=== PATIENT | male | born 1975 | race Two or more races ===

== ENCOUNTER 2023-09-14 09:34 | Outpatient (REF) | payer MEDICARE, SELFPAY ==
[2023-09-14 14:19] LABS: MANUAL DIFF FLAG NO
[2023-09-14 14:25] LABS: Basophils Absolute Auto 0.1 X10*3/uL (0.0-0.2); Eosinophils Absolute Auto 0.1 X10*3/uL (0.0-0.4); Eosinophils Percent Auto 1.4 % (0-4); Hematocrit 44.7 % (42.0-52.0); Hemoglobin 15.6 g/dl (14.0-18.0); Imm Gran Abs Auto 0.02 X10*3/uL (0.00-0.03); Imm Gran Pct Auto 0.3 % (0.0-0.4); Lymphocytes Absolute Auto 1.8 X10*3/uL (1.2-4.9); Mean Corpuscular HGB Conc 34.9 g/dl (31.0-36.0); Mean Platelet Volume 12.4 fL (9.4-12.4); Monocytes Absolute Auto 0.5 X10*3/uL (0.1-1.2); Monocytes Percent Auto 7.4 % (2-11); Neutrophils Absolute Auto 4.8 x10*3/uL (2.0-8.3); Neutrophils Percent Auto 64.9 % (45-73); Platelet Count 245 X10*3/uL (160-400); Red Cell Distribution Width 11.7 % (11.0-16.0); White Blood Count 7.3 X10*3/uL (4.8-10.8)
[2023-09-14 15:11] LABS: Creatinine Urine 65.13 mg/dL; Microalbum/Creatinine Ratio Ur 90.5 ug/mg cr (<30)
[2023-09-14 15:59] LABS: Alanine Aminotransferase 18 U/L (0-40); Albumin Level 4.5 g/dL (3.5-5.0); Alkaline Phosphatase 72 U/L (39-117); Anion Gap 21 (12-20); Aspartate Amino Transferase 23 U/L (5-37); Bilirubin Total 0.9 mg/dL (0.0-1.0); Blood Urea Nitrogen 12 mg/dL (9-16); Calcium 9.9 mg/dL (8.4-10.2); Carbon Dioxide 25 mmol/L (22-29); Chloride 95 mmol/L (96-108); Cholesterol 173 mg/dL (<200); Estimated Glomerular Filt Rate > 60; Glucose Random 371 mg/dL (60-115); HDL Cholesterol 31 mg/dL (>40); Iron 103 mcg/dL (45-160); LDL Cholesterol Calculated 109 mg/dL (<100); Percent Iron Saturation 43 % (15-50); Potassium 3.7 mmol/L (3.3-5.1); Sodium 137 mmol/L (135-145); TSH reflex Free T4 1.62 uIU/mL (0.32-4.0); Total Iron Binding Capacity 239 mcg/dL (228-428); Triglycerides 169 mg/dL (<150); Unsaturated Iron Binding 136 ug/dL
[2023-09-15 04:19] LABS: ~HepC Num1 0.19 S/CO (0.00-0.79); ~Hepatitis C Antibody Nonreactive (Nonreactive)
[2023-09-18 23:09] LABS: HIV RNA PCR Qn Copies Not Detected Copies/mL; HIV RNA PCR Qn Log Copies Not Detected Log cps/mL
== END 2023-09-14 09:35 | disposition home or self-care (01) ==
LOC: HO.CHCLDS 09:34
PROVIDERS: Visit Provider Internal Medicine
DX: E11.65 Type 2 diabetes mellitus with hyperglycemia (principal); Z79.4 Long term (current) use of insulin
CPT/HCPCS: 36415; 80053; 80061; 82043; 82570; 83540; 84443; 85025; 86803; 87536; 87900

== ENCOUNTER 2023-11-09 09:15 | Outpatient (REF) | payer MEDICARE, SELFPAY ==
[2023-11-09 15:20] LABS: Alanine Aminotransferase 19 U/L (0-40); Albumin Level 4.9 g/dL (3.5-5.0); Alkaline Phosphatase 58 U/L (39-117); Anion Gap 16 (12-20); Aspartate Amino Transferase 28 U/L (5-37); Bilirubin Total 0.8 mg/dL (0.0-1.0); Blood Urea Nitrogen 18 mg/dL (9-16); Calcium 10.3 mg/dL (8.4-10.2); Carbon Dioxide 26 mmol/L (22-29); Chloride 97 mmol/L (96-108); Cholesterol 175 mg/dL (<200); Estimated Glomerular Filt Rate > 60; Glucose Random 151 mg/dL (60-115); HDL Cholesterol 36 mg/dL (>40); LDL Cholesterol Calculated 106 mg/dL (<100); Potassium 3.4 mmol/L (3.3-5.1); Sodium 136 mmol/L (135-145); Total Protein 8.8 g/dL (6.5-8.0); Triglycerides 168 mg/dL (<150)
== END 2023-11-09 09:16 | disposition home or self-care (01) ==
LOC: HO.CHCLDS 09:15
PROVIDERS: Visit Provider Internal Medicine
DX: E11.65 Type 2 diabetes mellitus with hyperglycemia (principal); Z79.4 Long term (current) use of insulin
CPT/HCPCS: 36415; 80053; 80061

== ENCOUNTER 2023-12-08 08:48 | Outpatient (REF) | payer MEDICARE, SELFPAY ==
[2023-12-10 10:18] LABS: Follicle Stimulating Hormone 6.7 mIU/mL (1.4-12.8); Lutenizing Hormone 4.8 mIU/mL (1.5-9.3); Prolactin 3.3 ng/mL (2.0-18.0)
[2023-12-14 14:52] LABS: Testosterone, Free 61.2 pg/mL (35.0-155.0); Testosterone, Total 342 ng/dL (250-1100)
== END 2023-12-08 08:49 | disposition home or self-care (01) ==
LOC: HO.CHCLDS 08:48
PROVIDERS: Visit Provider Internal Medicine
DX: R68.82 Decreased libido (principal)
CPT/HCPCS: 36415; 83001; 83002; 84146; 84402; 84403

== ENCOUNTER 2024-03-21 08:32 | Outpatient (REF) | payer MEDICARE, SELFPAY ==
[2024-03-21 09:32] LABS: Alanine Aminotransferase 27 U/L (0-40); Albumin Level 4.5 g/dL (3.5-5.0); Alkaline Phosphatase 69 U/L (39-117); Anion Gap 11 (12-20); Aspartate Amino Transferase 35 U/L (5-37); Bilirubin Total 0.7 mg/dL (0.0-1.0); Blood Urea Nitrogen 12 mg/dL (9-16); Calcium 9.8 mg/dL (8.4-10.2); Carbon Dioxide 28 mmol/L (22-29); Chloride 107 mmol/L (96-108); Cholesterol 110 mg/dL (<200); Estimated Glomerular Filt Rate > 60; Glucose Fasting 109 mg/dL (60-99); HDL Cholesterol 23 mg/dL (>40); LDL Cholesterol Calculated 56 mg/dL (<100); Magnesium 2.3 mg/dL (1.6-2.6); Potassium 3.5 mmol/L (3.3-5.1); Sodium 142 mmol/L (135-145); Total Protein 8.1 g/dL (6.5-8.0); Triglycerides 158 mg/dL (<150)
[2024-03-21 09:48] LABS: Thyroid Stimulating Hormone 1.53 uIU/mL (0.32-4.0)
[2024-03-27 07:19] LABS: Metanephrine, Free 34 pg/mL (<=57); Normetanephrines, Free 68 pg/mL (<=148); Total Metanephrine, Free 102 pg/mL (<=205)
== END 2024-03-21 08:33 | disposition home or self-care (01) ==
LOC: HO.CHCLDS 08:32
PROVIDERS: Visit Provider Internal Medicine
DX: R07.89 Other chest pain (principal); R00.2 Palpitations; I10 Essential (primary) hypertension
CPT/HCPCS: 36415; 80053; 80061; 83735; 83835; 84443

== ENCOUNTER 2024-08-02 10:37 | Outpatient (REF) | payer OTHER, SELFPAY ==
--- OUTSIDE RECORDS SUMMARY | 2024-08-02 11:19 | XMS_ITS | Encounter Summary ---
Author Organization [employer] Address [address] [facility] [address] [place] [address] Care Team Providers Care Assembler Camper Name Role Phone Sam Bacon MD Primary Care Prov ider Reason for Visit * Reason Comments Filling Encounter Details Date Type Department Care Team ([facility] Contact Info) Description 07/12/2024 10:00 AM EST Office Visit [facility] ADULT DENTAL [address] [place], [place] [phone] Marco Steele [address] [place] [address] Social History Tobacco Use Types Packs/Day Years Used Date Smoking Tobacco: Former Cigarettes Q uit: 2002 Smokeless Tobacco: Never Alcohol Use Standard Drinks/Week Comments Never 0 (1 standard drink = 0.6 oz pur e alcohol) Depression Answer Date Recorded Patient Health Questionnaire-9 Score 11 09/14/2023 Patient Health Questionnaire-9 Score 11 09/14/2023 Last PHQ-9: Questionnaire Data Not on file 0 09/14/2023 Housing Stability Answer Date Recorded What is your housing situation today? I have hossein chaparro 09/07/[address] you li ve. Do you have problems with any of the following? None of the above 09/07/2023 Food Insecurity Answer Date Recorded Within the past 12 months, y ou worried that your food would run out before you got money to buy more: Never True 09/07/2023 Within the past 12 months,th e food you bought just didn't last and you didn't have enough money to get more: Never True 01/2024 Transportation Answer Date Recorded In the past 12 months, has l ack of transportation kept you from medical appts, meetings, work or from getting things needed for daily living? No 09/07/2023 Utilities Answer Date Recorded In the past 12 months, has t he electric, gas, oil or water company threatened to shut off services in your home? No 09/07/2023 Depression Answer Date Recorded Patient Health Questionnaire-2 Score 2 09/14/2023 Sex and Gender Information Value Date Recorded Sex Assigned at Male 08/25/2023 10:42 AM EST Legal Sex Male 10:40 AM EST Gender Identity Male 08/25/2023 10:42 AM EST Sexual Orientation Straight 08/25/2023 10 :42 AM EST documented as of this encounter Last Filed Vital Signs Vital Sign Reading Time Taken Comments Blood Pressure 124/86 07/12/2024 9:39 AM EST Pulse - - Temperature - - Respiratory Rate - - Oxygen Saturation - - Inhaled Oxygen Concentration - - Weight - - Height - - Body Mass Index - - documented in this encounter Progress Notes * Macro Steele - 07/12/2024 10:00 AM EST Dental procedures in this visit D5110.8 - BITE REGISTRATION (Completed) Service provider: Marco Steele Billing provider: Thi Boland DDS Patient ID: Juani Ornelas is a 49 y.o. male. Time Out: Date: 07/12/2024 Location: [facility] Tooth: Maxilla and Mandible Procedure: Dentures Verified the above with patient, sales assistant displays, and provider. Confirmed via patient's chart, intraorally and by radiographs. Silver Spray Worker: not applicable Upper and Lower arch bite registration done by Dr. Marco Steele for upper and lower acrylic complete/partial denture. Medical history: Reviewed in EHR Vitals: Blood pressure 124/86. Allergies: Reviewed in EHR Medications: Reviewed in EHR - Upper and lower bite registration done on wax rims. - Shade selected (with patient's choice): A3.5 - Teeth requested: Trubyte - Case to be sent to: [facility]. - Case asked to be back on: 07/26/24 Patient satisfied, left in stable condition NV: Try in teeth set in wax Provider: Dr. Marco Steele Punchboard Filling Machine Operator: Pao Hayes Supervising dentist: Dr. Attardi * Thi Boland DDS - 07/12/2024 10:00 AM EST I have reviewed the documentation and dental procedures completed by the rendering provider, Marco Steele DDS, and approve their chart entries for this visit. JONNY Angulo DDS documented in this encounter Plan of Treatment Upcoming Encounters Date Type Department Care Team (Late st Contact Info) Description 10/18/2024 8:00 AM EDT Office Visit [facility] ADULT DENTAL [address] [place] [address] Adolph Cummings Scheduled Orders Name Type Priority Associated Diagnoses Orde r Schedule DENTAL LAB DENTURES AND PARTIALS Dental Routine Ordered: 025 documented as of this encounter Procedures Procedure Name Priority Date/Time Associated Diagnosis Comments BITE REGISTRATION Routine 07/12/2024 10:00 AM EST documented in this encounter Visit Diagnoses Not on filedocumented in this encounter Additional Health Concerns Assessment Noted Time PHQ-9 Depression Total Score: 11 024 9:07 AM EDT documented as of this encounter Care Teams Assembler Camper Relationship Specialty Start Date End Date Sam Bacon MD [address] [place] [address] PCP - General Internal Medicine 09/14/23 documented as of this encounter
--- OUTSIDE RECORDS SUMMARY | 2024-08-02 11:19 | XMS_ITS | Encounter Summary ---
Author Organization [employer] Address [address] [facility] 7t [place] [address] Care Team Providers Care Burrer Operator Name Role Phone Sam Bacon MD Primary Care Prov ider Encounter Details Date Type Department Care Team (Late st Contact Info) Description 09/18/2023 Orders Only [facility] CHC MED & PEDS [address] [place], [place] [phone] Sam Bacon MD [address] [place] [address] Social History Tobacco Use Types Packs/Day Years [...] AM EST documented as of this encounter Plan of Treatment Upcoming Encounters Date Type Department Care Team (Late st Contact Info) Description 10/18/2024 8:00 AM EDT Office Visit [facility] ADULT DENTAL [address] [place] [address] Adolph Cummings documented as of this encounter Visit Diagnoses Not on filedocumented in this encounter Additional Health Concerns Assessment Noted Time PHQ-9 Depression Total Score: 11 024 9:07 AM EDT documented as of this encounter Care Teams Burrer Operator Relationship Specialty Start Date End Date Sam Bacon MD [address] [place] [address] PCP - General Internal Medicine 09/14/23 documented as of this encounter
--- OUTSIDE RECORDS SUMMARY | 2024-08-02 11:19 | XMS_ITS | Encounter Summary ---
Author Organization [employer] Address [address] [facility] [address] [place] [address] Care Team Providers Care Die Tripper Name Role Phone Sam Bacon MD Primary Care Prov ider Reason for Visit * Reason Onset Date Comments Chart Prep 07/17/2024 Encounter Details Date Type Department Care Team ([facility] st Contact Info) Description 07/17/2024 Telephone [facility] CHC MED & PEDS [address] [place] [address] Sam Bacon MD [address] [place] [address] Chart Prep Social History Tobacco Use Types Packs/Day Years [...] AM EST documented as of this encounter Miscellaneous Notes * Telephone Encounter - Floresita Sepulveda [place] - 07/17/2024 4:13 PM EST Chart Prep Labs: not applicable Images: not applicable Vaccines due: yes Referrals: complete Screenings: colonoscopy , eye exam , STI screening Overdue care gaps: A1C, Glucose, Disability screening documented in this encounter Plan of Treatment Upcoming Encounters Date Type Department Care Team (Late st Contact Info) Description 10/18/2024 8:00 AM EDT Office Visit [facility] ADULT DENTAL [address] [place] [address] Adolph Cummings documented as of this encounter Visit Diagnoses Not on filedocumented in this encounter Additional Health Concerns Assessment Noted Time PHQ-9 Depression Total Score: 11 024 9:07 AM EDT documented as of this encounter Care Teams Die Tripper Relationship Specialty Start Date End Date Sam Bacon MD [address] [place] [address] PCP - General Internal Medicine 09/14/23 documented as of this encounter
--- OUTSIDE RECORDS SUMMARY | 2024-08-02 11:19 | XMS_ITS | Clinical Summary ---
Author Organization [facility] Address [address] [place] [address] Care Team Providers Care Stave Jointer Name Role Phone Pcp, No MD Primary Care Provider Unavailabl e Allergies No known active allergies Medications losartan-hydroch lorothiazide (HYZAAR) 100-25 mg per tablet Take 1 tablet by mouth daily. Active metoprolol succinate XL (TOPROL-XL) 100 mg 24 hr tablet Take 100 mg by mouth daily. Active pregabalin (LYRICA) 100 mg capsule Take 100 mg by mouth 2 (two) times a day. Active atorvastatin (LIPITOR) 20 mg tablet Take 20 mg by mouth daily. Active OLANZapine (ZyPREXA) 15 mg tablet Take 15 mg by mouth nightly. Active clonazePAM (KlonoPIN) 2 mg tablet Take 2 mg by mouth 2 (two) times a day as needed for seizures. Active buPROPion XL (WELLBUTRIN XL) 300 mg 24 hr tablet Take 300 mg by mouth daily. Active gabapentin (NEURONTIN) 600 mg tablet Take 600 mg by mouth 3 (three) times a day. Active amLODIPine (NORVASC) 5 mg tablet Take 5 mg by mouth daily. Active Social History Tobacco Use Types Packs/Day Years Used Date Smoking Tobacco: Every Day Smokeless Tobacco: Never Alcohol Use Standard Drinks/Week Comments No 0 (1 standard drink = 0.6 oz pur e alcohol) Sex and Gender Information Value Date Recorded Sex Assigned at Not on file Legal Sex Male 9:58 AM EST Gender Identity Not on file Sexual Orientation Not on file Plan of Treatment Health Maintenance Due Date Last Done Comments CT Colonography 1975 Colonoscopy 1975 Colorectal Cancer Screening 1975 FIT-DNA (Cologuard) 1975 FIT 1975 FOBT 1975 Flex Sigmoidoscopy - 5y 1975 HIV Screening 1975 DTaP,Tdap,and Td Vaccines (1 - Tdap) 1993 Hepatitis B Vaccines (1 of 3 - 19+ 3-dose series) 1994 COVID-19 Vaccine (1 - 2023-2 5 season) 2024 Influenza Vaccine (#1) 2024 Zoster Vaccines (1 of 2) 2025 HPV Vaccines Aged Out No longer eligi ble based on patient's age to complete this topic Hepatitis A Vaccines Aged Out No long er eligible based on patient's age to complete this topic MMR Vaccines Aged Out No longer eligi ble based on patient's age to complete this topic Meningococcal Vaccine Aged Out No niecy shamir eligible based on patient's age to complete this topic Pneumococcal Vaccine: Pediat rics (0 to 5 Years) and At-Risk Patients (6 to 64 Years) Aged Out No longer eligible b ased on patient's age to complete this topic Insurance MEDICAID OUT OF STATE MEDICARE [place] [address] Care Teams Stave Jointer Relationship Specialty Start Date End Date PcpAmeila MD [address] [place] [address] PCP - General Internal Medicine 06/20/18
--- OUTSIDE RECORDS SUMMARY | 2024-08-02 11:19 | XMS_ITS | Encounter Summary ---
Author Organization [email or web address] Address [address] [facility] 7t [place] [address] Care Team Providers Care Historiographer Name Role Phone Sam Bacon MD Primary Care Prov ider Encounter Details Date Type Department Care Team (Late st Contact Info) Description 07/18/2024 8:45 AM EST Office Visit [facility] CHC MED & PEDS [address] [place], [place] [phone] Sam Bacon MD [address] [place] [address] Encounter for immunization (Primary Dx); Type 2 diabetes mellitus with hyperglycemia, with long-term current use of insulin (CMS/HCC); Primary hypertension; Screening for colon cancer Social History Tobacco Use Types Packs/Day Years [...] Sign Reading Time Taken Comments Blood Pressure 141/92 07/18/2024 8:57 AM EST Pulse 100 07/18/2024 8:57 AM EST Temperature 37.1 ??C (98.7 ??F) 07/18/2024 8:57 AM ES T Respiratory Rate 20 07/18/2024 8:57 AM EST Oxygen Saturation - - Inhaled Oxygen Concentration - - Weight 85.7 kg (189 lb) 07/18/2024 8:57 AM EST Height 172.7 cm (5' 8 ) 07/18/2024 8:57 AM EST Body Mass Index 28.74 07/18/2024 8:57 AM EST documented in this encounter Progress Notes * Sam Coreas MD - 07/18/2024 8:45 AM EST Subjective Patient ID: Juani Ornelas is a 49 y.o. male who presents for No chief complaint on file.. Diabetes He presents for his follow-up diabetic visit. He has type 2 diabetes mellitus. His disease course has been improving. Pertinent negatives for hypoglycemia include no headaches. Pertinent negatives for diabetes include no chest pain, no fatigue, no foot paresthesias, no foot ulcerations, no polydipsia, no polyphagia and no polyuria. Hypertension This is a chronic problem. The problem is controlled. Pertinent negatives include no chest pain, headaches, palpitations, peripheral edema or shortness of breath. Review of Systems Constitutional: Negative for fatigue. Respiratory: Negative for shortness of breath. Cardiovascular: Negative for chest pain and palpitations. Endocrine: Negative for polydipsia, polyphagia and polyuria. Neurological: Negative for headaches. Objective Physical Exam Constitutional: Appearance: Normal appearance. Cardiovascular: Rate and Rhythm: Normal rate. Pulmonary: Effort: Pulmonary effort is normal. No respiratory distress. Breath sounds: Normal breath sounds. No stridor. No wheezing or rhonchi. Abdominal: General: Abdomen is flat. There is no distension. Tenderness: There is no abdominal tenderness. There is no guarding or rebound. Neurological: General: No focal deficit present. Mental Status: He is alert and oriented to person, place, and time. Psychiatric: Mood and Affect: Mood normal. Behavior: Behavior normal. Assessment/Plan Problem List Items Addressed This Visit Type 2 diabetes mellitus with hyperglycemia, with long-term current use of insulin ([facility]) Patient underwent sleeve gastrectomy, has lost around 30lbs since, his A1c is much better, today 6.8%, encouraged to keep low carb/no sugar diet, followed by endocrinology, no reported episode of hypoglycemia Pending eye exam Relevant Orders POCT Glucose (Completed) POCT HGB A1C (Completed) Primary hypertension Slightly elevated on todays visit, but he has anxiety/WCS, at home has remained stable, continue low sodium diet and exercise as tolerated Screening for colon cancer Patient refers has a appointment for august Other Visit Diagnoses Encounter for immunization - Primary Relevant Orders PCV-20 VACCINE 6 wks + (Completed) documented in this encounter Miscellaneous Notes * Assessment & Plan Note - Sam Coreas MD - 07/18/2024 9:48 AM ESTAssociated Problem(s): Screening for colon cancer Patient refers has a appointment for august * Assessment & Plan Note - Sam Coreas MD - 07/18/2024 9:48 AM ESTAssociated Problem(s): Type 2 diabetes mellitus with hyperglycemia, with long-term current use of insulin ([facility]) Patient underwent sleeve gastrectomy, has lost around 30lbs since, his A1c is much better, today 6.8%, encouraged to keep low carb/no sugar diet, followed by endocrinology, no reported episode of hypoglycemia Pending eye exam * Assessment & Plan Note - Sam Coreas MD - 07/18/2024 9:46 AM ESTAssociated Problem(s): Primary hypertension Slightly elevated on todays visit, but he has anxiety/WCS, at home has remained stable, continue low sodium diet and exercise as tolerated documented in this encounter Plan of Treatment Upcoming Encounters Date Type Department Care Team (Late st Contact Info) Description 10/18/2024 8:00 AM EDT Office Visit [facility] ADULT DENTAL [address] [place] [address] Adolph Cummings documented as of this encounter Procedures Procedure Name Priority Date/Time Associated Diagnosis Comments POCT GLYCATED HEMOGLOBIN, TOTAL Routine 07/18/2024 9:02 AM EST Type 2 diabetes mellitus with hyperglycemia, with long-term current use of insulin ([facility]) POCT GLUCOSE Routine 07/18/2024 9:01 AM EST Type 2 diabetes mellitus with hyperglycemia, with long-term current use of insulin ([facility]) documented in this encounter Results * (ABNORMAL) POCT HGB A1C (07/18/2024 9:02 AM EST) Hemoglobin A1C 6.8(A) 4.0 - 6.0 % QC Media Lot # [id number] Lot# Expiration Date Blood 07/18/2024 9:02 AM EST us Sam Coreas MD POINT OF CARE TEST ENTER/EDIT ORDERABLES Final Result * POCT Glucose (07/18/2024 9:01 AM EST) Glucose Blood, POC 125 60 - 200 mg/dL QC Media Lot # [id number] Lot# Expiration Date Blood Capillary blood specimen / Unknown 07/18/2024 9:01 AM EST Sam Coreas MD POINT OF CARE TEST ENTER/EDIT ORDERABLES Final Result documented in this encounter Visit Diagnoses Diagnosis Encounter for immunization- Primary Type 2 diabetes mellitus with hyperglycemia, with long-term current use of insulin ([facility]) Primary hypertension Unspecified essential hypertension Screening for colon cancer Special screening for malignant neoplasms, colon documented in this encounter Additional Health Concerns Assessment Noted Time PHQ-9 Depression Total Score: 11 09/13/ 024 9:07 AM EDT documented as of this encounter Care Teams Historiographer Relationship Specialty Start Date End Date Sam Bacon MD [address] [place] [id number] PCP - General Internal Medicine 09/14/23 documented as of this encounter
--- OUTSIDE RECORDS SUMMARY | 2024-08-02 11:19 | XMS_ITS | Encounter Summary ---
Author Organization [employer] Address [address] [facility] [address]t [place] [address] Care Team Providers Care Thermal Technician Name Role Phone Sam Bacon MD Primary Care Prov ider Encounter Details Date Type Department Care Team (Latest Contact Info) Description 07/18/2024 Travel Social History Tobacco Use Types Packs/Day Years [...] [facility] ADULT [facility] [address] [place] [address] Adolph Cummings documented as of this encounter Visit Diagnoses Not on filedocumented in this encounter Additional Health Concerns Assessment Noted Time PHQ-9 Depression Total Score: 11 024 9:07 AM EDT documented as of this encounter Care Teams Thermal Technician Relationship Specialty Start Date End Date Sam Bacon MD [address] [place] [address] PCP - General Internal Medicine 09/14/23 documented as of this encounter
--- OUTSIDE RECORDS SUMMARY | 2024-08-02 11:19 | XMS_ITS | Clinical Summary ---
Author Organization [facility] Address [address] [place] [address] Care Team Providers Care Etymology Teacher Name Role Phone Sam Bacon MD Primary Care Prov ider Allergies Active Allergy Reactions Criticality Noted Date Comments Shellfish Allergy Anaphylaxis High 10/06/2017 Shellfish-Derived Products Anaphylaxis High 10/07/19 18 Shrimp Extract Swelling 03/15/2017 All sea food Shrimp Flavor Agent (Non-Screening) Angioedema 09/14/2023 Medications rosuvastatin (Crestor) 40 MG tablet Take 1 tablet (40 mg) by mouth in the morning. 30 tablet 09/18/19 24 025 Active chlorthalidone (Hygroton) 25 MG tablet Take 1 tablet (25 mg) by mouth in the morning. 90 tablet 3 09/18/19 24 025 Active Continuous Blood Gluc Sensor (FreeStyle Oj 2 Sensor) [facility] Apply 1 sensor every 14 days 2 each 09/18/19 24 Active fluticasone (Flonase) 50 MCG/ACT nasal spray Administer 1-2 sprays into each nostril in the morning. Shake gently. Before first use, prime pump. After use, clean tip and replace cap. 16 g 2 10/12/19 24 025 Active spironolactone (Aldactone) 50 MG tablet Take 1 tablet (50 mg) by mouth 2 times daily. 60 tablet 10/27/19 24 025 Active amLODIPine (Norvasc) 5 MG tablet Take 1 tablet (5 mg) by mouth Once per day. 90 tablet 3 11/02/19 24 05/02/2 025 Active Farxiga 10 MG Take 1 tablet by mouth Once per day. 08/23/19 Active buPROPion XL (Wellbutrin XL) 300 MG 24 hr tablet Take 300 mg by mouth in the morning. Active clonazePAM (KlonoPIN) 2 MG tablet Take 1 tablet by mouth 2 times daily. 01/14/20 Active lithium 300 MG tablet Take 2 tablets by mouth 2 times daily. 03/03/20 Active metoprolol succinate XL (Toprol-XL) 100 MG 24 hr tablet Take 100 mg by mouth Once per day. Active OLANZapine (ZyPREXA) 10 MG tablet Take 10 mg by mouth at bedtime. 08/24/19 Active zolpidem (Ambien) 10 MG tablet Take 10 mg by mouth if needed at bedtime. 11/06/19 Active omeprazole (PriLOSEC) [address] capsule Take 20 mg by mouth Once per day. 09/19/19 24 Active Ozempic, 0.25 or 0.5 MG/DOSE, 2 MG/3ML solution pen-injector Inject 0.5 mg under the skin every 7 (seven) days. 10/19/19 Active hydrALAZINE (Apresoline) 50 MG tablet Take 1 tablet (50 mg) by mouth 3 times daily. 90 tablet 11 11/09/19 24 Active triamcinolone (Kenalog) 0.1 % cream Apply topically if needed in the morning and at bedtime (pain and swelling). 30 g 5 12/07/19 24 Active diphenhydrAMIN E (BENADryl) 25 MG tablet Take 1 tablet (25 mg) by mouth every 6 (six) hours if needed for itching. 30 tablet 12/07/19 24 Active Diclofenac Sodium (Voltaren) 1 % gel Apply 2 g topically 3 times daily. 300 g 01/12/20 Active aspirin 81 MG EC tablet Take 81 mg by mouth Once per day. 04/03/20 Active EPINEPHrine (Epipen) 0.3 MG/0.3ML injection syringe Inject as directed. Active pregabalin (Lyrica) 150 MG capsule Take 150 mg by mouth 2 times daily. 12/29/19 Active Lantus SoloStar 100 UNIT/ML pen Inject 42 Units under the skin 2 times daily. 3 mL 07/18/19 25 Active NovoLOG FLEXPEN 100 UNIT/ML pen Inject 3 Units under the skin with breakfast, with lunch, and with evening meal. 10 mL 07/18/19 25 Active semaglutide (Ozempic, 1 MG/DOSE,) 4 MG/3ML solution pen-injector Inject 1 mg under the skin 1 (one) time per week. 1 each 07/18/19 25 Active irbesartan (Avapro) 300 MG tablet Take 1 tablet (300 mg) by mouth at bedtime. 90 tablet 07/18/19 026 Active ibuprofen 600 MG tabletIndicati ons:Viral syndrome Take 1 tablet (600 mg) by mouth every 8 (eight) hours if needed for moderate pain or fever. 100 tablet 08/02/19 025 Active acetaminophen (Acetaminophen 8 Hour) 650 MG ER tabletIndicati ons:Viral syndrome Take 1 tablet (650 mg) by mouth every 8 (eight) hours if needed for moderate pain (fever). Do not crush, chew, or split. 100 tablet 08/02/19 25 026 Active irbesartan (Avapro) 300 MG tablet Take 1 tablet (300 mg) by mouth at bedtime. 90 tablet 09/18/19 025 Discontinued(Re order (will not trigger notification to Pharmacy)) Lantus SoloStar 100 UNIT/ML pen Inject 70 Units under the skin 2 times daily. 3 mL 10/12/19 025 Discontinued(Re order (will not trigger notification to Pharmacy)) NovoLOG FLEXPEN 100 UNIT/ML pen Inject 3 Units under the skin with breakfast, with lunch, and with evening meal. 10/19/19 025 Discontinued(Re order (will not trigger notification to Pharmacy)) Active Problems Problem Noted Date Diagnosed Date Bilateral lower extremity edema 11/02/2023 Assessment & Plan (11/02/2023 9:11 AM EDT): Bilateral lower extremity swelling, most likely related to amlodipine, will decrease dose follow up as scheduled, continue low sodium diet. High cholesterol 10/27/2023 Other chest pain 10/12/2023 Assessment & Plan (10/12/2023 11:57 AM EDT): Patient has hx of ND, refers had a chest pain last Monday, did not seek medical advise, EKG was done. 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, stress test was done on 2021 Screening for colon cancer 10/12/2023 Assessment & Plan (07/18/2024 9:48 AM EST): Patient refers has a appointment for august Assessment & Plan (10/12/2023 12:02 PM EDT): Will refer for screening colonoscopy Type 2 diabetes mellitus wit h hyperglycemia, with long-term current use of insulin 09/14/2023 Assessment & Plan (07/18/2024 9:48 AM EST): Patient underwent sleeve gastrectomy, has lost around 30lbs since, his A1c is much better, today 6.8%, encouraged to keep low carb/no sugar diet, followed by endocrinology, no reported episode of hypoglycemia Pending eye exam Assessment & Plan (11/09/2023 9:12 AM EDT): Improving, followed by endocrinology, rbelsus was changed to ozempic, target <7.0% Assessment & Plan (10/12/2023 11:53 AM EDT): Not at target, he is not adhering to diet, on farxiga, rybelsus, lantus and aspart. Will increase lantus to 70 units bid, follow up with endocrinology. Assessment & Plan (09/18/2023 2:42 PM EDT): Will send freestyle oj sensor, Assessment & Plan (09/14/2023 6:05 PM EDT): Not at target, he is not adhering to diet recommendations, he is on farxiga 10mg, rybelsus 14mg, lantus 65 units BID, and aspart as per scale Will refer for eye exam Primary hypertension 09/14/2023 Assessment & Plan (07/18/2024 9:46 AM EST): Slightly elevated on todays visit, but he has anxiety/WCS, at home has remained stable, continue low sodium diet and exercise as tolerated Assessment & Plan (12/07/2023 10:07 AM EDT): Not at target, he is not following diet recommendations and refers is forgetting to take afternoon pills, discussed importance of treatment adherence and risk of not controlling his blood pressure, will follow up in 1 month Assessment & Plan (11/09/2023 9:12 AM EDT): Not at target, will increase hydralazine to TID, continue low sodium diet, exercise, weight loss, bp monitoring, bp target <130/80, new labs will be ordered Assessment & Plan (11/02/2023 9:12 AM EDT): Not at target, will add hydralazine, follow up as scheduled, continue low sodium diet and exercise as tolerated Assessment & Plan (10/12/2023 11:51 AM EDT): Improving, on irbersartan 300mg, chlorthalidone 25mg, amlodipine 10mg, will add spironolactone 50mg, will follow up in 2 weeks Assessment & Plan (10/06/2023 10:02 AM EDT): Not controlled, on irbersatan 300mg and chlorthalidone 25mg, will add amlodipine 10mg, bp target <130/80, encouraged to keep sodium diet below 2000mg daily, follow up as scheduled In 1 week Assessment & Plan (09/18/2023 2:42 PM EDT): Not controlled, will increase irbersartan to 300mg daily and chlorthalidone 25mg daily, follow up as scheduled, target <130/80 Assessment & Plan (09/14/2023 6:04 PM EDT): Not at target but he did not took his medication this morning, reviewed importance of daily monitoring, he is on irbersartan 150/hydrochlorothiazide 12.5 and metoprolol tartrate 100mg Will follow up in 1 month Mixed hyperlipidemia 09/14/2023 Assessment & Plan (10/12/2023 11:53 AM EDT): On rosuvastatin 40mg, continue same treatment Assessment & Plan (09/14/2023 6:06 PM EDT): On rosuvastatin 20mg, will order new labs for guidance of therapy Bipolar disorder, in partial remission, most recent episode mixed 09/14/2023 Assessment & Plan (09/14/2023 6:10 PM EDT): [facility] on bupropion 300mg, lithium 300mg, olanzapine 15mg, and clonazepam 2mg, no suicidal/homicidal ideas Schizophrenia in remission 09/14/2023 Gastroesophageal reflux disease without esophagi tis 09/14/2023 Assessment & Plan (09/14/2023 6:10 PM EDT): On Omeprazole, continue lifestyle modifications Bilateral carpal tunnel syndrome 09/20/2022 Cubital tunnel syndrome 09/20/2022 H. 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 10/08/2020 Positive for macroalbuminuria 07/25/2020 BPH with obstruction/lower urinary tract symptom s 04/03/2019 Chronic pain in testicle 04/03/2019 Erectile dysfunction 04/03/2019 Obesity (BMI 30.0-34.9) 01/17/2019 Class 1 obesity due to exces s calories with body mass index (BMI) of 32.0 to 32.9 in adult 09/27/2018 Diabetes mellitus type 2 with neurological manif estations 11/28/2017 Assessment & Plan (01/07/2024 11:23 PM EDT): Followed by endocrinology, improving, continue same treatment Assessment & Plan (12/07/2023 10:05 AM EDT): A1c improved, today was 10.4%, follow up with endocrinology, Depression 10/24/2017 Balanitis 10/06/2017 Overview (10/27/2023): Uncircumcised. Urology referral Vertebral body hemangioma 10/06/2017 Overview (10/27/2023): MRI - L 1 Hyperlipidemia, mixed 10/06/2017 Overview (10/27/2023): Last Assessment & Plan: Adding Crestor 20 mg at bedtime for cardiovascular risk reduction Hypertension 10/06/2017 Overview (10/27/2023): Last Assessment & Plan: Continue current antihypertensive medications for the time being, reviewed the importance of reading labels and observing a less than 2000 mg/day sodium diet trying to avoid packaged or processed foods; also reviewed the importance of regular aerobic exercise to uphold cardiovascular health-recommended 30 minutes daily of some sort of moderately paced aerobic activity Assessment & Plan (01/07/2024 11:24 PM EDT): At home has been less than 130/80, most likely WCS related, continue current medications, encouraged low sodium diet and exercise as tolerated Fall 03/21/2017 Overview (10/27/2023): 03/17/17 [facility] Xray cervical spine WNL, lumbar spine WNL, pelvis WNL Cervicalgia 03/17/2017 Hypokalemia 03/17/2017 Right shoulder pain 03/17/2017 Overview (10/27/2023): Xrau 03/17/15 in [place] shows right glenoid degenerative subarticular cyst vs screw tracts, Overview: Xrau 03/17/15 in [place] shows right glenoid degenerative subarticular cyst vs screw tracts, 03/17/15 (in [place]) XR = glenoid degenerative subarticular cyst vs screw tracts Uncircumcised male 03/17/2017 Chest pain 03/17/2017 Overview (10/27/2023): 03/28/16 Treadmill stress test in [place] clinically positive for ischemia. SPECT study shows normal myocardial perfusion, normal LV EF - Possible microvascular disease -Has previously described symptoms of stable angina-he states that the symptoms he had prior to his hospitalization in December were chest pressure radiating to the left arm and neck occurring while he was cleaning the house; however more recently has had atypical symptoms as well -Had a previously negative stress test at a good workload however his symptoms were convincing and he had chest pain on the treadmill so proceeded to cardiac cath on 04/20/2016-the report states that he had normal epicardial coronaries and normal LV function with an ejection fraction of 65%, competent mitral valve, no gradient across the aortic valve -He was hospitalized again in December 2017 at [facility] for chest pain- ruled out with serial cardiac enzymes and again had an unremarkable nremarkable stress test -More recently presented again to [facility] May 2022 with symptoms of atypical chest pain as well as symptoms that sounded more like vertigo- presented with low blood pressures and received IV fluids with improvement in blood pressures; he again ruled out with serial cardiac enzymes, had an MRI of the brain did which did not show any acute abnormalities, was given meclizine as needed, had some of his antihypertensives decreased however, they have since been increased back up to previous dosing - Echocardiogram in May 2022 during the hospitalization showed a limited study with poor visualization but grossly low normal LV systolic function without obvious wall motion abnormalities, no hemodynamically significant valve disease, poorly visualized RV with reduced systolic function Last Assessment & Plan: Atypical and possibly noncardiac versus related to microvascular disease; I am not as worried about his symptoms however, patient is at relatively high risk for cardiovascular events given his extremely poorly controlled diabetes, continue to work with endocrinology on this; however, for risk reduction purposes, I am starting him on statin- Crestor 20 mg at bedtime-side effects reviewed with the patient who verbalized understanding and wishes to proceed, blood pressure is suboptimally controlled at today's visit but he has also had issues with hypotension in the past so we are cautiously continuing current meds which are amlodipine 5 mg daily, irbesartan/hydrochlorothiazide 150 x 12.5 mg daily, metoprolol 100 mg p.o. twice daily Type 2 diabetes mellitus wit h complication, without long-term current use of insulin 03/17/2017 Assessment & Plan (10/27/2023 10:35 AM EDT): Followed by endocrinology, on , rybelsus was changed to ozempic, lantus was increased to 78 units and aspart scale was increased 2 units, encouraged low carb/no sugar diet, continue exercise as tolerated, follow up in 1 month Chronic low back pain 03/17/2017 Overview (10/27/2023): [place]ray 03/17/15 in [place] shows lumbar spasm, L3-L4 and L4-L5 DDD with secondary spondylosis at the L3-L4 level MRI lumbar spine 06/30/15 shows early degenerative changes at L4-L55 with decreased signal intesnsity and posterior bulging of annulus fibrosis, no disc extrusions or protrusions are detected. L1 vertebral body hemangioma. Overview: Xray 03/17/15 in [place] shows lumbar spasm, L3-L4 and L4-L5 DDD with secondary spondylosis at the L3-L4 level MRI lumbar spine 06/30/15 shows early degenerative changes at L4-L55 with decreased signal intesnsity and posterior bulging of annulus fibrosis, no disc extrusions or protrusions are detected. L1 vertebral body hemangioma. Seafood allergy 03/15/2017 Essential hypertension, benign 01/05/2017 Assessment & Plan (10/27/2023 10:33 AM EDT): Improved, will increase spironolactone to 50mg bid, continue with rest of treatment, keep low sodium diet and exercise as tolerated, Follow up in 1 month Encounters Date Type Department Care Team Description 08/02/2024 8:45 AM EST Office Visit [facility] [address] [place] [address] Roberta Quinones FNP Viral syndrome (Primary Dx); Encounter for immunization 08/02/2024 Travel 07/30/2024 1:00 PM EST Office Visit [facility] [address] [place] [address] Vidya Steelericio 07/18/2024 8:45 AM EST Office Visit [facility] [address] [place] [address] Sam Bacon MD Encounter for immunization (Primary Dx); Type 2 diabetes mellitus with hyperglycemia, with long-term current use of insulin ([facility]); Primary hypertension; Screening for colon cancer 07/18/2024 Travel 07/17/2024 Telephone [facility] [address] [place] [address] Sam Bacon MD Chart Prep 07/12/2024 10:00 AM EST Office Visit [facility] [address] [place] [address] Ivette Marco 05/09/2024 9:00 AM EST Office Visit [facility] [address] [place] [address] Nat Randall DDS from Last 3 Months Immunizations Name Administration Dates Next Due Influenza Injectable Quadriv alant Preservative Free IIV4 MDCK 04/14/2020 Influenza injectable quadrivalent preservative f ree 05/17/2017 Influenza, IIV3, injectable 05/17/2017 Influenza, Injectable, MDCK, preservative free 0 08/02/2024 Pfizer Covid-19 Vaccine 12+ 08/02/2024 Pneumococcal Conjugate PCV 20 07/18/2024 Pneumococcal Polysaccharide PPSV23 10/24/2017 TD (adult), 2 Lf tetanus tox oid, preservative free, adsorbed 01/29/2021 Td (adult) 01/29/2021 Tdap 09/14/2023 Family History Medical History Relation Name Comments Heart disease Father Breast cancer Mother Diabetes Mother Hypertension Mother Rheum arthritis Sister Thyroid disease Sister Relation Name Status Comments Father Mother Sister Social History Tobacco Use Types Packs/Day Years Used Date Smoking Tobacco: Former Cigarettes Q uit: 2002 Smokeless Tobacco: Never Tobacco Cessation:Counseling Given: Not Answered Alcohol Use Standard Drinks/Week Comments Never 0 [...] Orientation Straight 08/25/2023 10 :42 AM EST Last Filed Vital Signs Vital Sign Reading Time Taken Comments Blood Pressure 142/89 08/02/2024 8:53 AM EST Pulse 113 08/02/2024 8:53 AM EST Temperature 37.2 ??C (98.9 ??F) 08/02/2024 8:53 AM ES T Respiratory Rate 20 08/02/2024 8:53 AM EST Oxygen Saturation 99% 08/02/2024 8:53 AM EST Inhaled Oxygen Concentration - - Weight 87.3 kg (192 lb 6.4 oz) 08/02/2024 8:53 A M EST Height 172.7 cm (5' 8 ) 08/02/2024 8:53 AM EST Body Mass Index 29.25 08/02/2024 8:53 AM EST Plan of Treatment Upcoming Encounters Date Type Department Care Team (Late st Contact Info) Description 10/18/2024 8:00 AM EDT Office Visit [facility] [address] [place] [address] Adolph Cummings Health Maintenance Due Date Last Done Comments CT Colonography 1975 Colonoscopy 1975 Colorectal Cancer Screening 1975 Dental Oral Exam 1975 FIT DNA/Cologuard 1975 FIT 1975 FOBT 1975 Sigmoidoscopy 1975 Eye Exam 1985 Alcohol/Substance Use Screening 1987 Family Planning (PISQ) 1990 Hepatitis B Vaccines (1 of 3 - 19+ 3-dose series) 1994 Depression Monitoring (PHQ-9) 03/16/2024 09/14/2023, 09/14/2023 Depression Screening 09/13/2024 09/14/2023, 09/14/19 24 SDOH Screening 09/13/2024 09/14/2023 Dental Prophylaxis 10/18/2024 04/18/2024 Diabetes: Foot Exam 11/08/2024 11/09/2023, 11/09/2023, 11/09/2023, Additional history exists Lipid Panel 11/08/2024 11/09/2023, 09/14/2023 Diabetes: Hemoglobin A1C 01/15/20252 025, 12/07/2023, 09/14/2023 Zoster Vaccines (1 of 2) 2025 Dental X-Ray: Bitewings 04/19/2025 04/18/2024, 10/26 Tobacco Screening 07/30/2025 07/30/2024 Dental X-Ray: Full Mouth 04/19/2027 04/18/2024 DTaP/Tdap/Td Vaccines (2 - Td or Tdap) 09/13/2033 09/14/2023, 01/29/2021, 01/29/2021 HIV Screening 09/13/2033 RSV Patients and Patients Aged 60 years or older (1 - 1-dose 75+ series) 2050 Hepatitis C Screening Completed 09/14/2023 Pneumococcal Vaccine: Pediatrics (0 to 5 Years) and At-Risk Patients (6 to 49) Years) Completed 07/18/2024, 10/24/2017 COVID-19 Vaccine Completed 08/02/2024 Influenza Vaccine Completed 08/02/2024, , 05/17/2017, Additional history exists HIB Vaccines Aged Out No longer eligi ble based on patient's age to complete this topic HPV Vaccines Aged Out No longer eligi ble based on patient's age to complete this topic Hepatitis A Vaccines Aged Out No long er eligible based on patient's age to complete this topic IPV Vaccines Aged Out No longer eligi ble based on patient's age to complete this topic Meningococcal Vaccine Aged Out No niecy shamir eligible based on patient's age to complete this topic RSV under 20 months Aged Out No longe r eligible based on patient's age to complete this topic Rotavirus Vaccines Aged Out No longer eligible based on patient's age to complete this topic Procedures Procedure Name Priority Date/Time Associated Diagnosis Comments POCT RAPID COVID ANTIGEN Routine 08/02/2024 10:39 AM EST Viral syndrome POCT INFLUENZA A Routine 08/02/2024 10:3 8 AM EST Viral syndrome POCT INFLUENZA B Routine 08/02/2024 10:3 7 AM EST Viral syndrome WAX TRY IN Routine 07/30/2024 1:00 PM EST POCT GLYCATED HEMOGLOBIN, TOTAL Routine 07/18/2024 9:02 AM EST Type 2 diabetes mellitus with hyperglycemia, with long-term current use of insulin ([facility]) POCT GLUCOSE Routine 07/18/2024 9:01 AM EST Type 2 diabetes mellitus with hyperglycemia, with long-term current use of insulin ([facility]) BITE REGISTRATION Routine 07/12/2024 10: 00 AM EST EMG Routine 06/17/2024 Jaw pain 29 MOD RESTORATIVE - RESIN-BASED COMPOSITE RESTORATIONS - DIRECT - RESIN-BASED COMPOSITE - THREE SURFACES, POSTERIOR Routine 05/09/2024 9:00 AM EST PROPHYLAXIS - ADULT Routine 04/18/2024 8 :00 AM EDT DIAGNOSTIC - DIAGNOSTIC IMAGING - INTRAORAL - COMPREHENSIVE SERIES OF RADIOGRAPHIC IMAGES Routine 04/18/2024 8:00 AM EDT LIPID PANEL, STANDARD Routine 11/09/2023 9:17 AM EDT Type 2 diabetes mellitus with hyperglycemia, with long-term current use of insulin (CMS/HCC) HEPATITIS C AB W/REFL TO HCV RNA, QN, PCR Routine 09/14/2023 9:48 AM EDT Type 2 diabetes mellitus with hyperglycemia, with long-term current use of insulin (CMS/HCC) from Last 3 Months or Most Recently Relevant to Health Maintenance Results * POCT Rapid Covid-19 BinaxNOW (08/02/2024 10:39 AM EST) [facility] Rapid COVID Ag Negative QC Media Lot # [id number] Lot# Expiration Date 3182,026 Comment:controls passed Swab 08/02/2024 10:3 9 AM EST us Roberta Phalen SAND TESTER POINT OF CARE TEST ENTER/EDIT ORDERABLES Final Result * POCT Rapid Influenza A OSOM (08/02/2024 10:38 AM EST) [facility] Rapid Influenza A Ag Negative Negative, Indeterminate QC Media Lot # [id number] Lot# Expiration Date Comment:control passed Swab Nasopharyngeal structure / Unknown 08/02/2024 10:38 AM EST us Roberta Phalen SAND TESTER POINT OF CARE TEST ENTER/EDIT ORDERABLES Final Result * POCT Rapid Influenza B OSOM (08/02/2024 10:37 AM EST) [facility] Rapid Influenza B Ag Negative Negative, Indeterminate QC Media Lot # [id number] Comment:control passed Lot# Expiration Date , Swab 08/02/2024 10:3 7 AM EST Roberta Metztaylor SAND TESTER POINT OF CARE TEST ENTER/EDIT ORDERABLES Final Result * (ABNORMAL) POCT HGB A1C (07/18/2024 9:02 AM EST) Pathologist [facility] Hemoglobin A1C 6.8(A) 4.0 - 6.0 % QC Media Lot # [id number] Lot# Expiration Date Blood 07/18/2024 9:02 AM EST Sam Coreas MD POINT OF CARE TEST ENTER/EDIT ORDERABLES Final Result * POCT Glucose (07/18/2024 9:01 AM EST) Pathologist [facility] Glucose Blood, POC 125 60 - 200 mg/dL QC Media Lot # [id number] Lot# Expiration Date ,025 Blood Capillary blood specimen / Unknown 07/18/2024 9:01 AM EST Sam Coreas MD POINT OF CARE TEST ENTER/EDIT ORDERABLES Final Result * EMG (06/17/2024) Sam Coreas MD NEUROLOGY ORDERABL ES Final Result * (ABNORMAL) Lipid Panel, Standard (11/09/2023 9:17 AM EDT) Pathologist [facility] Triglycerides 168(H) <150 mg/dL [facility] Comment:Desirable Triglyceri de: less than 150 mg/dLBorderline High Triglyceride 150-199 mg/dLHigh Triglyceride: 200-499 mg/dLVery High Triglyceride: greater than or equal to 5OO mg/dL Cholesterol 175 <200 mg/dL [facility] Comment:Desirable Cholestero l: less than 200 mg/dLBorderline High Cholesterol: 200-239 mg/dLHigh Cholesterol: greater than 239 mg/dL LDL Cholesterol Calculated 106(H) <100 mg/dL [facility] Comment:Desirable LDL: less than 100 mg/dLNear Optimal/Above Optimal LDL: 110- 129 mg/dLBorderline High LDL: 130-159 mg/dLHigh LDL: 160-189 mg/dLVery High LDL: greater than or equal to 190 mg/dL HDL Cholesterol 36(L) >40 mg/dL [facility] Comment:Desirable HDL: great er than 40 mg/dL Note: This HDL assay may give artificially low results in patients with liver disease. Blood Venous blood specimen / Unknown 11/09/2023 9:17 AM EDT 11/09/2023 2:39 PM EDT Sam Coreas MD LAB BLOOD ORDERABL ES Final Result Performing Organization Address [facility] Co de Phone Number [facility] [address] [place] [phone] * Hepatitis C Antibody with Reflex to HCV, RNA, Quantitative, Real-Time PCR (09/14/2023 9:48 AM EDT) Hepatitis C Antibody Nonreactive Nonreactive [facility] Comment:Antibodies to HCV no t detected; does not exclude early acuteHCV infection. Blood Venous blood specimen / Unknown 09/14/2023 9:48 AM EDT 09/14/2023 2:14 PM EDT us Sam Coreas MD LAB BLOOD ORDERABL ES Final Result Performing Organization Address City/[facility]/ZIP Co de Phone Number [facility] [address] [place] [phone] from Last 3 Months or Most Recently Relevant to Health Maintenance Insurance # 1 [place] [address] [facility] Care Teams Etymology Teacher Relationship Specialty Start Date End Date Sam Bacon MD [address] [place] [phone] PCP - General Internal Medicine 09/14/23
--- OUTSIDE RECORDS SUMMARY | 2024-08-02 11:19 | XMS_ITS | Encounter Summary ---
Author Organization [employer] Address [address] [facility] [address] [place] [address] Care Team Providers Care Public Works Laborer Name Role Phone Sam Bacon MD Primary Care Prov ider Encounter Details Date Type Department Care Team (Latest Contact Info) Description 08/02/2024 Travel Social History Tobacco Use Types Packs/Day [...] AM EDT Office Visit [facility]ULT [facility] [address] [place] [address] Adolph Cummings documented as of this encounter Visit Diagnoses Not on filedocumented in this encounter Additional Health Concerns Assessment Noted Time PHQ-9 Depression Total Score: 11 024 9:07 AM EDT documented as of this encounter Care Teams Public Works Laborer Relationship Specialty Start Date End Date Sam Bacon MD [address] [place] [address] PCP - General Internal Medicine 09/14/23 documented as of this encounter
--- OUTSIDE RECORDS SUMMARY | 2024-08-02 11:19 | XMS_ITS | Clinical Summary ---
Author Organization [facility] Address [address] [place] [address] Care Team Providers Care [employer] Open [employer] Administrator Name Role Phone Unavailable Primary Care Provider Unavailabl e Source Comments PLEASE NOTE, if this patient is a minor, it may be UNLAWFUL to discuss sensitive information that is contained in these records (such as FAMILY PLANNING, MENTAL HEALTH or SUBSTANCE ABUSE) with the minor patient's parent or other person without the patient's specific authorization.[facility] Allergies Active Allergy Reactions Criticality Noted Date Comments Shrimp Swelling 03/15/2017 All sea food Medications EPINEPHrine (EPIPEN) 0.3 mg/0.3 mL injectionIndicatio ns:Seafood allergy Inject 0.3 mL into the muscle as needed for anaphylaxis 2 Each 03/15/20 17 Active atorvastatin (LIPITOR) 20 mg tabletIndications: Mixed hyperlipidemia Take 1 Tab by mouth every evening 30 Tab 5 03/17/20 17 Active blood-glucose meter (ACCU-CHEK SESAR PLUS METER) monitoring kitIndications:Typ e 2 diabetes mellitus with complication, without long-term current use of insulin ([facility]) Test blood sugars TID w/meals DX: E11.65 accu chek sesar plus glucometer 1 Each 07/13/19 18 Active clotrimazole (LOTRIMIN) 1 % creamIndications:B alanitis Apply topically 2 (two) times daily 15 g 2 08/10/19 18 Active insulin syringe-needle U-100 0.3 mL 31 gauge x 5/16 Use within insulin administration QID. E11.65 200 Syringe 11 10/07/19 18 Active blood sugar diagnostic (ACCU-CHEK SESAR PLUS TEST STRP) stripsIndications: Type 2 diabetes mellitus with diabetic polyneuropathy, with long-term current use of insulin ([facility]) Test blood sugars TID w/meals DX: E11.65 Accu-chek sesar plus test stripes 100 Each 11 11/29/19 18 Active lancets (ACCU-CHEK FASTCLIX)Indicatio ns:Type 2 diabetes mellitus with diabetic polyneuropathy, with long-term current use of insulin ([facility]) Test blood sugars TID w/meals DX: E11.65 accu chek fastclix lancets 100 Each 11 11/29/19 18 Active metFORMIN (GLUCOPHAGE) 1,000 mg tabletIndications: Type 2 diabetes mellitus with diabetic polyneuropathy, with long-term current use of insulin ([facility]) Take 1 Tab by mouth 2 (two) times daily with a meal 60 Tab 5 11/29/19 18 Active dapagliflozin 5 mg tabIndications:Typ e 2 diabetes mellitus with diabetic polyneuropathy, with long-term current use of insulin ([facility]) Take 5 mg by mouth once daily 30 Tab 5 11/29/19 18 Active gabapentin (NEURONTIN) 600 mg tabletIndications: Type 2 diabetes mellitus with diabetic polyneuropathy, with long-term current use of insulin ([facility]) Take 1 Tab by mouth once daily 30 Tab 5 11/29/19 18 Active metoprolol tartrate (LOPRESSOR) 50 mg tabletIndications: Essential hypertension, benign Take 1 Tab by mouth 2 (two) times daily 60 Tab 5 11/29/19 18 Active benzonatate (TESSALON) 100 mg capsuleIndications :Viral URI with cough Take 1 Cap by mouth 3 (three) times daily as needed for cough 30 Cap 11/29/19 18 Active insulin glargine (LANTUS U-100 INSULIN) 100 unit/mL injectionIndicatio ns:Type 2 diabetes mellitus with diabetic polyneuropathy, with long-term current use of insulin ([facility]) Inject 55 Units into the skin once daily 10 mL 5 11/29/19 18 Active blood-glucose meter (FREESTYLE LITE METER) monitoring kit as needed for blood glucose monitoring Test blood sugars TID w/meals DX: E11.65 FREESTYLE LITE glucometer 1 Each 12/05/19 18 Active blood sugar diagnostic (FREESTYLE LITE STRIPS) strips 1 Strip 3 (three) times daily Test blood sugars TID w/meals DX: E11.65 FREESTYLE LITE test stripes 100 Each 11 12/05/19 18 Active lancets (FREESTYLE LANCETS) 28 gauge 3 (three) times daily Test blood sugars TID w/meals DX: E11.65 FREESTYLE lancets 100 Each 11 12/05/19 18 Active insulin syringe-needle U-100 1 mL 31 gauge x 5/16 Inject insulin QID E11.65 200 Syringe 01/25/20 18 Active NOVOLOG U-100 INSULIN ASPART 100 unit/mL injectionIndicatio ns:Type 2 diabetes mellitus with diabetic polyneuropathy, with long-term current use of insulin ([facility]) INJECT UNDER THE SKIN THREE TIMES DAILY WITH MEALS,BS 70-119 GIVE 2U,120-169 4U,170-219 6U,220-269 8U,270-319 10U,320-369 12U,>370 14U 10 mL 07/25/19 19 Active LANTUS U-100 INSULIN 100 unit/mL injection INJECT 50 UNITS UNDER THE SKIN ONCE DAILY 10 mL 07/30/19 19 Active losartan-hydrochlo rothiazide (HYZAAR) 100-12.5 mg per tabletIndications: Essential hypertension, benign TAKE 1 TABLET BY MOUTH EVERY DAY 30 Tab 08/01/19 19 Active amLODIPine (NORVASC) 5 mg tabletIndications: Essential hypertension, benign TAKE 1 TABLET BY MOUTH EVERY DAY 30 Tab 08/01/19 19 Active Active Problems Problem Noted Date Diagnosed Date Fall 03/21/2017 Overview (03/21/2017): 03/17/17 [facility] Xray cervical spine WNL, lumbar spine WNL, pelvis WNL Type 2 diabetes mellitus wit h complication, without long-term current use of insulin ([facility]) 03/17/2017 Uncircumcised male 03/17/2017 Chronic left-sided low back pain 03/17/2017 Overview (03/17/2017): Xray 03/17/15 in MD shows lumbar spasm, L3-L4 and L4-L5 DDD with secondary spondylosis at the L3-L4 level MRI lumbar spine 06/30/15 shows early degenerative changes at L4-L55 with decreased signal intesnsity and posterior bulging of annulus fibrosis, no disc extrusions or protrusions are detected. L1 vertebral body hemangioma. Cervicalgia 03/17/2017 Hypokalemia 03/17/2017 Right shoulder pain 03/17/2017 Overview (03/17/2017): Xrau 03/17/15 in MD shows right glenoid degenerative subarticular cyst vs screw tracts, Chest pain 03/17/2017 Overview (03/17/2017): 03/28/16 Treadmill stress test in MD clinically positive for ischemia. SPECT study shows normal myocardial perfusion, normal LV EF Seafood allergy 03/15/2017 Essential hypertension, benign 01/05/2017 Immunizations Name Administration Dates Next Due Flu, Preservative Free 05/17/2017 Social History Tobacco Use Types Packs/Day Years Used Date Smoking Tobacco: Former Smokeless Tobacco: Never Tobacco Cessation:Counseling Given: No Alcohol Use Standard Drinks/Week Comments No 0 (1 standard drink = 0.6 oz pur e alcohol) Social Connections Answer Date Recorded Social Connections and Isolation 0 02/24/2019 Financial Resource Strain Answer Date R ecorded Financial Resource Strain 0 2018 Stress Answer Date Recorded Stress 0 02/24/2019 Physical Activity Answer Date Recorded Physical Activity 0 02/24/2019 Food Insecurity Answer Date Recorded Food 0 02/24/2019 Transportation Needs Answer Date Record ed Transportation 0 02/24/2019 Housing Stability Answer Date Recorded Housing 0 02/24/2019 Safety and Environment Answer Date Oscar rded Safety 0 02/24/2019 Utilities Answer Date Recorded Utilities 0 02/24/2019 Employment Answer Date Recorded Employment 0 02/24/2019 Sex and Gender Information Value Date Recorded Sex Assigned at Male 05/17/2017 1:20 PM PST Legal Sex Male 9:10 AM PDT Gender Identity Male 05/17/2017 1:20 PM PST Sexual Orientation Straight 05/17/2017 1: 20 PM PST Last Filed Vital Signs Vital Sign Reading Time Taken Comments Blood Pressure 138/80 11/28/2017 8:53 AM EDT Pulse 78 11/28/2017 8:53 AM EDT Temperature 36.8 ??C (98.2 ??F) 11/28/2017 8:53 AM ED T Respiratory Rate 16 11/28/2017 8:53 AM EDT Oxygen Saturation - - Inhaled Oxygen Concentration - - Weight 100.7 kg (222 lb) 11/29/2017 11:16 AM EDT Height 170.2 cm (5' 7 ) 11/29/2017 11:16 AM EDT Body Mass Index 34.77 11/29/2017 11:16 AM EDT Plan of Treatment Not on file Insurance [facility] [place] Member Subscriber Plan / Payer (Ef fective 2017-Present) Name:Juani Figueroa Relation to Subscriber:Self Name:Juani Figueroa Payer ID:[id number] Group ID:Not on file Type:Pat Address: [facility] [address] [id number]
--- OUTSIDE RECORDS SUMMARY | 2024-08-02 11:19 | XMS_ITS | Encounter Summary ---
Author Organization [employer] Address [address] [facility] [address] [place] [address] Care Team Providers Care Floor Grinder Name Role Phone Sam Bacon MD Primary Care Prov ider Reason for Visit * Reason Comments Dentures Wax try in of upper and lower partials Encounter Details Date Type Department Care Team ([facility] st Contact Info) Description 07/30/2024 1:00 PM EST Office Visit [facility] ADULT [facility] [address] [place] [address] Marco Steele [address] [place] [address] Social History Tobacco Use Types Packs/Day Years [...] AM EST documented as of this encounter Progress Notes * Marco Steele - 07/30/2024 1:00 PM EST Dental procedures in this visit [id number] - WAX TRY IN Patient ID: Juani Ornelas is a 49 y.o. male. Time Out: Date: 07/30/2024 Location: [facility] Tooth: Maxilla and Mandible Procedure: Dentures Verified the above with patient, dental assistant teacher, and provider. Confirmed via patient's chart, intraorally and by radiographs. Securities Vault Supervisor: not applicable Wax try in done by Dr. Marco Steele for upper and lower acrylic partial denture Risk, benefits, and alternatives discussed with the patient. CONSENT FORM INITIALED & SIGNED BY THE PATIENT AND COUNTER SIGNED BY DR. Marco Steele Medical history: Reviewed in EHR Vitals: There were no vitals taken for this visit. Allergies: Reviewed in EHR Medications: Reviewed in EHR - Upper and lower partial denture try-in done. - Esthetics and phonetics approved by patient and provider. - Occlusion confirmed using articulating paper. - Case to be sent to: [facility] for Final fabrication Patient accepts all aspects of prosthesis and consents to proceed with final processing. Patient released in stable condition. Patient satisfied. NV: Insertion Provider: Dr. Marco Steele Soaping Department Supervisor: Pao Hayes Supervising Dentist: Dr. Boland * Thi Boland DDS - 07/30/2024 1:00 PM EST I have reviewed the documentation and dental procedures completed by the rendering provider, Marco Steele DDS, and approve their chart entries for this visit. JONNY Angulo DDS documented in this encounter Plan of Treatment Upcoming Encounters Date Type Department Care Team (Late st Contact Info) Description 10/18/2024 8:00 AM EDT Office Visit [facility] ADULT [facility] [address] [place] [address] Adolph Cummings Scheduled Orders Name Type Priority Associated Diagnoses Orde r Schedule DENTAL LAB DENTURES AND PARTIALS Dental Routine Ordered: 025 documented as of this encounter Procedures Procedure Name Priority Date/Time Associated Diagnosis Comments WAX TRY IN Routine 07/30/2024 1:00 PM EST documented in this encounter Visit Diagnoses Not on filedocumented in this encounter Additional Health Concerns Assessment Noted Time PHQ-9 Depression Total Score: 11 024 9:07 AM EDT documented as of this encounter Care Teams Floor Grinder Relationship Specialty Start Date End Date Sam Bacon MD [address] [place] [address] PCP - General Internal Medicine 09/14/23 documented as of this encounter
--- OUTSIDE RECORDS SUMMARY | 2024-08-02 11:20 | XMS_ITS | Encounter Summary ---
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 (CMS/HCC) (Primary Dx); Secondary hypertension; Hyperlipidemia, mixed Social History Tobacco Use Types Packs/Day Years Used Date Smoking Tobacco: Former Cigarettes 0 10/24/2001 - 10/24/2005 Smokeless Tobacco: Never Tobacco Cessation:Counseling Given: Not Answered Alcohol Use Standard Drinks/Week Comments No 0 (1 standard drink = 0.6 oz pur e alcohol) Sex and Gender Information Value Date Recorded Sex Assigned at Male 06/17/2024 1:31 PM EST Gender Identity Male 06/17/2024 1:31 PM EST Sexual Orientation Not on file Job Start Date Occupation Industry Not on file Not on file Not on file documented as of this encounter Last Filed Vital Signs Vital Sign Reading Time Taken Comments Blood Pressure 153/97 07/24/2024 9:30 AM EST Pulse 94 07/24/2024 9:30 AM EST Temperature 36.8 ??C (98.2 ??F) 07/24/2024 9:27 AM ES T Respiratory Rate - - Oxygen Saturation 99% 07/24/2024 9:27 AM EST Inhaled Oxygen Concentration - - Weight 86.6 kg (191 lb) 07/24/2024 9:27 AM EST Height 170.2 cm (5' 7 ) 07/24/2024 9:27 AM EST Body Mass Index 29.91 07/24/2024 9:27 AM EST documented in this encounter Ordered Prescriptions Prescription Sig Dispensed Refills Start Date End Da te flash glucose sensor (FreeStyle Oj 2 Sensor) kit Box = Kit = EA1 Device by Does not apply route every 14 days. 2 each 11 07/24/2024 insulin aspart (NovoLOG Flexpen U-100 Insulin) 100 unit/mL (3 mL) injection pen INJECT UNDER THE SKIN THREE TIMES DAILY BEFORE MEALS PER SCALE: 70-119:12U, 120-169:17U, 170-219:20U, 220-269:22U, 270-319:23U, 320-369:24U, >370:25U AND CALL MD, plus 2 more units at dinner 45 mL 11 07/24/2024 dapagliflozin propanediol (Farxiga) 10 mg tablet Take 1 tablet (10 mg total) by mouth 1 (one) time each day. 90 each 3 07/24/2024 semaglutide (Ozempic) 1 mg/dose (4 mg/3 mL) injection pen Inject 1 mg into the skin every 7 days. 3 mL 11 07/24/2024 insulin glargine (Lantus Solostar U-100 Insulin) 100 unit/mL (3 mL) injection pen INJECT 60 UNITS TWICE A DAY 45 mL 5 07/24/2024 documented in this encounter Progress Notes * Breana Bowman MA - 07/24/2024 9:30 AM EST Bs 107 * CHINA Vera - 07/24/2024 9:30 AM EST CHIEF COMPLAINT: Endocrine (F/u dm) IDENTIFIER: Juani Wasserman is a 49 y.o. old male. HPI: Patient presents in the office for diabetes follow-up. Past medical history of type 2 diabetes, obesity, microalbuminuria, hypertension, hyperlipidemia, H. pylori infection, GERD, depression, and obesity. Type 2 diabetes: HempGlobin A1c: Lab Results Component Value Date HGBA1C 9.6 (A) 03/08/2024 CGM data reviewed Average 137 Averages 101, 107, 132, 138, 145, 173, 147, and 111 Time below 70 is 5% Time in range 78% Time above is 15% Time above 250 is 2% Current medications: Lantus 72 units twice a day Ozempic 1 mg Farxiga 10 mg NovoLog 3 times a day with sliding scale History of gastric sleeve History of diabetic with renal manifestation. He has history of microalbuminuria. He is on ARB at this time Up-to-date with eye exam Follows with Dr. Dao podiatry Hypertension: Blood pressure elevated 153/97. Admits he did not take his blood pressure medication today Hyperlipidemia: On Crestor 20 mg Obesity: Wt Readings from Last 3 Encounters: 07/24/24 86.6 kg (191 lb) 06/11/24 88.5 kg (195 lb) 06/06/24 91.3 kg (201 lb 3.2 oz) ROS: GENERAL: No malaise, significant weight loss or fever HEENT: No changes in hearing or vision, nose bleeds or other nasal problems RESPIRATORY: No cough, wheezing or shortness of breath CARDIOVASCULAR: No chest pain, leg swelling or palpitations GI: No abdominal discomfort, blood in stools or black stools ENDOCRINE: See HPI MUSCULOSKELETAL: No joint pain or swelling, back pain, or muscle pain. NEURO: No persistent headache, syncope, seizures, weakness or numbness PAST MEDICAL HISTORY: Patient Active Problem List Diagnosis Date Noted Class 1 obesity due to excess calories with serious comorbidity and body mass index (BMI) of 31.0 to 31.9 in adult 04/22/2024 Palpitations 03/20/2024 Snoring 03/20/2024 Bilateral carpal tunnel syndrome 09/20/2022 Cubital tunnel syndrome 09/20/2022 H. 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) 11/28/2017 Depression 10/24/2017 Balanitis 10/06/2017 Cervicalgia 10/06/2017 Hyperlipidemia, mixed 10/06/2017 Hypertension 10/06/2017 Hypokalemia 10/06/2017 Right shoulder pain 10/06/2017 Vertebral body hemangioma 10/06/2017 Chronic low back pain 03/17/2017 SOCIAL HISTORY: Social History Tobacco Use Smoking status: Former Current packs/day: 0.00 Types: Cigarettes Start date: 10/24/2001 Quit date: 10/24/2005 Years since quittin.7 Smokeless tobacco: Never Substance Use Topics Alcohol use: No FAMILY HISTORY: Family Status Relation Name Status Mother Alive Father Sister Alive MGF (Not Specified) No partnership data on file Family History Problem Relation Name Age of Onset Diabetes Mother 40.00 breast ca 40s Heart attack Father 40.00 Other (Other: Other) Sister valve disease, 2 x with RA Prostate cancer Maternal Grandfather 59.00 ACTIVE MEDICATIONS: Outpatient Medications Marked as Taking for the 07/24/24 encounter (Office Visit) with CHINA Vera Medication Sig Dispense Refill amLODIPine (NORVASC) 5 mg tablet - Route: Take 1 Tablet by mouth daily. - Oral aspirin 81 mg EC tablet Take 1 tablet (81 mg total) by mouth 1 (one) time each day. blood sugar diagnostic (FreeStyle Lite Strips) test strip USE TO CHECK BS 3 TIMES A DAY blood-glucose meter kit 1 Device by Does not apply route daily. buPROPion XL (WELLBUTRIN XL) 300 mg 24 hr tablet Route: Take 300 mg by mouth every morning. - Oral chlorthalidone (HYGROTON) 25 mg tablet Take 1 tablet (25 mg total) by mouth 1 (one) time each day. dapagliflozin propanediol (Farxiga) 10 mg tablet Take 1 tablet (10 mg total) by mouth 1 (one) time each day. 90 each 3 EPINEPHrine (EpiPen 2-Billy) 0.3 mg/0.3 mL injection Inject as directed. flash glucose scanning reader (FreeStyle Oj 2 [place]) [facility] [place] 1 Device by Does not apply route daily. flash glucose sensor (FreeStyle Oj 2 Sensor) kit Box = Kit = EA1 Device by Does not apply route every 14 days. 2 each 11 hydrALAZINE (APRESOLINE) 50 mg tablet TAKE 1 TABLET BY MOUTH 3 TIMES DAILY. 90 tablet 1 insulin aspart (NovoLOG Flexpen U-100 Insulin) 100 unit/mL (3 mL) injection pen INJECT UNDER THE SKIN THREE TIMES DAILY BEFORE MEALS PER SCALE: 70-119:12U, 120- 169:17U, 170-219:20U, 220-269:22U, 270-319:23U, 320-369:24U, >370:25U AND CALL MD, plus 2 more units at dinner 45 mL 11 insulin glargine (Lantus Solostar U-100 Insulin) 100 unit/mL (3 mL) injection pen INJECT 60 UNITS TWICE A DAY 45 mL 5 insulin syringe-needle U-100 1 mL 29 gauge x 1/2 syringe Use to administer Insulin 4-5 injections daily irbesartan (AVAPRO) 300 mg tablet Take 1 tablet (300 mg total) by mouth 1 (one) time each day. lancets lancets USE TO CHECK BS 3 TIMES A DAY lithium 300 mg tablet Route: Take 2 Tabs by mouth 2 times daily. - metoprolol tartrate (LOPRESSOR) 100 mg tablet Take 1 tablet (100 mg total) by mouth 2 (two) times aday. OLANZapine (ZyPREXA) 2.5 mg tablet Take 1 tablet (2.5 mg total) by mouth 1 (one) time each day. omeprazole (PriLOSEC) [address] capsule TAKE 1 CAPSULE BY MOUTH DAILY FOR 360 DAYS. pen needle, diabetic 32 gauge x 5/32 needle USE 5 TIMES A DAY WITH INSULIN polyethylene glycol (MIRALAX) 17 gram packet Take 1 Packet by mouth daily as needed for Constipation for up to 14 days. pregabalin (LYRICA) 150 mg capsule Route: Take 1 capsule by mouth 2 times daily for 180 days. - Oral rosuvastatin (CRESTOR) 40 mg tablet Take 1 tablet (40 mg total) by mouth 1 (one) time each day. semaglutide (Ozempic) 1 mg/dose (4 mg/3 mL) injection pen Inject 1 mg into the skin every 7 days. 3mL 11 spironolactone (ALDACTONE) 50 mg tablet Take 1 tablet (50 mg total) by mouth 2 (two) times a day. temazepam (RESTORIL) 15 mg capsule Route: Take by mouth at bedtime. - Oral traZODone (DESYREL) 50 mg tablet Route: Take 1 Tablet by mouth at bedtime. - Oral triamcinolone (KENALOG) 0.1 % cream wheat dextrin (BENEFIBER SUGAR FREE, DEXTRIN, ORAL) Take 4 g by mouth daily. zolpidem (AMBIEN) 10 mg tablet Take 1 Tablet by mouth at bedtime. [DISCONTINUED] dapagliflozin propanediol (Farxiga) 10 mg tablet Take 1 tablet (10 mg total) by mouth 1 (one) time each day. [DISCONTINUED] flash glucose sensor (FreeStyle Oj 2 Sensor) kit 1 Device by Does not apply routeevery 14 days. [DISCONTINUED] insulin aspart (NovoLOG Flexpen U-100 Insulin) 100 unit/mL (3 mL) injection pen INJECT UNDER THE SKIN THREE TIMES DAILY BEFORE MEALS PER SCALE: 70-119:12U, 120-169:17U, 170-219:20U, 220-269:22U, 270-319:23U, 320-369:24U, >370:25U AND CALL MD, plus 2 more units at dinner [DISCONTINUED] insulin glargine (Lantus Solostar U-100 Insulin) 100 unit/mL (3 mL) injection pen INJECT 72 UNITS TWICE A DAY [DISCONTINUED] semaglutide (Ozempic) 1 mg/dose (4 mg/3 mL) injection pen Inject 1 mg into the skin every 7 days. ALLERGIES: Shellfish containing products and Shrimp PHYSICAL EXAM: Blood pressure (!) 153/97, pulse 94, temperature 36.8 ??C (98.2 ??F), temperature source Temporal, height 1.702 m (67 ), weight 86.6 kg (191 lb), SpO2 99%. Body mass index is 29.91 kg/m??. BMI is greater than 25.0 (above the normal range) - see Plan APPEARANCE: Alert and in no acute distress HEART: RRR with normal S1 and S2, no murmurs, no gallops, NECK: no thyroid enlargement, nodules or masses felt. LUNG: clear to auscultation NEURO: Awake, alert and oriented x 3 LABS: Lab Results Component Value Date HGBA1C 9.6 (A) 03/08/2024 CHOL 186 (A) 10/19/2023 LDL 118 (A) 10/19/2023 HDL 48 10/19/2023 TRIG 100 10/19/2023 No results found for: GLUCOSE No results found for: TSH IMAGING: IMPRESSION: 1. 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 Secondary hypertension 3. Hyperlipidemia, mixed PLAN: Patient presents to the office for diabetes follow-up 1. Diabetes: Due for lab work CGM data demonstrates frequent hypoglycemia Lantus cut back to 60 units twice a day Hypoglycemia treatment plan reviewed If he continues to have hypoglycemia he is told to reach out to us immediately so we can continue decreasing insulin Continue with the rest of medication Notifications discussed 2. Hypertension: Blood pressure elevated. He is told to take medication when he goes home. Follow-up with primary care for blood pressure check 3. Hyperlipidemia: Labs ordered All questions and concerns were addressed. Patient understands and agrees with this treatment plan.Patient was reminded to call or return to the office if any new or existing problems arise This document was made using voice recognition software. 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 Dispense: 3 mL; Refill: 11 - dapagliflozin propanediol (Farxiga) 10 mg tablet; Take 1 tablet (10 mg total) by mouth 1 (one) time each day. Dispense: 90 each; Refill: 3 - insulin aspart (NovoLOG Flexpen U-100 Insulin) 100 unit/mL (3 mL) injection pen; INJECT UNDER THESKIN THREE TIMES DAILY BEFORE MEALS PER SCALE: 70-119:12U, 120-169:17U, 170-219:20U, 220-269:22U, 270-319:23U, 320-369:24U, >370:25U AND CALL MD, plus 2 more units at dinner Dispense: 45 mL; Refill: 11 - flash glucose sensor (FreeStyle Oj 2 Sensor) kit; Box = Kit = EA1 Device by Does not apply route every 14 days. Dispense: 2 each; Refill: 11 CHINA Vera on 07/24/2024 at 10:55 AM EST documented in this encounter Plan of Treatment Upcoming Encounters Date Type Department Care Team (Late st Contact Info) Description 08/12/2024 8:50 AM EST Office Visit [facility] Cardiology [facility] [address] [place] [address] Dr [address] [place] [address] Moiz Damon MD [address] [place] [address] [address] [place] [address] 09/24/2024 9:15 AM EDT Office Visit Bariatric Surgery [facility] [address] [phone] Lizz Braden PA [address] [address] 10/23/2024 10:45 AM EDT Office Visit Endocrinology [address] [address] Lily Sepulveda PA [address] [place] [address] documented as of this encounter Results * (ABNORMAL) Microalbumin creatinine urine ratio (07/24/2024 10:34 AM EST) Creatinine, Urine 306.0 mg/dL LAB CHEMISTRY METHOD 07/24/2024 3:43 PM EST [facility] Microalb, Ur 115.0(H) 0.0 - 29.0 mg/L LAB CHEMISTRY METHOD 07/24/2024 3:43 PM [facility] Microalb/Crea t Ratio 38(H) <30 mg/g creat LAB CHEMISTRY METHOD 07/24/2024 3:43 PM [facility] Urine Urine specimen from urethra / Unknown Non-blood Collection / Unknown 07/24/2024 10:34 AM EST 07/24/2024 10:34 AM EST Lily ATKINSON LAB URINE ORDERABLE S [facility] [address] [place] [address], * Lipid panel with reflex to direct LDL (07/24/2024 10:34 AM EST) Cholesterol 77 0 - 200 mg/dL LAB CHEMISTRY METHOD 07/24/2024 3:16 PM [facility] Triglycerides 76 0 - 150 mg/dL LAB CHEMISTRY METHOD 07/24/2024 3:16 PM [facility] HDL 41 >=40 mg/dL LAB CHEMISTRY METHOD 07/24/2024 3:16 PM [facility] LDL Calculated 21 0 - 100 mg/dL LAB CHEMISTRY METHOD 07/24/2024 3:16 PM [facility] VLDL Cholesterol José Antonio 15.2 mg/dL LAB CHEMISTRY METHOD 07/24/2024 3:16 PM [facility] Non HDL Chol. (LDL+VLDL) 36 <145 mg/dL LAB CHEMISTRY METHOD 07/24/2024 3:16 PM [facility] Chol/HDL Ratio 1.9 0.0 - 4.4 LAB CHEMISTRY METHOD 07/24/2024 3:16 PM [facility] Blood Venous blood specimen / Unknown Venipuncture / Unknown 07/24/2024 10:34 AM EST 07/24/2024 10:34 AM EST Lily ATKINSON LAB BLOOD ORDERABLE S [facility] [address] [place] [address], [place] [phone] * (ABNORMAL) Hemoglobin A1c (07/24/2024 10:34 AM EST) Pathologist [facility] Hemoglobin A1C 6.8(H) <6.5 % LAB CHEMISTRY METHOD 07/24/2024 2:15 PM EST [facility] Mean Bld Glu Estim. 148 mg/dL LAB CHEMISTRY METHOD 07/24/2024 2:15 PM [facility] Blood Venous blood specimen / Unknown Venipuncture / Unknown 07/24/2024 10:34 AM EST 07/24/2024 10:34 AM EST Lliy ATKINSON LAB BLOOD ORDERABLE S [facility] [address] [place] [address], * Basic metabolic panel (07/24/2024 10:34 AM EST) [facility] Sodium 138 133 - 145 mmol/L LAB CHEMISTRY METHOD 07/24/2024 3:15 PM [facility] Potassium 3.7 3.5 - 5.5 mmol/L LAB CHEMISTRY METHOD 07/24/2024 3:15 PM [facility] Chloride 105 96 - 110 mmol/L LAB CHEMISTRY METHOD 07/24/2024 3:15 PM [facility] CO2 30 21 - 32 mmol/L LAB CHEMISTRY METHOD 07/24/2024 3:15 PM [facility] Anion Gap 3 3 - 11 LAB CHEMISTRY METHOD 07/24/2024 3:15 PM [facility] Glucose 96 70 - 100 mg/dL LAB CHEMISTRY METHOD 07/24/2024 3:15 PM [facility] BUN 17 5 - 25 mg/dL LAB CHEMISTRY METHOD 07/24/2024 3:15 PM [facility] Creatinine 0.79 0.70 - 1.30 mg/dL LAB CHEMISTRY METHOD 07/24/2024 3:15 PM [facility] eGFR 109 >=60 mL/min/1. 73m2 LAB CHEMISTRY METHOD 07/24/2024 3:15 PM EST [facility] Comment:Calculation based on the??Chronic Kidney Disease Epidemiology Collaboration (CKD-EPI) equation refit??without adjustment for race. 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 Reorder 04/09/2024 07/24/2024 dapagliflozin propanediol (Farxiga) 10 mg tablet Take 1 tablet (10 mg total) by mouth 1 (one) time each day. Reorder 01/07/2024 07/24/2024 insulin aspart (NovoLOG Flexpen U-100 Insulin) 100 unit/mL (3 mL) injection pen INJECT UNDER THE SKIN THREE TIMES DAILY BEFORE MEALS PER SCALE: 70-119:12U, 120-169:17U, 170-219:20U, 220-269:22U, 270-319:23U, 320-369:24U, >370:25U AND CALL MD, plus 2 more units at dinner Reorder 12/06/2023 07/24/2024 flash glucose sensor (FreeStyle Oj 2 Sensor) kit 1 Device by Does not apply route every 14 days. Reorder 11/09/2023 07/24/2024 documented as of this encounter Care Teams Population Health Coach Relationship Specialty Start Date End Date Sam Bacon [address] [place], [place] PCP - General 02/21/24 documented as of this encounter
--- OUTSIDE RECORDS SUMMARY | 2024-08-02 11:20 | XMS_ITS | Clinical Summary ---
Author Organization [address] [place] [address] Address [address] [place] [address] Phone Care Team Providers Care Lathe Set Up Operator Name Role Phone Sam Bacon Primary Care Provide r Allergies Active Allergy Reactions Criticality Noted Date Comments Shellfish Containing Products Anaphylaxis High 10/06 Shrimp Other Low 01/19/2023 Medications Medication Sig Dispensed Refills Start Date End Date Status aspirin 81 mg EC tablet Take 1 tablet (81 mg total) by mouth 1 (one) time each day. 4 Active irbesartan (AVAPRO) 300 mg tablet Take 1 tablet (300 mg total) by mouth 1 (one) time each day. 4 Active OLANZapine (ZyPREXA) 2.5 mg tablet Take 1 tablet (2.5 mg total) by mouth 1 (one) time each day. 4 Active zolpidem (AMBIEN) 10 mg tablet Take 1 Tablet by mouth at bedtime. 4 Active triamcinolone (KENALOG) 0.1 % cream 4 Active spironolactone (ALDACTONE) 50 mg tablet Take 1 tablet (50 mg total) by mouth 2 (two) times a day. 4 Active rosuvastatin (CRESTOR) 40 mg tablet Take 1 tablet (40 mg total) by mouth 1 (one) time each day. 4 Active chlorthalidone (HYGROTON) 25 mg tablet Take 1 tablet (25 mg total) by mouth 1 (one) time each day. 4 Active lancets lancets USE TO CHECK BS 3 TIMES A DAY 4 Active wheat dextrin (BENEFIBER SUGAR FREE, DEXTRIN, ORAL) Take 4 g by mouth daily. 4 Active polyethylene glycol (MIRALAX) 17 gram packet Take 1 Packet by mouth daily as needed for Constipation for up to 14 days. 4 Active pen needle, diabetic 32 gauge x 5/32 needle USE 5 TIMES A DAY WITH INSULIN 4 Active omeprazole (PriLOSEC) [address] capsule TAKE 1 CAPSULE BY MOUTH DAILY FOR 360 DAYS. 4 09/14/19 25 Active blood sugar diagnostic (FreeStyle Lite Strips) test strip USE TO CHECK BS 3 TIMES A DAY 4 Active amLODIPine (NORVASC) 5 mg tablet - Route: Take 1 Tablet by mouth daily. - Oral 3 Active metoprolol tartrate (LOPRESSOR) 100 mg tablet Take 1 tablet (100 mg total) by mouth 2 (two) times a day. 3 Active flash glucose scanning reader (FreeStyle Oj 2 [place]) misc 1 Device by Does not apply route daily. 3 Active blood-glucose meter kit 1 Device by Does not apply route daily. 3 Active traZODone (DESYREL) 50 mg tablet Route: Take 1 Tablet by mouth at bedtime. - Oral Active insulin syringe-needle U-100 1 mL 29 gauge x 1/2 syringe Use to administer Insulin 4-5 injections daily 2 Active pregabalin (LYRICA) 150 mg capsule Route: Take 1 capsule by mouth 2 times daily for 180 days. - Oral 1 Active buPROPion XL (WELLBUTRIN XL) 300 mg 24 hr tablet Route: Take 300 mg by mouth every morning. - Oral Active temazepam (RESTORIL) 15 mg capsule Route: Take by mouth at bedtime. - Oral Active EPINEPHrine (EpiPen 2-Billy) 0.3 mg/0.3 mL injection Inject as directed. Active lithium 300 mg tablet Route: Take 2 Tabs by mouth 2 times daily. - Active hydrALAZINE (APRESOLINE) 50 mg tablet TAKE 1 TABLET BY MOUTH 3 TIMES DAILY. 90 tablet 1 5 Active insulin glargine (Lantus Solostar U-100 Insulin) 100 unit/mL (3 mL) injection pen INJECT 60 UNITS TWICE A DAY 45 mL 5 5 Active semaglutide (Ozempic) 1 mg/dose (4 mg/3 mL) injection pen Inject 1 mg into the skin every 7 days. 3 mL 5 Active dapagliflozin propanediol (Farxiga) 10 mg tablet Take 1 tablet (10 mg total) by mouth 1 (one) time each day. 90 each 3 5 Active insulin aspart (NovoLOG Flexpen U-100 Insulin) 100 unit/mL (3 mL) injection pen INJECT UNDER THE SKIN THREE TIMES DAILY BEFORE MEALS PER SCALE: 70-119:12U, 120-169:17U, 170-219:20U, 220-269:22U, 270-319:23U, 320-369:24U, >370:25U AND CALL MD, plus 2 more units at dinner 45 mL 5 Active flash glucose sensor (FreeStyle Oj 2 Sensor) kit Box = Kit = EA1 Device by Does not apply route every 14 days. 2 each 5 Active insulin glargine (Lantus Solostar U-100 Insulin) 100 unit/mL (3 mL) injection pen INJECT 72 UNITS TWICE A DAY 07/24/19 25 Discontinued(Reo rder) semaglutide (Ozempic) 1 mg/dose (4 mg/3 mL) injection pen Inject 1 mg into the skin every 7 days. 4 07/24/19 25 Discontinued(Reo rder) hydrALAZINE (APRESOLINE) 50 mg tablet Take 1 Tablet by mouth 3 times daily. 4 07/08/19 25 Discontinued dapagliflozin propanediol (Farxiga) 10 mg tablet Take 1 tablet (10 mg total) by mouth 1 (one) time each day. 4 07/24/19 25 Discontinued(Reo rder) insulin aspart (NovoLOG Flexpen U-100 Insulin) 100 unit/mL (3 mL) injection pen INJECT UNDER THE SKIN THREE TIMES DAILY BEFORE MEALS PER SCALE: 70-119:12U, 120-169:17U, 170-219:20U, 220-269:22U, 270-319:23U, 320-369:24U, >370:25U AND CALL MD, plus 2 more units at dinner 4 07/24/19 Discontinued(Reo rder) flash glucose sensor (FreeStyle Oj 2 Sensor) kit 1 Device by Does not apply route every 14 days. 4 07/24/19 Discontinued(Reo rder) Active Problems Problem Noted Date Diagnosed Date Class 1 obesity due to exces s calories with serious comorbidity and body mass index (BMI) of 31.0 to 31.9 in adult 04/22/2024 Palpitations 03/20/2024 Overview (04/22/2024): Last Assessment & Plan: The patient has been experiencing episodes of palpitations. We will order a Holter monitor to evaluate for any underlying arrhythmias as a cause of her symptoms. We will also order an echocardiogram to rule out any significant structural heart disease. Snoring 03/20/2024 Overview (04/22/2024): Last Assessment & Plan: The patient has a history of nighttime snoring. He also has a history of resistant hypertension. Therefore, an evaluation for sleep apnea if indicated. Will order a sleep study. Bilateral carpal tunnel syndrome 09/20/2022 Cubital tunnel syndrome 09/20/2022 H. 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 10/08/2020 Positive for macroalbuminuria 07/25/2020 BPH with obstruction/lower urinary tract symptom s 04/03/2019 Chronic pain in testicle 04/03/2019 Erectile dysfunction 04/03/2019 Chest pain 03/26/2018 Overview (04/22/2024): - Possible microvascular disease -Has previously described [...] was hospitalized again in December 2017 at [facility] for chest pain- ruled out with serial cardiac enzymes and again had an unremarkable nremarkable stress test -More recently presented again to [facility] May 2022 with symptoms of atypical [...] reduced systolic function Last Assessment & Plan: The patient came for evaluation due to episodes of chest pain. The description of the symptoms is consistent with atypical chest pain. The patient has the following risk factors for coronary artery disease: Hypertension, diabetes, and obesity. Given the patient's age, gender, description of the symptoms, and risk factors for CAD, the patient has an intermediate risk for coronary artery disease. As such, will order a stress test for evaluation of the patient's chest pain. Diabetes mellitus type 2 with neurological manif estations 11/28/2017 Depression 10/24/2017 Balanitis 10/06/2017 Overview (04/22/2024): Uncircumcised. Urology referral Cervicalgia 10/06/2017 Hyperlipidemia, mixed 10/06/2017 Overview (04/22/2024): Last Assessment & Plan: Adding Crestor 20 mg at bedtime for cardiovascular risk reduction Hypertension 10/06/2017 Overview (04/22/2024): Last Assessment & Plan: The patient has a set of hypertension. He is taking multiple antihypertensive medications. He meets criteria for resistant hypertension. As such, I evaluation for secondary causes of hypertension is indicated. He does have a history of nighttime snoring; therefore, we will order a sleep study. Will also order a renal artery duplex to rule out renal artery stenosis as a cause of his resistant hypertension. Will also order laboratory testing to rule out pheochromocytoma. Hypokalemia 10/06/2017 Right shoulder pain 10/06/2017 Overview (04/22/2024): [place]/17/15 [place] shows right glenoid degenerative subarticular cyst vs screw tracts, 03/17/15 ([place]) XR = glenoid degenerative subarticular cyst vs screw tracts Vertebral body hemangioma 10/06/2017 Overview (04/22/2024): MRI - L 1 Chronic low back pain 03/17/2017 Overview (04/22/2024): [place] 03[place]17/15 [place] shows lumbar spasm, L3-L4 and L4-L5 DDD with secondary spondylosis at the L3-L4 level MRI lumbar spine 06/30/15 shows early degenerative changes at L4-L55 with decreased signal intesnsity and posterior bulging of annulus fibrosis, no disc extrusions or protrusions are detected. L1 vertebral body hemangioma. 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 (CMS/HCC) (Primary Dx); Secondary hypertension; Hyperlipidemia, mixed 07/24/2024 Telephone Endocrinology - [place] [address] [place] [address] Lily Sepulveda PA medication clarification 07/10/2024 Telephone [facility] - [facility] [address] [place] [address] Moiz Damon MD No Call No Show (Letter sent.) 06/18/2024 Telephone [facility] Cardiology [facility] [address] [place] [phone] Moiz Damon MD 06/11/2024 7:00 AM EST Ancillary Procedure [facility] - [facility] [address] [place] [id number] Other chest pain 06/06/2024 1:15 PM EST Office Visit Bariatric Surgery - [place] [address] [place] [address] Lizz Braden PA Class 1 obesity due to excess calories with serious comorbidity and body mass index (BMI) of 31.0 to 31.9 in adult (Primary Dx); Bariatric surgery status; Diabetes mellitus type 2 with neurological manifestations (CMS/HCC) from Last 3 Months Immunizations Name Administration Dates Next Due Influenza Quadravalent, MDCK , 0.5ml, preservative free (Flucelvax) 6mo and older 04/14/2020 Influenza trivalent, 0.5mL, preservative free (Fluarix; FluLaval; Fluzone) ages 6mo and older (Afluria) 3 years and older 05/17/2017 Pneumococcal polysaccharide 23 valent (Pneumovax 23) 2yo and older 10/24/2017 Td Tetanus diptheria (Tdvax) 7yo and older 01/29 Surgical History Surgery Date Site/Laterality Comments CARPAL TUNNEL RELEASE 05/2013 Right PROCEDURE: HISTORICAL CARPAL TUNNEL REL SHOULDER SURGERY 12/2012 Right PROCEDURE: HISTORICAL SHOULDER SURGERY CHOLECYSTECTOMY 2007 PROCEDURE: HISTORICAL CHOLECYSTECTOMY Medical History Medical History Date Comments Balanitis 10/06/2017 DX:Balanitis; CO MMENT: Urology referral Cervicalgia 10/06/2017 DX:Cervicalgia Chronic low back pain with l eft-sided sciatica 10/06/2017 DX:Chronic low back pain wit h left-sided sciatica; COMMENT: MRI 06/30/15 early degenerative changes L 4-5 Hyperlipidemia, mixed 10/06/2017 DX:Hyperli pidemia, mixed Hypertension 10/06/2017 DX:Hypertension Hypokalemia 10/06/2017 DX:Hypokalemia Shoulder pain, right 10/06/2017 DX:Shoulder pain, right; COMMENT: 03/17/15 ([place] XR = glenoid degenerative subarticular cyst vs screw tracts Vertebral body hemangioma 10/06/2017 DX:Ivanna tebral body hemangioma; COMMENT: MRI - L 1 Depression 10/24/2017 DX:Depression Diabetes mellitus type 2, uncomplicated (CMS/HCC) 10/06/2017 DX:Diabetes mellitus type 2, uncomplicated (HCC) GERD (gastroesophageal reflu x disease) 01/31/2021 DX:GERD (gastroesophageal re flux disease) Anxiety state DX:Anxiety state Family History Medical History Relation Name Comments Heart attack Father Prostate cancer Maternal Grandfather Diabetes Mother breast ca 40s Other: Other Sister valve disease, 2 x with RA Relation Name Status Comments Father Maternal Grandfather Mother Alive Sister Alive Social History Tobacco Use Types Packs/Day Years [...] file Not on file Not on file Obstetrics History Last Filed Vital Signs Vital Sign Reading [...] Mass Index 29.91 07/24/2024 9:27 AM EST Plan of Treatment Upcoming Encounters Date Type Department Care Team (Late st Contact Info) Description 08/12/2024 8:50 AM EST Office Visit [facility] [address] [place] [address] [address] [place] [address] Moiz Damon MD [address] [place] [address] [address] [place] [address] 09/24/2024 9:15 AM EDT Office Visit Bariatric Surgery - [place] [address] [facility] [address] [place] [address] Lizz Braden PA [address] [place] [address] 10/23/2024 10:45 AM EDT Office Visit [facility] [address] [place] [address] Lily Sepulveda PA [address] [place] [address] Health Maintenance Due Date Last Done Comments Diabetes: Annual Foot Exam 1985 Hepatitis B Vaccines (1 of 3 - 19+ 3-dose series) 1994 Colorectal Cancer Screening: Colonoscopy 06/11/2022 Medicare Annual Wellness Visit 06/11/2022 Social Influencers of Health Screening 06/11/2022 COVID-19 Vaccine ( season) 2024 04/01/2022, 06/10/2021 Influenza Vaccine (#1) 2024 , 04/14/2020, 05/17/2017 Depression Screening 09/13/2024 09/14/2023 Diabetes: Annual Retina Eye Exam 01/14/2025 01/15/2024 Diabetes: Blood Sugar Control Test (HGBA1C) 01/21/2025 07/24/2024, 07/18/2024, 03/08/2024, Additional history exists Diabetes: Annual Urine Albumin-Creatinine Ratio (uACR) 07/24/2025 07/24/2024, 10/19/2023 Diabetes: Annual GFR (Glomerular Filtration Rate) 07/24/2025 07/24/2024, 10/19/2023 Hypertension/CHF/CAD Annual BMP Blood Test 07/24/2025 07/24/2024, 10/19/2023 Cholesterol Screening (Lipid Panel) 07/24/2029 07/24/2024, 11/09/2023, 10/19/2023 DTaP,Tdap,and Td Vaccines (3 - Td or Tdap) 09/13/2033 09/14/2023, 01/29/2021 HIV Screening Completed 01/29/2021 Hepatitis C Screening Completed 09/14/2023, 021 Pneumococcal Vaccine: Pediatrics (0 to 5 Years) and At-Risk Patients (6 to 64 Years) Completed 07/18/2024, 10/24/2017 HIB Vaccines Aged Out No longer eligi [...] patient's age to complete this topic Meningococcal ACWY Vaccine Aged Out N o longer eligible based on patient's age to complete this topic RSV Immunization Patients Under 20 months Aged Out No longer eligible based on patient's age to complete this topic Varicella Vaccines Aged Out No longer eligible based on patient's age to complete this topic Procedures Procedure Name Priority Date/Time Associated Diagnosis Comments BASIC METABOLIC PANEL Routine 07/24/2024 10:34 AM EST 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 (CMS/HCC) HEMOGLOBIN A1C Routine 07/24/2024 10:34 AM EST 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 (CMS/HCC) LIPID PANEL WITH REFLEX TO DIRECT LDL Routine 07/24/2024 10:34 AM EST 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 (CMS/HCC) MICROALBUMIN CREATININE URINE RATIO Routine 07/24/2024 10:34 AM EST 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 (CMS/HCC) TRANSTHORACIC ECHOCARDIOGRAM (TTE) COMPLETE W/ CONTRAST Routine 06/11/2024 7:52 AM EST Other chest pain DIABETES EYE EXAM Routine 01/15/2024 HEPATITIS C SCREENING Routine 01/29/2021 HIV SCREENING Routine 01/29/2021 from Last 3 Months or Most Recently Relevant to Health Maintenance Results * Lipid panel with reflex to direct LDL (07/24/2024 10:34 AM EST) Cholesterol 77 0 - 200 mg/dL LAB CHEMISTRY METHOD 07/24/2024 3:16 PM EST [facility] Triglycerides 76 0 - 150 mg/dL LAB CHEMISTRY METHOD 07/24/2024 3:16 PM EST [facility] HDL 41 >=40 mg/dL LAB CHEMISTRY METHOD 07/24/2024 3:16 PM EST [facility] LDL Calculated 21 0 - 100 mg/dL LAB CHEMISTRY METHOD 07/24/2024 3:16 PM EST [facility] VLDL Cholesterol José Antonio 15.2 mg/dL LAB CHEMISTRY METHOD 07/24/2024 3:16 PM EST [facility] Non HDL Chol. (LDL+VLDL) 36 <145 mg/dL LAB CHEMISTRY METHOD 07/24/2024 3:16 PM EST [facility] Chol/HDL Ratio 1.9 0.0 - 4.4 LAB CHEMISTRY METHOD 07/24/2024 3:16 PM EST [facility] Blood Venous blood specimen / Unknown Venipuncture / Unknown 07/24/2024 10:34 AM EST 07/24/2024 10:34 AM EST Lily ATKINSON LAB BLOOD ORDERABLE S [facility] [address] [place] [address], * (ABNORMAL) Microalbumin creatinine urine ratio (07/24/2024 10:34 AM EST) Creatinine, Urine 306.0 mg/dL LAB CHEMISTRY METHOD 07/24/2024 3:43 PM [facility] Microalb, Ur 115.0(H) 0.0 - 29.0 mg/L LAB CHEMISTRY METHOD 07/24/2024 3:43 PM [facility] Microalb/Crea t Ratio 38(H) <30 mg/g creat LAB CHEMISTRY METHOD 07/24/2024 3:43 PM [facility] Urine Urine specimen from urethra / Unknown Non-blood Collection / Unknown 07/24/2024 10:34 AM EST 07/24/2024 10:34 AM EST Lily ATKINSON LAB URINE ORDERABLE S [facility] [address] [place] [address], [place] [phone] * (ABNORMAL) Hemoglobin A1c (07/24/2024 10:34 AM EST) Hemoglobin A1C 6.8(H) <6.5 % LAB CHEMISTRY METHOD 07/24/2024 2:15 PM [facility] Mean Bld Glu Estim. 148 mg/dL LAB CHEMISTRY METHOD 07/24/2024 2:15 PM [facility] Blood Venous blood specimen / Unknown Venipuncture / Unknown 07/24/2024 10:34 AM EST 07/24/2024 10:34 AM EST Lily ATKINSON LAB BLOOD ORDERABLE S [facility] [address] [place] [address], [place] [phone] * Basic metabolic panel (07/24/2024 10:34 AM EST) Sodium 138 133 - 145 mmol/L LAB CHEMISTRY METHOD 07/24/2024 3:15 PM [facility] Potassium 3.7 3.5 - 5.5 mmol/L LAB CHEMISTRY METHOD 07/24/2024 3:15 PM [facility] Chloride 105 96 - 110 mmol/L LAB CHEMISTRY METHOD 07/24/2024 3:15 PM [facility] CO2 30 21 - 32 mmol/L LAB CHEMISTRY METHOD 07/24/2024 3:15 PM [facility] Anion Gap 3 3 - 11 LAB CHEMISTRY METHOD 07/24/2024 3:15 PM [facility] Glucose 96 70 - 100 mg/dL LAB CHEMISTRY METHOD 07/24/2024 3:15 PM [facility] BUN 17 5 - 25 mg/dL LAB CHEMISTRY METHOD 07/24/2024 3:15 PM [facility] Creatinine 0.79 0.70 - 1.30 mg/dL LAB CHEMISTRY METHOD 07/24/2024 3:15 PM [facility] eGFR 109 >=60 mL/min/1. 73m2 LAB CHEMISTRY METHOD 07/24/2024 3:15 PM [facility] Comment:Calculation based on the??Chronic Kidney Disease Epidemiology Collaboration (CKD-EPI) equation refit??without adjustment for race. BUN/Creatinine Ratio 21.5 LAB CHEMISTRY METHOD 07/24/2024 3:15 PM [facility] Calcium 9.6 8.5 - 10.5 mg/dL LAB CHEMISTRY METHOD 07/24/2024 3:15 PM [facility] Blood Venous blood specimen / Unknown Venipuncture / Unknown 07/24/2024 10:34 AM EST 07/24/2024 10:34 AM EST Lily ATKINSON LAB BLOOD ORDERABLE S [facility] [address] [place] [address], * (ABNORMAL) TRANSTHORACIC ECHOCARDIOGRAM (TTE) COMPLETE W/ CONTRAST (06/11/2024 7:52 AM EST) LV EDV (A2C) 129 mL CV PACS LV EDV (A4C) 127 mL CV PACS LV Diastolic Volume (BP) 130 62 - 150 mL CV PACS LV ESV (A2C) 56 mL CV PACS LV ESV (A4C) 61 mL CV PACS LV Systolic Volume (BP) 58 21 - 61 mL CV PACS IVSD 1.2(A) 0.6 - 1.0 cm CV PACS LVIDD 4.1(A) 4.2 - 5.8 cm CV PACS LVIDS 3.0 2.5 - 4.0 cm CV PACS LVOT Diameter 2.0 cm CV PACS LVOT Mean Grad 2 mmHg CV PACS LVOT Peak VTI 16.7 cm CV PACS LVOT Mean Adiel 0.7 m/s CV PACS LVOT Peak Adiel 1.0 m/s CV PACS LVOT Peak Gradient 4 mmHg CV PACS LVPWD 1.2(A) 0.6 - 1.0 cm CV PACS MV E' Tissue Velocity Lateral 10 cm/s CV PACS MV E' Tissue Velocity Septal 7 cm/s CV PACS Ejection Fraction (A2C) 56 % CV PACS Ejection Fraction (A4C) 52 % CV PACS Ejection Fraction (BP) 55 % CV PACS LVOT Area 3.1 cm2 CV PACS LVOT Stroke Volume 52 mL CV PACS Left Atrium Minor [place] 5.3 cm CV PACS Left Atrium Major [place] 5.2 cm CV PACS LA Area Sys (A2C) 18 cm2 CV PACS LA Area Sys (A4C) 20 cm2 CV PACS LA Volume (BP) 55 mL CV PACS RA Area 15.5 cm2 CV PACS RA 2D Volume 44 mL CV PACS AV Mean Gradient 3 mmHg CV PACS Ao VTI 20.9 cm CV PACS AV Peak Adiel 1.2 m/s CV PACS AV Peak Gradient 6 mmHg CV PACS AV Area Continuity Equation 2.5 cm2 CV PACS AV Area Peak Velocity 2.6 cm2 CV PACS Aortic Sinus Valsalva 3.2 cm CV PACS Ascending Aorta 3.3 cm CV PACS IVC Proximal 0.8 cm CV PACS E Wave Deceleration Time 176 119 - 242 ms CV PACS MV Peak A Adiel 0.85 m/s CV PACS MV Peak E Adiel 0.68 m/s CV PACS PV Peak Velocity 1.5 m/s CV PACS PV Peak Gradient 9 mmHg CV PACS RV Diastolic Basal Dimension 3.0 2.5 - 4.1 cm CV PACS RV S' 12 cm/s CV PACS TAPSE 19 mm CV PACS TR Peak Velocity 2.31 m/s CV PACS TR Peak Gradient 21 mmHg CV PACS E/E' Ratio Septal 10 CV PACS E/E' Ratio Averaged 8 CV PACS Relative Wall Thickness ratio 0.59 CV PACS LVOT:AV VTI Index 0.80 CV PACS FS 27 % CV PACS LV Mass 2D 172 g CV PACS LVOT flow 220 mL/s CV PACS AV Velocity Ratio 0.83 CV PACS E/A Ratio 0.8 CV PACS E/E' Ratio Lateral 7 CV PACS BSA 2.04 m2 CV PACS LV Diastolic Volume Index (BP) 65 34 - 74 mL/m2 CV PACS LV Systolic Volume Index (BP) 29 11 - 31 mL/m2 CV PACS LV EDV Index (A4C) 64 mL/m2 CV PACS LV ESV Index (A4C) 31 mL/m2 CV PACS LV EDV Index (A2C) 65 mL/m2 CV PACS LV ESV Index (A2C) 28 mL/m2 CV PACS LA Volume Index (BP) 28 mL/m2 CV PACS LVIDD Index 2.05 cm/m2 CV PACS LVIDS Index 1.50 cm/m2 CV PACS LV Mass Index 2D 86 50 - 102 g/m2 CV PACS LVOT Stroke Index 26 mL/m2 CV PACS RA 2D Volume Index 22 18 - 32 mL/m2 CV PACS NINFA Index (VTI) 1.25 cm2/m2 CV PACS NINFA Index (Pk Adiel) 1.30 cm2/m2 CV PACS Ascending Aorta Index 1.65 cm/m2 CV PACS Right Ventricular Peak Systolic Pressure 24 mmHg CV PACS Est. RA Pressure 3 mmHg CV PACS Anatomical Region Laterality Modality Ultrasound Narrative 07/08/2024 6:55 PM EST ?Left ventricle cavity size is normal. Left ventricular systolic function is in the normal range. EF by 2D Jauregui biplane is 55%. ?No regional LV wall motion abnormalities noted. ?Right ventricle cavity is normal. Right ventricular systolic function is normal. ?Tricuspid??Valve: There is mild regurgitation. ?Mitral??Valve: There is mild regurgitation. Left Ventricle Left ventricle cavity size is normal. There is mild concentric hypertrophy. Systolic function is normal. The quantitative EF by 2D Jauregui biplane is 55%. There are no regional LV wall motion abnormalities. There is no diastolic dysfunction. Right Ventricle Right ventricle cavity appears normal. Systolic function is normal. Left Atrium Left atrium volume index is normal. Right Atrium Right atrium cavity is normal. IVC/SVC RA pressures is estimated to be 3 mmHg (IVC diameter <21 mm and decreases >50% during inspiration). Mitral Valve The leaflets are mildly thickened. There is mild regurgitation. There is no evidence of mitral valve stenosis. Tricuspid Valve The leaflets exhibit normal excursion. There is mild regurgitation. There is no evidence of tricuspid valve stenosis. The RVSP is estimated at 24 mmHg. Aortic Valve The aortic valve is trileaflet. There is no regurgitation or stenosis. Pulmonic Valve Pulmonic valve structure is normal. There is trace pulmonic valve regurgitation. There is no evidence of pulmonic valve stenosis. Ascending Aorta The aorta appears normal in size. Pericardium Pericardium appears normal. There is no pericardial effusion. Study Details Overall the study quality was adequate. Definity contrast was given to enhance imaging. Moiz Damon MD CV ECHO PROCED URES * Diabetes Eye Exam (01/15/2024) [facility] Diabetes: Annual Retina Eye Exam ABSTRACTED Historical Provider MD SABRINA BOYER E * HIV Screening (01/29/2021) [facility] HIV Screening ABSTRACTED Historical Provider MD SABRINA Baeza * Hepatitis C Screening (01/29/2021) [facility] Hepatitis C Screening ABSTRACTED Historical Provider MD SABRINA Baeza from Last 3 Months or Most Recently Relevant to Health Maintenance Care Teams Lathe Set Up Operator Relationship Specialty Start Date End Date Sam Bacon [address] [place] [address] PCP - General 02/21/24
--- OUTSIDE RECORDS SUMMARY | 2024-08-02 11:20 | XMS_ITS | Encounter Summary ---
Author Organization [facility] Address [address] [place] [address] Care Team Providers Care Copy Manager Name Role Phone Sam Bacon Primary Care Provide r Reason for Visit * Reason Onset Date Comments medication clarification 07/24/2024 Encounter Details Date Type Department Care Team ([facility] st Contact Info) Description 07/24/2024 Telephone [facility] - [address] [phone] Lily Sepulveda PA [address] [place] [address] medication clarification Social History Tobacco Use Types Packs/Day Years Used Date Smoking Tobacco: Former Cigarettes 0 10/24/2001 - 10/24/2005 Smokeless Tobacco: Never Alcohol Use Standard Drinks/Week [...] on file documented as of this encounter Progress Notes * Eloina Sanchez RN - 07/25/2024 2:22 PM EST Instructions printed and left at desk, pt will come to pick it up. Also advised when he picks up the Novolog instructions will be on the box. * Cathrynangela Hendrixy - 07/24/2024 4:23 PM EST Patients needs his sliding scale directions printed out and mailed to him. He says the AVS does notshow the directions for the sliding scale. documented in this encounter Plan of Treatment Upcoming Encounters Date Type Department Care Team (Late st Contact Info) Description 08/12/2024 8:50 AM EST Office Visit [facility] Cardiology [facility] [address] [place] [address] Dr [address] [place] [address] Moiz Damon MD [address] [place] [address] Dr Alex [address] [place] [address] 09/24/2024 9:15 AM EDT Office Visit Bariatric Surgery - [place] [address] [phone] Lizz Braden PA [address] [address] 10/23/2024 10:45 AM EDT Office Visit Endocrinology [facility] [address] [place] [phone] Lily Sepulveda PA [address] [place] [address] documented as of this encounter Visit Diagnoses Not on filedocumented in this encounter Care Teams Copy Manager Relationship Specialty Start Date End Date Sam Bacon [address] [place], [place] PCP - General 02/21/24 documented as of this encounter
--- OUTSIDE RECORDS SUMMARY | 2024-08-02 11:20 | XMS_ITS | Encounter Summary ---
Author Organization [employer] Address [address] [place] [address] Care Team Providers Care Senior Director Of [employer] Name Role Phone Sam Bacon MD Primary Care Prov ider Encounter Details Date Type Department Care Team ([facility] st Contact Info) Description 08/02/2024 8:45 AM EST Office Visit [facility] MED & PEDS [address] [place], [place] [phone] Roberta Quinones FNP [address] [place], [place] [phone] Viral syndrome (Primary Dx); Encounter for immunization Social History Tobacco Use Types Packs/Day Years [...] Mass Index 29.25 08/02/2024 8:53 AM EST documented in this encounter Progress Notes * Roberta Quinones, ALEKSANDER - 08/02/2024 8:45 AM EST Subjective: Juani Ornelas is a 49 y.o. male w/ PMH T2DM, hypertension, GERD who presents to the office for a sick visit. HPI Reports sore throat, cough, and ear pain that began approximately 1 week ago Denies any fevers, chills, nausea, vomiting, or diarrhea. No nasal congestion or headache Has been using APAP as needed for ear pain with good effect Continues with frequent small sips of fluid Sick contacts: Children with RSV Review of Systems Constitutional: Negative for chills and fever. HENT: Positive for ear pain and sore throat. Respiratory: Positive for cough. Negative for wheezing. Cardiovascular: Negative for chest pain and palpitations. Gastrointestinal: Negative for diarrhea, nausea and vomiting. Visit Vitals BP (!) 142/89 (BP Location: Left arm, Patient Position: Sitting, BP Cuff Size: Adult) Pulse (!) 113 Temp 98.9 ??F (37.2 ??C) (Oral) Resp 20 Ht 5' 8 (1.727 m) Wt 192 lb 6.4 oz (87.3 kg) SpO2 99% BMI 29.25 kg/m?? Smoking Status Former BSA 2.05 m?? Physical Exam Constitutional: General: He is not in acute distress. HENT: Head: Normocephalic and atraumatic. Right Ear: Tympanic membrane, ear canal and external ear normal. Left Ear: Tympanic membrane, ear canal and external ear normal. Mouth/Throat: Comments: Mild erythema in oropharynx Eyes: Pupils: Pupils are equal, round, and reactive to light. Cardiovascular: Rate and Rhythm: Regular rhythm. Tachycardia present. Heart sounds: Normal heart sounds. Pulmonary: Effort: Pulmonary effort is normal. Breath sounds: Normal breath sounds. Abdominal: Palpations: Abdomen is soft. Lymphadenopathy: Cervical: Cervical adenopathy present. Skin: General: Skin is warm. Neurological: Mental Status: He is oriented to person, place, and time. Psychiatric: Mood and Affect: Mood normal. Behavior: Behavior normal. Problem List Items Addressed This Visit Visit Diagnoses Viral syndrome - Primary -Rapid FluA&B and COVID negative in office. Resp viral panel sent to lab for further eval. -Suspect hypertension and tachycardia 2/2 illness and dehydration. Encouraged to cont with frequentsips of fluid -Encouraged to continue with symptomatic management at home including rest, hydration, tea with honey for sore throat, APAP and ibuprofen PRN -ED/urgent care precautions reviewed -Follow up with any persistent or worsening of symptoms. Relevant Medications ibuprofen 600 MG tablet acetaminophen (Acetaminophen 8 Hour) 650 MG ER tablet Other Relevant Orders POCT Rapid Covid-19 BinaxNOW POCT Rapid Influenza A OSOM POCT Rapid Influenza B OSOM Respiratory Viral Panel PCR Encounter for immunization Relevant Orders COVID-19 VACCINE ([employer]) [id number] 12 yrs + (Completed) FLU VACCINE TRIVALENT (Flucelvax) 6 mo + (Completed) Follow up: routine care with PCP, sooner as needed documented in this encounter Plan of Treatment Upcoming Encounters Date Type Department Care Team (Late st Contact Info) Description 10/18/2024 8:00 AM EDT Office Visit [facility] [address] [place] [address] Adolph Cummings Scheduled Orders Name Type Priority Associated Diagnoses Orde r Schedule Respiratory Viral Panel PCR Lab Routine Viral syndrome Ordered: 08/02/2024 documented as of this encounter Procedures Procedure Name Priority Date/Time Associated Diagnosis Comments POCT RAPID COVID ANTIGEN Routine 08/02/2024 10:39 AM EST Viral syndrome POCT INFLUENZA A Routine 08/02/2024 10:3 8 AM EST Viral syndrome POCT INFLUENZA B Routine 08/02/2024 10:3 7 AM EST Viral syndrome documented in this encounter Results * POCT Rapid Covid-19 BinaxNOW (08/02/2024 10:39 AM EST) Rapid COVID Ag Negative QC Media Lot # [id number] Lot# Expiration Date [id number] Comment:controls passed Swab 08/02/2024 10:3 9 AM EST us Roberta ARMIJO POINT OF CARE TEST ENTER/EDIT ORDERABLES Final Result * POCT Rapid Influenza A OSOM (08/02/2024 10:38 AM EST) Rapid Influenza A Ag Negative Negative, Indeterminate QC Media Lot # [id number] Lot# Expiration Date [id number] Comment:control passed Swab Nasopharyngeal structure / Unknown 08/02/2024 10:38 AM EST us Roberta ARMIJO POINT OF CARE TEST ENTER/EDIT ORDERABLES Final Result * POCT Rapid Influenza B OSOM (08/02/2024 10:37 AM EST) Rapid Influenza B Ag Negative Negative, Indeterminate QC Media Lot # [id number] Comment:control passed Lot# Expiration Date [id number] Swab 08/02/2024 10:3 7 AM EST Roberta Quinones DEPOSITION REPORTER POINT OF CARE TEST ENTER/EDIT ORDERABLES Final Result documented in this encounter Visit Diagnoses Diagnosis Viral syndrome- Primary Unspecified viral infection, in conditions classified elsewhere and of unspecified site Encounter for immunization documented in this encounter Additional Health Concerns Assessment Noted Time PHQ-9 Depression Total Score: 11 024 9:07 AM EDT documented as of this encounter Care Teams Senior Director Of [employer] Relationship Specialty Start Date End Date Sam Bacon MD [address] [place] [phone] PCP - General Internal Medicine 09/14/23 documented as of this encounter
--- OUTSIDE RECORDS SUMMARY | 2024-08-02 11:20 | XMS_ITS | Encounter Summary ---
Author Organization [facility] Address [address] [place] [address] Care Team Providers Care Filtering Machine Tender Helper Name Role Phone Sam Bacon Primary Care Provide r Reason for Visit * Reason Onset Date Comments No Call No Show 07/10/2024 Letter sent. Encounter Details Date Type Department Care Team (Late st Contact Info) Description 07/10/2024 Telephone [facility] [address] [place] [phone] MengMoiz Bob MD [address] [place] [address] Dr Johnson [address] [place] [address] No Call No Show (Letter sent.) Social History Tobacco Use Types Packs/Day Years [...] as of this encounter Progress Notes * Teodora Mcnally [place] - 07/10/2024 4:21 PM EST Will mail out no-show policy letter to address on file. documented in this encounter Plan of Treatment Upcoming Encounters Date Type Department Care Team (Late st Contact Info) Description 08/12/2024 8:50 AM EST Office Visit [facility] Cardiology [facility] [address] [place] [address] Moiz Damon MD [address] [place] [address] Dr Alex [address] [place] [address] 09/24/2024 9:15 AM EDT Office Visit Bariatric Surgery - [place] 175 [facility] [address] [place] [phone] Lizz Braden PA [address] [facility] [address] [place] [address] 10/23/2024 10:45 AM EDT Office Visit Endocrinology [facility] [address] [place] [address] Lily Sepulveda PA [address] [place] [address] documented as of this encounter Visit Diagnoses Not on filedocumented in this encounter Care Teams Filtering Machine Tender Helper Relationship Specialty Start Date End Date Sam Bacon [address] [place], [place] PCP - General 02/21/24 documented as of this encounter
[2024-08-02 15:06] LABS: Adenovirus PCR Not Detected (Not Detect.); Bordetella parapertussis PCR Not Detected (Not Detect.); Bordetella pertussis PCR Not Detected (Not Detect.); Chlamydia pneumoniae PCR Not Detected (Not Detect.); Coronavirus 229E PCR Not Detected (Not Detect.); Coronavirus HKU1 PCR Not Detected (Not Detect.); Coronavirus NL63 PCR Not Detected (Not Detect.); Coronavirus OC43 PCR Not Detected (Not Detect.); Human metapneumovirus PCR Not Detected (Not Detect.); Influenza A PCR Not Detected (Not Detect.); Influenza B PCR Not Detected (Not Detect.); Mycoplasma pneumoniae PCR Not Detected (Not Detect.); Parainfluenza 1 PCR Not Detected (Not Detect.); Parainfluenza 2 PCR Not Detected (Not Detect.); Parainfluenza 3 PCR Not Detected (Not Detect.); Parainfluenza 4 PCR Not Detected (Not Detect.); RSV PCR Not Detected (Not Detect.); Rhino/Enterovirus PCR Not Detected (Not Detect.)
[2024-08-02 15:18] LABS: SARS-CoV-2 PCR Not Detected (Not Detect.)
== END 2024-08-02 10:38 | disposition home or self-care (01) ==
LOC: HO.CHCLNP 10:37
PROVIDERS: Visit Provider Registered Nurse
DX: J02.9 Acute pharyngitis, unspecified (principal)
CPT/HCPCS: 87633

== ENCOUNTER 2024-08-05 10:14 | Outpatient (REF) | payer MEDICARE, SELFPAY ==
--- OUTSIDE RECORDS SUMMARY | 2024-08-05 10:57 | XMS_ITS | Clinical Summary ---
Author Organization [employer] Address [address] [facility] 7[address] [place] [address] Care Team Providers Care Career Services Manager Name Role Phone Sam Bacon MD Primary [...] Blood Gluc Sensor (FreeStyle Oj 2 Sensor) [facility] Apply 1 sensor every 14 days 2 [...] by mouth 2 times daily. 60 tablet 11 10/27/19 24 025 Active amLODIPine (Norvasc) 5 MG tablet Take 1 tablet (5 mg) by mouth Once per day. 90 tablet 3 05/02/20 24 Active Farxiga 10 MG Take 1 tablet [...] topically 3 times daily. 300 g 01/12/20 24 Active aspirin 81 MG EC tablet Take [...] mg) by mouth at bedtime. 90 tablet 3 07/18/19 026 Active ibuprofen 600 MG tabletIndicati ons:Viral syndrome Take 1 tablet (600 mg) by mouth every 8 (eight) hours if needed for moderate pain or fever. 100 tablet 1 08/02/19 25 025 Active acetaminophen (Acetaminophen 8 Hour) 650 MG ER tabletIndicati ons:Viral syndrome Take 1 tablet (650 mg) by mouth every 8 (eight) hours if needed for moderate pain (fever). Do not crush, chew, or split. 100 tablet 1 08/02/19 25 026 Active irbesartan (Avapro) 300 MG tablet Take 1 tablet (300 mg) by mouth at bedtime. 90 tablet 3 09/18/19 025 Discontinued(Re order (will not trigger notification to Pharmacy)) Lantus SoloStar 100 UNIT/ML pen Inject 70 Units under the skin 2 times daily. 3 mL 10/12/19 24 025 Discontinued(Re order (will not trigger notification [...] 11:57 AM EDT): Patient has hx of [place], refers had a chest pain last Monday, did not seek medical advise, EKG was done. 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 with sensitometrist, stress test was done on 2021 Screening [...] Plan (09/14/2023 6:10 PM EDT): Followed by [facility] on bupropion 300mg, lithium 300mg, olanzapine [...] pain 03/17/2017 Overview (10/27/2023): Xrau 03/17/15 in [place] shows right glenoid degenerative subarticular cyst vs screw tracts, Overview: Xrau 03/17/15 [place] shows right glenoid degenerative subarticular cyst vs screw tracts, 03/17/15 (in [place]) XR = glenoid degenerative subarticular cyst vs screw tracts Uncircumcised male 03/17/2017 Chest pain 03/17/2017 Overview (10/27/2023): 03/28/16 Treadmill stress test in [place] clinically positive for ischemia. SPECT study shows [...] was hospitalized again in December 2017 at [facility] for chest pain- ruled out with serial cardiac enzymes and again had an unremarkable nremarkable stress test -More recently presented again to [facility] May 2022 with symptoms of atypical [...] pain 03/17/2017 Overview (10/27/2023): [place]ray 03/17/15 [place] shows lumbar spasm, L3-L4 and L4-L5 DDD with secondary spondylosis at the L3-L4 level MRI lumbar spine 06/30/15 shows early degenerative changes at L4-L55 with decreased signal intesnsity and posterior bulging of annulus fibrosis, no disc extrusions or protrusions are detected. L1 vertebral body hemangioma. Overview: Xray 03/17/15 in [place] shows lumbar spasm, L3-L4 and L4-L5 DDD [...] Encounters Date Type Department Care Team Description 08/05/2024 Orders Only [facility] MEDICINE [address] [place] [address] Sam Bacon MD Dysuria (Primary Dx) 08/02/2024 8:45 AM EST Office Visit [facility] MED & PEDS [address] [place] [address] Roberta Quinones, ALEKSANDER Viral syndrome (Primary Dx); Encounter for immunization 08/02/2024 Travel 07/30/2024 1:00 PM EST Office Visit [facility] ADULT DENTAL [address] [place] [address] Marco Steele 07/18/2024 8:45 AM EST Office Visit [facility] MED & PEDS [address] [place] [address] Sam Bacon MD Encounter for immunization (Primary Dx); Type 2 diabetes mellitus with hyperglycemia, with long-term current use of insulin ([facility]); Primary hypertension; Screening for colon cancer 07/18/2024 Travel 07/17/2024 Telephone [facility] MED & PEDS [address] [place] [address] Sam Bacon MD Chart Prep 07/12/2024 10:00 AM EST Office Visit [facility] ADULT DENTAL [address] [place] [address] Marco Steele 05/09/2024 9:00 AM EST Office Visit [facility] ADULT DENTAL [address] [place] [address] Nat Randall DDS from Last 3 Months [...] Care Team (Late st Contact Info) Description 08/08/2024 9:30 AM EST Office Visit [facility] MED & PEDS [address] [place] [address] Sam Bacon MD [address] [place] [address] 10/18/2024 8:00 AM EDT Office Visit [facility] ADULT DENTAL [address] [place] [address] Adolph Cummings Health Maintenance Due Date Last [...] Panel 11/08/2024 11/09/2023, 09/14/2023 Diabetes: Hemoglobin A1C 01/15/2025 025, 12/07/2023, 09/14/2023 Zoster Vaccines (1 of [...] 08/02/2024 10:3 7 AM EST Viral syndrome RESPIRATORY VIRAL PANEL PCR Routine 08/02/2024 12:00 AM EST Viral syndrome WAX TRY IN Routine 07/30/2024 1:00 PM EST POCT GLYCATED HEMOGLOBIN, TOTAL Routine 07/18/2024 9:02 AM EST Type 2 diabetes mellitus with hyperglycemia, with long-term current use of insulin ([facility]) POCT GLUCOSE Routine 07/18/2024 9:01 AM EST Type 2 diabetes mellitus with hyperglycemia, with long-term current use of insulin ([facility]) BITE REGISTRATION Routine 07/12/2024 10: 00 AM [...] hyperglycemia, with long-term current use of insulin ([facility]) HEPATITIS C AB W/REFL TO HCV RNA, QN, PCR Routine 09/14/2023 9:48 AM EDT Type 2 diabetes mellitus with hyperglycemia, with long-term current use of insulin ([facility]) from Last 3 Months or Most Recently Relevant to Health Maintenance Results * POCT Rapid Covid-19 BinaxNOW (08/02/2024 10:39 AM EST) Pathologist [facility] Rapid COVID Ag Negative QC Media Lot # [id number] Lot# Expiration Date [id number] Comment:controls passed Swab 08/02/2024 10:3 9 AM EST Roberta Quinones TELECOM SALES CONSULTANT POINT OF CARE TEST ENTER/EDIT ORDERABLES Final Result * POCT Rapid Influenza A OSOM (08/02/2024 10:38 AM EST) Pathologist [facility] Rapid Influenza A Ag Negative Negative, Indeterminate QC Media Lot # [id number] Lot# Expiration Date Comment:control passed Swab Nasopharyngeal structure / Unknown 08/02/2024 10:38 AM EST us Roberta JACOBSONP POINT OF CARE TEST ENTER/EDIT ORDERABLES Final Result * POCT Rapid Influenza B OSOM (08/02/2024 10:37 AM EST) [facility] Rapid Influenza B Ag Negative Negative, Indeterminate QC Media Lot # [id number] Comment:control passed Lot# Expiration Date Swab 08/02/2024 10:3 7 AM EST us Roberta Quinones TELECOM SALES CONSULTANT POINT OF CARE TEST ENTER/EDIT ORDERABLES Final Result * Respiratory Viral Panel PCR (08/02/2024 12:00 AM EST) [facility] Adenovirus PCR Not Detected Not Detect. [facility] Bordetella pertussis PCR Not Detected Not Detect. [facility] Comment:Interpret results wi th caution. If B. pertussis isspecifically suspected, additional testing using analternate method is recommended. Bordetella parapertussis PCR Not Detected Not Detect. [facility] Chlamydia pneumoniae PCR Not Detected Not Detect. [facility] Coronavirus 229E PCR Not Detected Not Detect. [facility] Coronavirus HKU1 PCR Not Detected Not Detect. [facility] Coronavirus NL63 PCR Not Detected Not Detect. [facility] Coronavirus OC43 PCR Not Detected Not Detect. [facility] SARS-CoV-2 PCR Not Detected Not Detect. [facility] Comment:SARS-CoV-2 not detec vale by real-time RT-PCR.Note: If clinical suspicion for Sars-CoV-2 is high, continueto maintain precautions and consider repeat testing.Test results should be interpreted in the context ofclinical findings and other laboratory data.Rare polymorphisms exist that could lead to false-negativeor false-positive results. If results do not match theclinical findings, additional testing should be considered.Results reported to [facility].This test has been authorized by the FDA under the EmergencyUse Authorization (EUA) for use by authorized laboratories. Influenza A PCR Not Detected Not Detect. [facility] Influenza B PCR Not Detected Not Detect. [facility] Human metapneumovirus PCR Not Detected Not Detect. [facility] Rhino/Enterovirus PCR Not Detected Not Detect. [facility] Mycoplasma pneumoniae PCR Not Detected Not Detect. [facility] Parainfluenza 1 PCR Not Detected Not Detect. [facility] Parainfluenza 2 PCR Not Detected Not Detect. [facility] Parainfluenza 3 PCR Not Detected Not Detect. [facility] Parainfluenza 4 PCR Not Detected Not Detect. [facility] RSV PCR Not Detected Not Detect. [facility] Resp Panel NA Note See Note H [facility] Comment:All results must be correlated with clinical findings.Negative results should not be used as the sole basis fordiagnosis, treatment, or other management decisions.A negative result does not exclude the possibility of viralor bacterial infection. Negative results may occur from thepresence of sequence variants in the region targeted by theassay, the presence of inhibitors, an infection caused by anorganism not detected by the panel, or lower respiratorytract infections that are not detected by a nasopharyngealswab specimen. Test results may also be affected byconcurrent antiviral/antibacterial therapy or levels oforganism in the specimen that are below the limit ofdetection for this test.This assay is performed by Multiplexed PCR, utilizing [employer] Array. 08/02/2024 08/02/2024 us Roberta Quinones TELECOM SALES CONSULTANT LAB BLOOD ORDERABLES Final Res ult [facility] [address] [place] [address] [phone] * (ABNORMAL) POCT HGB A1C (07/18/2024 9:02 AM EST) Hemoglobin A1C 6.8(A) 4.0 - 6.0 % QC Media Lot # [id number] Lot# Expiration Date 688 Blood 07/18/2024 9:02 AM EST Sam Coreas MD POINT OF CARE TEST ENTER/EDIT ORDERABLES Final Result * POCT Glucose (07/18/2024 9:01 AM EST) Glucose Blood, POC 125 60 - 200 mg/dL QC Media Lot # [id number] Lot# Expiration Date 769 Blood Capillary blood specimen / Unknown 07/18/2024 9:01 AM EST Sam Coreas MD POINT OF CARE TEST ENTER/EDIT ORDERABLES Final Result * EMG (06/17/2024) Sam Coreas MD NEUROLOGY ORDERABL ES Final Result * (ABNORMAL) Lipid Panel, Standard (11/09/2023 9:17 AM EDT) Triglycerides 168(H) <150 mg/dL [facility] Comment:Desirable Triglyceri de: less than 150 mg/dLBorderline High Triglyceride 150-199 mg/dLHigh Triglyceride: 200-499 mg/dLVery High Triglyceride: greater than or equal to 5OO mg/dL Cholesterol 175 <200 mg/dL [facility] Comment:Desirable Cholestero l: less than 200 mg/dLBorderline High Cholesterol: 200-239 mg/dLHigh Cholesterol: greater than 239 mg/dL LDL Cholesterol Calculated 106(H) <100 mg/dL [facility] Comment:Desirable LDL: less than 100 mg/dLNear Optimal/Above Optimal LDL: 110- 129 mg/dLBorderline High LDL: 130-159 mg/dLHigh LDL: 160-189 mg/dLVery High LDL: greater than or equal to 190 mg/dL HDL Cholesterol 36(L) >40 mg/dL [facility] Comment:Desirable HDL: great er than 40 mg/dL Note: This HDL assay may give artificially low results in patients with liver disease. Blood Venous blood specimen / Unknown 11/09/2023 9:17 AM EDT 11/09/2023 2:39 PM EDT Sam Coreas MD LAB BLOOD ORDERABL ES Final Result Performing Organization Address [facility]/ZIP Co de Phone Number [facility] [address] [place] [address] [phone] * Hepatitis C Antibody with Reflex to HCV, RNA, Quantitative, Real-Time PCR (09/14/2023 9:48 AM EDT) Hepatitis C Antibody Nonreactive Nonreactive [facility] Comment:Antibodies to HCV no t detected; does not exclude early acuteHCV infection. Blood Venous blood specimen / Unknown 09/14/2023 9:48 AM EDT 09/14/2023 2:14 PM EDT Sam Coreas MD LAB BLOOD ORDERABL ES Final Result Performing Organization Address [facility] Co de Phone Number [facility] [address] [place] [address] [phone] from Last 3 Months or Most Recently Relevant to Health Maintenance Insurance [address] [place] [address] [facility] - [facility] Care Teams Career Services Manager Relationship Specialty Start Date End Date Sam Bacon MD [address] [place] [id number] PCP - General Internal Medicine 09/14/23
--- OUTSIDE RECORDS SUMMARY | 2024-08-05 10:57 | XMS_ITS | Encounter Summary ---
Author Organization [employer] Address [address] [facility] 7t [place] [address] Care Team Providers Care Groundman Name Role Phone Sam Bacon MD Primary Care Prov ider Reason for Visit * Reason Comments Dentures Wax try in of upper and lower partials Encounter Details Date Type Department Care Team ([facility] st Contact Info) Description 07/30/2024 1:00 PM EST Office Visit [facility] [address] [place] [address] Ivette, Marco [address] [place] [address] Social History Tobacco Use Types Packs/Day Years [...] y.o. male. Time Out: Date: 07/30/2024 Location: [facility] Tooth: Maxilla and Mandible Procedure: Dentures Verified the above with patient, perioperative assistant, and provider. Confirmed via patient's chart, intraorally and by radiographs. Regional Clinical Director: not applicable Wax try in done by [...] satisfied. NV: Insertion Provider: Dr. Marco Steele Government Relations Director: Pao Hayes Supervising Dentist: Dr. Boland * [...] Description 08/08/2024 9:30 AM EST Office Visit [facility] PED[facility] [address] [place] [address] Sam Bacon MD [address] [place] [address] 10/18/2024 8:00 AM EDT Office Visit [facility] AD[facility] [address] [place] [address] Adolph Cummings Scheduled Orders Name Type Priority [...] documented as of this encounter Care Teams Groundman Relationship Specialty Start Date End Date Sam Bacon MD [address] [place] [address] PCP - General Internal Medicine 09/14/23 documented as of this encounter
--- OUTSIDE RECORDS SUMMARY | 2024-08-05 10:57 | XMS_ITS | Encounter Summary ---
Author Organization [facility] Address [address] [place] [address] Care Team Providers Care Manager Financial Reporting Name Role Phone Sam Bacon Primary Care Provide r Reason for Visit * Reason Onset Date Comments No Call No Show 07/10/2024 Letter sent. Encounter Details Date Type Department Care Team (Late st Contact Info) Description 07/10/2024 Telephone [facility] [address] Ari[address] [place] [phone] MengMoiz Bob MD [address] [place] [address] Dr Johnson [address] [place] [address] No Call No Show (Letter sent.) Social [...] Description 08/12/2024 8:50 AM EST Office Visit [facility] Cardiology [facility] [address] [place] [address] Moiz Damon MD [address] [place] [address] Dr Alex [address] [place] [address] 09/24/2024 9:15 AM EDT Office Visit Bariatric Surgery - [place] [address] [facility] [address] [place] [address] Lizz Braden PA [address] [facility] [address] [place] [address] 10/23/2024 10:45 AM EDT Office Visit Endocrinology [place] [address] [place] [address] Lily Sepulveda PA [address] [place] [address] documented as of this encounter Visit Diagnoses Not on filedocumented in this encounter Care Teams Manager Financial Reporting Relationship Specialty Start Date End Date Sam Bacon [address] [place], [place] PCP - General 02/21/24 documented as of this encounter
--- OUTSIDE RECORDS SUMMARY | 2024-08-05 10:57 | XMS_ITS | Clinical Summary ---
Author Organization [facility] Address [address] [place] [address] Care Team Providers Care Receiving Associate Name Role Phone Pcp, No MD Primary [...] OUT OF STATE MEDICARE MANA[place] [address] Care Teams Receiving Associate Relationship Specialty Start Date End Date PcpAmelia MD [address] [place] [address] PCP - General Internal Medicine 06/20/18
--- OUTSIDE RECORDS SUMMARY | 2024-08-05 10:57 | XMS_ITS | Encounter Summary ---
Author Organization [email or web address] Address [address] [facility] 7t [place] [address] Care Team Providers Care Program Evaluation Consultant Name Role Phone Sam Bacon MD Primary Care Prov ider Encounter Details Date Type Department Care Team ([facility] Contact Info) Description 08/02/2024 8:45 AM EST Office Visit [facility] MED & PEDS [address] [place], [place] [phone] Roberta Quinones, ALEKSANDER [address] [place] [address] Viral syndrome (Primary Dx); Encounter for immunization [...] your housing situation today? I have hossein shankar 09/07/[address] you li [...] Encounter for immunization Relevant Orders COVID-19 VACCINE (Patronpath) [id number] 12 yrs + (Completed) FLU VACCINE TRIVALENT (Flucelvax) 6 mo + (Completed) Follow up: routine care with PCP, sooner as needed documented in this encounter Plan of Treatment Upcoming Encounters Date Type Department Care Team (Late st Contact Info) Description 08/08/2024 9:30 AM EST Office Visit [facility] MED & PEDS [address] [place] [address] Sam Bacon MD [address] [place] [address] 10/18/2024 8:00 AM EDT Office Visit [facility] ADULT DENTAL [address] [place] [address] Adolph Cummings documented as of this encounter Procedures Procedure Name Priority Date/Time Associated Diagnosis Comments POCT RAPID COVID ANTIGEN Routine 08/02/2024 10:39 AM EST Viral syndrome POCT INFLUENZA A Routine 08/02/2024 10:3 8 AM EST Viral syndrome POCT INFLUENZA B Routine 08/02/2024 10:3 7 AM EST Viral syndrome RESPIRATORY VIRAL PANEL PCR Routine 08/02/2024 12:00 AM EST Viral syndrome documented in this encounter Results * POCT Rapid Covid-19 BinaxNOW (08/02/2024 10:39 AM EST) Rapid COVID Ag Negative QC Media Lot # [id number] Lot# Expiration Date [id number] Comment:controls passed Swab 08/02/2024 10:3 9 AM EST Roberta ARMIJO POINT OF CARE TEST ENTER/EDIT ORDERABLES Final Result * POCT Rapid Influenza A OSOM (08/02/2024 10:38 AM EST) Rapid Influenza A Ag Negative Negative, Indeterminate QC Media Lot # [id number] Lot# Expiration Date ,[id number] Comment:control passed Swab Nasopharyngeal structure / Unknown 08/02/2024 10:38 AM EST us Roberta JACOBSONP POINT OF CARE TEST ENTER/EDIT ORDERABLES Final Result * POCT Rapid Influenza B OSOM (08/02/2024 10:37 AM EST) Rapid Influenza B Ag Negative Negative, Indeterminate QC Media Lot # [id number] Comment:control passed Lot# Expiration Date ,484 Swab 08/02/2024 10:3 7 AM EST us Roberta JACOBSONP POINT OF CARE TEST ENTER/EDIT ORDERABLES Final Result * Respiratory Viral Panel PCR (08/02/2024 12:00 AM EST) Pathologist [facility] Adenovirus PCR Not Detected Not Detect. [facility] Bordetella pertussis PCR Not Detected Not Detect. [facility] Comment:Interpret results wi th caution. If B. pertussis isspecifically suspected, additional testing using analternate method is recommended. Bordetella parapertussis PCR Not Detected Not Detect. [facility] Chlamydia pneumoniae PCR Not Detected Not Detect. [facility] Coronavirus 229E PCR Not Detected Not Detect. [facility] Coronavirus HKU1 PCR Not Detected Not Detect. [facility] Coronavirus NL63 PCR Not Detected Not Detect. [facility] Coronavirus OC43 PCR Not Detected Not Detect. [facility] SARS-CoV-2 PCR Not Detected Not Detect. [facility] Comment:SARS-CoV-2 not detec vale by real-time RT-PCR.Note: If clinical suspicion for Sars-CoV-2 is high, continueto maintain precautions and consider repeat testing.Test results should be interpreted in the context ofclinical findings and other laboratory data.Rare polymorphisms exist that could lead to false-negativeor false-positive results. If results do not match theclinical findings, additional testing should be considered.Results reported to [facility].This test has been authorized by the FDA under the EmergencyUse Authorization (EUA) for use by authorized laboratories. Influenza A PCR Not Detected Not Detect. [facility] Influenza B PCR Not Detected Not Detect. [facility] Human metapneumovirus PCR Not Detected Not Detect. [facility] Rhino/Enterovirus PCR Not Detected Not Detect. [facility] Mycoplasma pneumoniae PCR Not Detected Not Detect. [facility] Parainfluenza 1 PCR Not Detected Not Detect. [facility] Parainfluenza 2 PCR Not Detected Not Detect. [facility] Parainfluenza 3 PCR Not Detected Not Detect. [facility] Parainfluenza 4 PCR Not Detected Not Detect. [facility] RSV PCR Not Detected Not Detect. [facility] Resp Panel NA Note See Note H [facility] Comment:All results must be correlated with [...] assay is performed by Multiplexed PCR, utilizing the[place] Film Array. 08/02/2024 08/02/2024 Roberta Quinones [facility] BLOOD ORDERABLES Final Res ult [facility] [address] [place] [phone] [phone] documented in this encounter Visit Diagnoses Diagnosis Viral syndrome- Primary Unspecified viral infection, in conditions classified elsewhere and of unspecified site Encounter for immunization documented in this encounter Additional Health Concerns Assessment Noted Time PHQ-9 Depression Total Score: 11 09/13/2 024 9:07 AM EDT documented as of this encounter Care Teams Program Evaluation Consultant Relationship Specialty Start Date End Date Sam Bacon MD [address] [place] [phone] PCP - General Internal Medicine 09/14/23 documented as of this encounter
--- OUTSIDE RECORDS SUMMARY | 2024-08-05 10:57 | XMS_ITS | Encounter Summary ---
Author Organization [employer] Address [address] [facility] 7 [place] [address] Care Team Providers Care Circulation Sales Representative Name Role Phone Sam Bacon MD Primary Care Prov ider Reason for Visit * Reason Comments Filling Encounter Details Date Type Department Care Team ([facility] st Contact Info) Description 07/12/2024 10:00 AM EST Office Visit [facility] ADULT DENTAL [address] [place], [place] [phone] Marco Steele [address] [place] [address] Social History Tobacco Use Types Packs/Day Years [...] your housing situation today? I have hossein sing 09/07/[address] you li [...] documented in this encounter Progress Notes * Marco Steele - 07/12/2024 10:00 AM EST Dental procedures in this visit D5110.8 - BITE REGISTRATION (Completed) Service provider: Marco Steele Billpaz provider: Thi Boland DDS Patient ID: Juani Ornelas is a 49 y.o. male. Time Out: Date: 07/12/2024 Location: [facility] Tooth: Maxilla and Mandible Procedure: Dentures Verified the above with patient, pharmacy affairs assistant, and provider. Confirmed via patient's chart, intraorally and by radiographs. Naphthalene Operator Helper: not applicable Upper and Lower arch bite [...] set in wax Provider: Dr. Marco Steele Regulated Program Manager: Pao Hayes Supervising dentist: Dr. Boland * Thi Boland DDS - 07/12/2024 10:00 AM EST I have reviewed the documentation and dental procedures completed by the rendering provider, Marco Steele DDS, and approve their chart entries for this visit. JONNY Angulo DDS documented in this encounter Plan of Treatment Upcoming Encounters Date Type Department Care Team (Late st Contact Info) Description 08/08/2024 9:30 AM EST Office Visit [facility] MED & PED[facility] [address] [place] [address] Sam Bacon MD [address] [place] [address] 10/18/2024 8:00 AM EDT Office Visit [facility] ADULT DENT[facility] [address] [place] [address] Adolph Cummings Scheduled Orders Name Type Priority [...] documented as of this encounter Care Teams Circulation Sales Representative Relationship Specialty Start Date End Date Sam Bacon MD [address] [place] [address] PCP - General Internal Medicine 09/14/23 documented as of this encounter
--- OUTSIDE RECORDS SUMMARY | 2024-08-05 10:57 | XMS_ITS | Encounter Summary ---
Author Organization [employer] Address [address] [facility] 7t [place] [address] Care Team Providers Care Highway Construction Inspector Name Role Phone Sam Bacon MD Primary Care Prov ider Encounter Details Date Type Department Care Team ([facility] st Contact Info) Description 08/05/[address] [facility] [address] [place] [address] Sam Bacon MD [address] [place] [address] Dysuria (Primary Dx) Social History Tobacco Use Types Packs/Day Years Used Date Smoking Tobacco: Former Cigarettes Q uit: 2003 Smokeless Tobacco: Never Alcohol Use Standard Drinks/Week [...] enough money to get more: Never True 03/ 01/2024 Transportation Answer Date Recorded In the [...] 08/08/2024 9:30 AM EST Office Visit [facility] PED[facility] [address] [place] [address] Sam Bacon MD [address] [place] [address] 10/18/2024 8:00 AM EDT Office Visit [facility] ADULT DENT[facility] [address] [place] [address] Adolph Cummings Scheduled Orders Name Type Priority Associated Diagnoses Orde r Schedule Urinalysis, Complete, with Reflex to Culture Lab Routine Dysuria Expected: 08/05/2024 (Approximate), Expires: 08/05/2025 documented as of this encounter Visit Diagnoses Diagnosis Dysuria- Primary documented in this encounter Additional Health Concerns Assessment Noted Time PHQ-9 Depression Total Score: 11 024 9:07 AM EDT documented as of this encounter Care Teams Highway Construction Inspector Relationship Specialty Start Date End Date Sam Bacon MD [address] [place] [address] PCP - General Internal Medicine 09/14/23 documented as of this encounter
--- OUTSIDE RECORDS SUMMARY | 2024-08-05 10:57 | XMS_ITS | Encounter Summary ---
Author Organization [employer] Address [address] [facility] 7 [place] [address] Care Team Providers Care Traffic Workforce Representative Name Role Phone Sam Bacon MD Primary Care Prov ider Encounter Details Date Type Department Care Team ([facility] st Contact Info) Description 07/18/2024 8:45 AM EST Office Visit [facility] [address] [place], [place] [phone] Sam Bacon MD [address] [place] [address] Encounter for immunization (Primary Dx); Type 2 [...] hyperglycemia, with long-term current use of insulin ([facility]) Patient underwent sleeve gastrectomy, has lost around [...] hyperglycemia, with long-term current use of insulin ([facility]) Patient underwent sleeve gastrectomy, has lost around [...] Description 08/08/2024 9:30 AM EST Office Visit [facility]ED[facility] [address] [place] [address] Sam Bacon MD [address] [place] [address] 10/18/2024 8:00 AM EDT Office Visit [facility] ADULT DENTAL [address] [place] [address] Adolph Cummings documented as of this encounter Procedures Procedure Name Priority Date/Time Associated Diagnosis Comments POCT GLYCATED HEMOGLOBIN, TOTAL Routine 07/18/2024 9:02 AM EST Type 2 diabetes mellitus with hyperglycemia, with long-term current use of insulin ([facility]) POCT GLUCOSE Routine 07/18/2024 9:01 AM EST Type 2 diabetes mellitus with hyperglycemia, with long-term current use of insulin ([facility]) documented in this encounter Results * (ABNORMAL) POCT HGB A1C (07/18/2024 9:02 AM EST) Hemoglobin A1C 6.8(A) 4.0 - 6.0 % QC Media Lot # [id number] Lot# Expiration Date , Blood 07/18/2024 9:02 AM EST Sam Coreas [...] hyperglycemia, with long-term current use of insulin ([facility]) Primary hypertension Unspecified essential hypertension Screening for colon cancer Special screening for malignant neoplasms, colon documented in this encounter Additional Health Concerns Assessment Noted Time PHQ-9 Depression Total Score: 11 09/13/ 024 9:07 AM EDT documented as of this encounter Care Teams Traffic Workforce Representative Relationship Specialty Start Date End Date Sam Bacon MD [address] [place] [address] PCP - General Internal Medicine 09/14/23 documented as of this encounter
--- OUTSIDE RECORDS SUMMARY | 2024-08-05 10:57 | XMS_ITS | Clinical Summary ---
Author Organization [facility] Address [address] [place] [address] Care Team Providers Care Painter And Decorator Name Role Phone Unavailable Primary Care Provider [...] complication, without long-term current use of insulin ([facility]) Test blood sugars TID w/meals DX: [...] polyneuropathy, with long-term current use of insulin ([facility]) Test blood sugars TID w/meals DX: E11.65 Accu-chek sesar plus test stripes 100 Each 11 11/29/19 18 Active lancets (ACCU-CHEK FASTCLIX)Indicatio ns:Type 2 diabetes mellitus with diabetic polyneuropathy, with long-term current use of insulin ([facility]) Test blood sugars TID w/meals DX: E11.65 accu chek fastclix lancets 100 Each 11 11/29/19 18 Active metFORMIN (GLUCOPHAGE) 1,000 mg tabletIndications: Type 2 diabetes mellitus with diabetic polyneuropathy, with long-term current use of insulin ([facility]) Take 1 Tab by mouth 2 (two) times daily with a meal 60 Tab 5 11/29/19 18 Active dapagliflozin 5 mg tabIndications:Typ e 2 diabetes mellitus with diabetic polyneuropathy, with long-term current use of insulin ([facility]) Take 5 mg by mouth once daily 30 Tab 5 11/29/19 18 Active gabapentin (NEURONTIN) 600 mg tabletIndications: Type 2 diabetes mellitus with diabetic polyneuropathy, with long-term current use of insulin ([facility]) Take 1 Tab by mouth once daily [...] polyneuropathy, with long-term current use of insulin ([facility]) Inject 55 Units into the skin [...] polyneuropathy, with long-term current use of insulin ([facility]) INJECT UNDER THE SKIN THREE TIMES DAILY [...] complication, without long-term current use of insulin ([facility]) 03/17/2017 Uncircumcised male 03/17/2017 Chronic left-sided low back pain 03/17/2017 Overview (03/17/2017): [place] 03/17/15 in [place] shows lumbar spasm, L3-L4 and L4-L5 DDD with secondary spondylosis at the L3-L4 level MRI lumbar spine 06/30/15 shows early degenerative changes at L4-L55 with decreased signal intesnsity and posterior bulging of annulus fibrosis, no disc extrusions or protrusions are detected. L1 vertebral body hemangioma. Cervicalgia 03/17/2017 Hypokalemia 03/17/2017 Right shoulder pain 03/17/2017 Overview (03/17/2017): Xrau 03/17/15 in [place] shows right glenoid degenerative subarticular cyst vs screw tracts, Chest pain 03/17/2017 Overview (03/17/2017): 03/28/16 Treadmill stress test in [place] clinically positive for ischemia. SPECT study shows [...] Plan of Treatment Not on file Insurance [facility] Member Subscriber Plan / Payer (Ef fective 2017-Present) Name:Juani Figueroa Relation to Subscriber:Self Name:Juani Figueroa Payer ID:[id number] Group ID:Not on file Type:Pat Address: [facility] [address] [id number]
--- OUTSIDE RECORDS SUMMARY | 2024-08-05 10:57 | XMS_ITS | Encounter Summary ---
Author Organization [facility] Address [address] [place] [address] Care Team Providers Care Oil Well Logger Name Role Phone Sam Bacon Primary Care Provide r Reason for Visit * Reason Comments Endocrine F/u dm Encounter Details Date Type Department Care Team (Late st Contact Info) Description 07/24/2024 9:30 AM EST Office Visit Endocrinology - [address] [address] Lily Sepulveda PA 305 [facility] [place] [address] Type 2 diabetes mellitus with microalbuminuric diabetic [...] Diabetes mellitus type 2 with neurological manifestations ([facility]) 11/28/2017 Depression 10/24/2017 Balanitis 10/06/2017 Cervicalgia 10/06/2017 [...] flash glucose scanning reader (FreeStyle Oj 2 [place]) [facility] 1 Device by Does not apply route [...] Description 08/12/2024 8:50 AM EST Office Visit [facility] Cardiology Formerly [facility] [address] [place] [address] Dr [address] [place] [address] Moiz Damon MD [address] [place] [address] Dr Alex [address] [place] [address] 09/24/2024 9:15 AM EDT Office Visit Bariatric Surgery [facility] [address] [phone] Lizz Braden PA [address] [address] 10/23/2024 10:45 AM EDT Office Visit Endocrinology [address] [address] Lily Sepulveda PA [address] [place] [address] documented as of this encounter Results * (ABNORMAL) Microalbumin creatinine urine ratio (07/24/2024 10:34 AM EST) Creatinine, Urine 306.0 mg/dL LAB CHEMISTRY METHOD 07/24/2024 3:43 PM EST [facility] Microalb, Ur 115.0(H) 0.0 - 29.0 mg/L LAB CHEMISTRY METHOD 07/24/2024 3:43 PM [facility] Microalb/Crea t Ratio 38(H) <30 mg/g creat LAB CHEMISTRY METHOD 07/24/2024 3:43 PM [facility] Urine Urine specimen from urethra / Unknown Non-blood Collection / Unknown 07/24/2024 10:34 AM EST 07/24/2024 10:34 AM EST Lily ATKINSON LAB URINE ORDERABLE S [facility] [address] [place] [address], * Lipid panel with reflex to direct LDL (07/24/2024 10:34 AM EST) Cholesterol 77 0 - 200 mg/dL LAB CHEMISTRY METHOD 07/24/2024 3:16 PM [facility] Triglycerides 76 0 - 150 mg/dL LAB CHEMISTRY METHOD 07/24/2024 3:16 PM [facility] HDL 41 >=40 mg/dL LAB CHEMISTRY METHOD 07/24/2024 3:16 PM [facility] LDL Calculated 21 0 - 100 mg/dL LAB CHEMISTRY METHOD 07/24/2024 3:16 PM [facility] VLDL Cholesterol José Antonio 15.2 mg/dL LAB CHEMISTRY METHOD 07/24/2024 3:16 PM [facility] Non HDL Chol. (LDL+VLDL) 36 <145 mg/dL LAB CHEMISTRY METHOD 07/24/2024 3:16 PM [facility] Chol/HDL Ratio 1.9 0.0 - 4.4 LAB CHEMISTRY METHOD 07/24/2024 3:16 PM [facility] Blood Venous blood specimen / Unknown Venipuncture / Unknown 07/24/2024 10:34 AM EST 07/24/2024 10:34 AM EST Lily ATKINSON LAB BLOOD ORDERABLE S [facility] [address] [place] [address], [place] [phone] * (ABNORMAL) Hemoglobin A1c (07/24/2024 10:34 AM EST) Pathologist [facility] Hemoglobin A1C 6.8(H) <6.5 % LAB CHEMISTRY METHOD 07/24/2024 2:15 PM EST [facility] Mean Bld Glu Estim. 148 mg/dL LAB CHEMISTRY METHOD 07/24/2024 2:15 PM [facility] Blood Venous blood specimen / Unknown Venipuncture / Unknown 07/24/2024 10:34 AM EST 07/24/2024 10:34 AM EST Lily ATKINSON LAB BLOOD ORDERABLE S [facility] [address] [place] [address], * Basic metabolic panel (07/24/2024 10:34 AM EST) [facility] Sodium 138 133 - 145 mmol/L LAB CHEMISTRY METHOD 07/24/2024 3:15 PM [facility] Potassium 3.7 3.5 - 5.5 mmol/L LAB CHEMISTRY METHOD 07/24/2024 3:15 PM [facility] Chloride 105 96 - 110 mmol/L LAB CHEMISTRY METHOD 07/24/2024 3:15 PM [facility] CO2 30 21 - 32 mmol/L LAB CHEMISTRY METHOD 07/24/2024 3:15 PM [facility] Anion Gap 3 3 - 11 LAB CHEMISTRY METHOD 07/24/2024 3:15 PM [facility] Glucose 96 70 - 100 mg/dL LAB CHEMISTRY METHOD 07/24/2024 3:15 PM [facility] BUN 17 5 - 25 mg/dL LAB CHEMISTRY METHOD 07/24/2024 3:15 PM [facility] Creatinine 0.79 0.70 - 1.30 mg/dL LAB CHEMISTRY METHOD 07/24/2024 3:15 PM [facility] eGFR 109 >=60 mL/min/1. 73m2 LAB CHEMISTRY METHOD 07/24/2024 3:15 PM EST [facility] Comment:Calculation based on the??Chronic Kidney Disease Epidemiology Collaboration (CKD-EPI) equation refit??without adjustment for race. BUN/Creatinine Ratio 21.5 LAB CHEMISTRY METHOD 07/24/2024 3:15 PM [facility] Calcium 9.6 8.5 - 10.5 mg/dL LAB CHEMISTRY METHOD 07/24/2024 3:15 PM [facility] Blood Venous blood specimen / Unknown Venipuncture / Unknown 07/24/2024 10:34 AM EST 07/24/2024 10:34 AM EST Lily ATIKNSON LAB BLOOD ORDERABLE S [facility] [address] [place] [address], documented in this encounter Visit Diagnoses Diagnosis [...] documented as of this encounter Care Teams Oil Well Logger Relationship Specialty Start Date End Date Sam Bacon [address] [place], [place] PCP - General 02/21/24 documented as of this encounter
--- OUTSIDE RECORDS SUMMARY | 2024-08-05 10:57 | XMS_ITS | Encounter Summary ---
Author Organization [employer] Address [address] [employer] [employer] [address] [employer] [address] [place] [address] Care Team Providers Care Tax Accounting Assistant Name Role Phone Sam Bacon MD Primary [...] 08/08/2024 9:30 AM EST Office Visit [facility] MED & PEDS [address] [place] [address] Sam Bacon MD [address] [place] [address] 10/18/2024 8:00 AM EDT Office Visit [facility] ADULT DENTAL [address] [place] [address] Adolph Cummings documented as of this encounter Visit Diagnoses Not on filedocumented in this encounter Additional Health Concerns Assessment Noted Time PHQ-9 Depression Total Score: 11 024 9:07 AM EDT documented as of this encounter Care Teams Tax Accounting Assistant Relationship Specialty Start Date End Date Sam Bacon MD [address] [place] [address] PCP - General Internal Medicine 09/14/23 documented as of this encounter
--- OUTSIDE RECORDS SUMMARY | 2024-08-05 10:57 | XMS_ITS | Encounter Summary ---
Author Organization [employer] Address [address] [facility] 7t [place] [address] Care Team Providers Care Warp Hanger Name Role Phone Sam Bacon MD Primary Care Prov ider Encounter Details Date Type Department Care Team ([facility] Contact Info) Description 09/18/2023 Orders Only [facility] MED & PEDS [address] [place], [place] [phone] Sam Bacon MD [address] [place] [address] Social History Tobacco Use Types Packs/Day Years [...] Description 08/08/2024 9:30 AM EST Office Visit [facility] MED & PEDS [address] [place] [address] Sam Bacon MD [address] [place] [address] 10/18/2024 8:00 AM EDT Office Visit [facility] ADULT DENTAL [address] [place] [address] Adolph Cummings documented as of this encounter Visit Diagnoses Not on filedocumented in this encounter Additional Health Concerns Assessment Noted Time PHQ-9 Depression Total Score: 11 024 9:07 AM EDT documented as of this encounter Care Teams Warp Hanger Relationship Specialty Start Date End Date Sam Bacon MD [address] [place] [address] PCP - General Internal Medicine 09/14/23 documented as of this encounter
--- OUTSIDE RECORDS SUMMARY | 2024-08-05 10:57 | XMS_ITS | Encounter Summary ---
Author Organization [employer] Address [address] [facility] 7 [place] [address] Care Team Providers Care Triage Technician Name Role Phone Sam Bacon MD Primary Care Prov ider Reason for Visit * Reason Onset Date Comments Chart Prep 07/17/2024 Encounter Details Date Type Department Care Team ([facility] st Contact Info) Description 07/17/2024 Telephone [facility] CH[facility] MED & PEDS [address] [place] [address] Sam Bacon MD [address] [place] [address] Chart Prep Social History Tobacco Use Types [...] [facility] [address] [place] [address] Sam Bacon MD [address] [place] [address] 10/18/2024 8:00 AM EDT Office Visit [facility] ADULT DENTAL [address] [place] [address] Adolph Cummings documented as of this encounter Visit Diagnoses Not on filedocumented in this encounter Additional Health Concerns Assessment Noted Time PHQ-9 Depression Total Score: 11 024 9:07 AM EDT documented as of this encounter Care Teams Triage Technician Relationship Specialty Start Date End Date Sam Bacon MD [address] [place] [address] PCP - General Internal Medicine 09/14/23 documented as of this encounter
--- OUTSIDE RECORDS SUMMARY | 2024-08-05 10:57 | XMS_ITS | Encounter Summary ---
Author Organization [facility] Address [address] [place] [address] Care Team Providers Care Printed Circuit Boards Router Name Role Phone Sam Bacon Primary Care Provide r Reason for Visit * Reason Onset Date Comments medication clarification 07/24/2024 Encounter Details Date Type Department Care Team ([facility] st Contact Info) Description 07/24/2024 Telephone [facility] - [address] [phone] Lily Sepulveda PA [address] [place] [address] medication clarification Social History Tobacco Use Types [...] Description 08/12/2024 8:50 AM EST Office Visit [facility] Cardiology [facility] [address] [place] [address] Dr [address] [place] [address] Moiz Damon MD [address] [place] [address] Dr Alex [address] [place] [address] 09/24/2024 9:15 AM EDT Office Visit Bariatric Surgery - [place] [address] [phone] Lizz Braden PA [address] [address] 10/23/2024 10:45 AM EDT Office Visit Endocrinology [facility] [address] [place] [phone] Lily Sepulveda PA [address] [place] [address] documented as of this encounter Visit Diagnoses Not on filedocumented in this encounter Care Teams Printed Circuit Boards Router Relationship Specialty Start Date End Date Sam Bacon [address] [place], [place] PCP - General 02/21/24 documented as of this encounter
--- OUTSIDE RECORDS SUMMARY | 2024-08-05 10:57 | XMS_ITS | Clinical Summary ---
Author Organization [address] [place] [address] Address [address] [place] [address] Phone Care Team Providers Care Hydroelectric Plant Operator Name Role Phone Sam Bacon Primary [...] flash glucose scanning reader (FreeStyle Oj 2 [place]) misc 1 Device by Does not apply [...] was hospitalized again in December 2017 at [facility] for chest pain- ruled out with serial cardiac enzymes and again had an unremarkable nremarkable stress test -More recently presented again to [facility] May 2022 with symptoms of atypical [...] pain 10/06/2017 Overview (04/22/2024): [place] 03/17/15 [place] shows right glenoid degenerative subarticular cyst vs screw tracts, 03/17/15 (in [place]) XR = glenoid degenerative subarticular cyst vs screw tracts Vertebral body hemangioma 10/06/2017 Overview (04/22/2024): MRI - L 1 Chronic low back pain 03/17/2017 Overview (04/22/2024): [place]ray 03/17/15 [place] shows lumbar spasm, L3-L4 and L4-L5 DDD with secondary spondylosis at the L3-L4 level MRI lumbar spine 06/30/15 shows early degenerative changes at L4-L55 with decreased signal intesnsity and posterior bulging of annulus fibrosis, no disc extrusions or protrusions are detected. L1 vertebral body hemangioma. 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); Secondary hypertension; Hyperlipidemia, mixed 07/24/2024 Telephone Endocrinology - [place] [address] [place] [address] Lily Sepulveda PA medication clarification 07/10/2024 Telephone [facility] [address] [place] [address] Moiz Damon MD No Call No Show (Letter sent.) 06/18/2024 Telephone [facility] Cardiology [facility] [address] [facility] [address] [place] [phone] Moiz Damon MD 06/11/2024 7:00 AM EST Ancillary Procedure [facility] [address] [place] [phone] Other chest pain 06/06/2024 1:15 PM EST Office Visit Bariatric Surgery - [place] [address] [facility] [address] [place] [address] Lizz Braden PA Class 1 [...] 10/06/2017 DX:Shoulder pain, right; COMMENT: 03/17/15 (in [place]) XR = glenoid degenerative subarticular cyst vs [...] Description 08/12/2024 8:50 AM EST Office Visit [facility] [address] [place] [address] Dr Ari[address] [place] [address] Moiz Damon MD [address] [place] [address] Dr Johnson [address] [place] [address] 09/24/2024 9:15 AM EDT Office Visit Bariatric Surgery - [place] 175 [facility] [address] [place] [address] Lizz Braden PA [address] [place] [address] 10/23/2024 10:45 AM EDT Office Visit Endocrinology [facility] [address] [place] [address] Lily Sepulveda PA [address] [place] [address] Health Maintenance Due Date Last Done Comments [...] LAB CHEMISTRY METHOD 07/24/2024 3:16 PM EST [facility] Triglycerides 76 0 - 150 mg/dL LAB CHEMISTRY METHOD 07/24/2024 3:16 PM EST [facility] HDL 41 >=40 mg/dL LAB CHEMISTRY METHOD 07/24/2024 3:16 PM EST [facility] LDL Calculated 21 0 - 100 mg/dL LAB CHEMISTRY METHOD 07/24/2024 3:16 PM EST [facility] VLDL Cholesterol José Antonio 15.2 mg/dL LAB CHEMISTRY METHOD 07/24/2024 3:16 PM EST [facility] Non HDL Chol. (LDL+VLDL) 36 <145 mg/dL LAB CHEMISTRY METHOD 07/24/2024 3:16 PM EST [facility] Chol/HDL Ratio 1.9 0.0 - 4.4 LAB CHEMISTRY METHOD 07/24/2024 3:16 PM EST [facility] Blood Venous blood specimen / Unknown Venipuncture / Unknown 07/24/2024 10:34 AM EST 07/24/2024 10:34 AM EST Lily ATKINSON LAB BLOOD ORDERABLE S [facility] [address] [place] [address], * (ABNORMAL) Microalbumin creatinine urine ratio (07/24/2024 10:34 AM EST) Creatinine, Urine 306.0 mg/dL LAB CHEMISTRY METHOD 07/24/2024 3:43 PM [facility] Microalb, Ur 115.0(H) 0.0 - 29.0 mg/L LAB CHEMISTRY METHOD 07/24/2024 3:43 PM [facility] Microalb/Crea t Ratio 38(H) <30 mg/g creat LAB CHEMISTRY METHOD 07/24/2024 3:43 PM [facility] Urine Urine specimen from urethra / Unknown Non-blood Collection / Unknown 07/24/2024 10:34 AM EST 07/24/2024 10:34 AM EST Lily ATKINSON LAB URINE ORDERABLE S [facility] [address] [place] [address], [place] [phone] * (ABNORMAL) Hemoglobin A1c (07/24/2024 10:34 AM EST) Hemoglobin A1C 6.8(H) <6.5 % LAB CHEMISTRY METHOD 07/24/2024 2:15 PM [facility] Mean Bld Glu Estim. 148 mg/dL LAB CHEMISTRY METHOD 07/24/2024 2:15 PM [facility] Blood Venous blood specimen / Unknown Venipuncture / Unknown 07/24/2024 10:34 AM EST 07/24/2024 10:34 AM EST Lily ATKINSON LAB BLOOD ORDERABLE S [facility] [address] [place] [address], [place] [phone] * Basic metabolic panel (07/24/2024 10:34 AM EST) Sodium 138 133 - 145 mmol/L LAB CHEMISTRY METHOD 07/24/2024 3:15 PM [facility] Potassium 3.7 3.5 - 5.5 mmol/L LAB CHEMISTRY METHOD 07/24/2024 3:15 PM [facility] Chloride 105 96 - 110 mmol/L LAB CHEMISTRY METHOD 07/24/2024 3:15 PM [facility] CO2 30 21 - 32 mmol/L LAB CHEMISTRY METHOD 07/24/2024 3:15 PM [facility] Anion Gap 3 3 - 11 LAB CHEMISTRY METHOD 07/24/2024 3:15 PM [facility] Glucose 96 70 - 100 mg/dL LAB CHEMISTRY METHOD 07/24/2024 3:15 PM [facility] BUN 17 5 - 25 mg/dL LAB CHEMISTRY METHOD 07/24/2024 3:15 PM [facility] Creatinine 0.79 0.70 - 1.30 mg/dL LAB CHEMISTRY METHOD 07/24/2024 3:15 PM [facility] eGFR 109 >=60 mL/min/1. 73m2 LAB CHEMISTRY METHOD 07/24/2024 3:15 PM [facility] Comment:Calculation based on the??Chronic Kidney Disease Epidemiology Collaboration (CKD-EPI) equation refit??without adjustment for race. BUN/Creatinine Ratio 21.5 LAB CHEMISTRY METHOD 07/24/2024 3:15 PM [facility] Calcium 9.6 8.5 - 10.5 mg/dL LAB CHEMISTRY METHOD 07/24/2024 3:15 PM [facility] Blood Venous blood specimen / Unknown Venipuncture / Unknown 07/24/2024 10:34 AM EST 07/24/2024 10:34 AM EST Lily ATKINSON LAB BLOOD ORDERABLE S [facility] [address] [place] [address], * (ABNORMAL) TRANSTHORACIC ECHOCARDIOGRAM (TTE) COMPLETE W/ [...] 52 mL CV PACS Left [facility] Minor Marshall 5.3 cm CV PACS Left [facility] Major Marshall 5.2 cm CV PACS [place] Area Sys [...] PROCED URES * Diabetes Eye Exam (01/15/2024) [facility] Diabetes: Annual Retina Eye Exam ABSTRACTED Historical Provider MD SABRINA BOYER E * HIV Screening (01/29/2021) [facility] HIV Screening ABSTRACTED Historical Provider MD SABRINA Baeza * Hepatitis C Screening (01/29/2021) [facility] Hepatitis C Screening ABSTRACTED Historical Provider MD SABRINA Baeza from Last 3 Months or Most Recently Relevant to Health Maintenance Care Teams Hydroelectric Plant Operator Relationship Specialty Start Date End Date Sam Bacon [address] [place] [address] PCP - General 02/21/24
--- OUTSIDE RECORDS SUMMARY | 2024-08-05 10:57 | XMS_ITS | Encounter Summary ---
Author Organization [employer] Address [address] [facility] 7t [place] [address] Care Team Providers Care Foot Miter Operator Name Role Phone Sam Bacon MD [...] 9:30 AM EST Office Visit [facility] MED & PEDS [address] [place] [address] Sam Bacon MD [address] [place] [address] 10/18/2024 8:00 AM EDT Office Visit [facility] ADULT DENTAL [address] [place] [address] Adolph Cummings documented as of this encounter Visit Diagnoses Not on filedocumented in this encounter Additional Health Concerns Assessment Noted Time PHQ-9 Depression Total Score: 11 024 9:07 AM EDT documented as of this encounter Care Teams Foot Miter Operator Relationship Specialty Start Date End Date Sam Bacon MD [address] [place] [address] PCP - General Internal Medicine 09/14/23 documented as of this encounter
[2024-08-05 14:34] LABS: Appearance Urine Clear; Color Urine Dark Yellow; Glucose Urine UA 250 mg/dL (Negative); Leukocyte Esterase Urine Negative (Negative); Nitrite Urine Negative (Negative); Specific Gravity - Urine >= 1.030 (1.005-1.025); UMIC TRIGGER UACC YES; Urine Blood Negative (Negative); Urine Ketones Trace mg/dL (Negative); Urine Protein 30 (1+) mg/dL (Neg-Trace)
[2024-08-05 14:37] LABS: Bacteria Urine None Seen (None Seen); Hyaline Casts Urine 0-2 /LPF (0-2); RBC Urine 0-2 /HPF (0-2); Squamous Epithelial Cell Urine 0-2 /HPF (0-2); WBC Urine 0-5 /HPF (0-5)
== END 2024-08-05 10:15 | disposition home or self-care (01) ==
LOC: HO.CHCLDS 10:14
PROVIDERS: Visit Provider Internal Medicine
DX: R30.0 Dysuria (principal)
CPT/HCPCS: 81001

== ENCOUNTER 2025-02-19 15:17 | Outpatient (REF) | payer MEDICARE, SELFPAY ==
--- OUTSIDE RECORDS SUMMARY | 2025-02-19 16:15 | XMS_ITS | Clinical Summary ---
Author Organization [facility] Address [address] [place] [address] Care Team Providers Care Case Loader Operator Name Role Phone Pcp, No MD Primary [...] Vaccine (1 - 2023-2 5 season) 2024 Pneumococcal Vaccine, 50+ Ye ars (1 of 1 - PCV) 2025 Zoster Vaccines (1 of 2) 2025 Influenza Vaccine (#1) 2025 HPV Vaccines Aged Out No longer [...] OUT OF STATE MEDICARE [place] [address] Care Teams Case Loader Operator Relationship Specialty Start Date End Date Amelia Romo MD [address] [place] [address] PCP - General Internal Medicine 06/20/18
--- OUTSIDE RECORDS SUMMARY | 2025-02-19 16:15 | XMS_ITS | Encounter Summary ---
Author Organization [facility] Address [address] [address] Phone Care Team Providers Care Commissioner Of Relocation Services Name Role Phone Sam Goldberg Primary Care Provider [phone] Encounter Details Date Type Department Care Team (Late Contact Info) Description 01/13/2025 Office Communication [facility] [address] [address] Vilma Orr ARNP [address] [address] Social History Tobacco Use Types Packs/Day Years Used Date Smoking Tobacco: Former Cigarettes Smokeless Tobacco: Never Alcohol Use Standard Drinks/Week Comments Not Currently 0 (1 standard drink = 0.6 oz pur e alcohol) Sex and Gender Information Value Date Recorded Sex Assigned at Not on file Legal Sex Male 1:07 PM EDT Gender Identity Not on file Sexual Orientation Not on file documented as of this encounter Plan of Treatment Upcoming Encounters Date Type Department Care Team (Late st Contact Info) Description 04/15/2025 1:30 PM EDT Office Visit [facility] [address] [address] Javier Rodrigues MD [address] [address] documented as of this encounter Visit Diagnoses Not on filedocumented in this encounter Care Teams Commissioner Of Relocation Services Relationship Specialty Start Date End Date Sam Goldberg [address] [place] [address] PCP - General Internal Medicine 12/05/24 documented as of this encounter
--- OUTSIDE RECORDS SUMMARY | 2025-02-19 16:15 | XMS_ITS | Clinical Summary ---
Author Organization [address] [facility] Address [address] [place] [address] Phone Care Team Providers Care Body Shop Worker Name Role Phone Sam Bacon Primary Care Provide r Allergies Active Allergy Reactions Criticality Noted Date Comments Shellfish Containing Products Anaphylaxis High 10/06 Shrimp Other Low 01/19/2023 Medications aspirin 81 mg EC tablet Take 1 tablet (81 mg total) by mouth 1 (one) time each day. 04/03/20 24 Active irbesartan (AVAPRO) 300 mg tablet Take 1 tablet (300 mg total) by mouth 1 (one) time each day. 03/20/20 24 Active zolpidem (AMBIEN) 10 mg tablet Take 1 Tablet by mouth at bedtime. 02/28/20 24 Active triamcinolone (KENALOG) 0.1 % cream 12/07/19 24 Active rosuvastatin (CRESTOR) 40 mg tablet Take 1 tablet (40 mg total) by mouth 1 (one) time each day. 02/28/20 24 Active chlorthalidone (HYGROTON) 25 mg tablet Take 1 tablet (25 mg total) by mouth 1 (one) time each day. 02/28/20 24 Active lancets lancets USE TO CHECK BS 3 TIMES A DAY 02/27/20 24 Active flash glucose scanning reader (FreeStyle Oj 2 [place]) misc 1 Device by Does not apply route daily. 09/16/19 23 Active blood-glucose meter kit 1 Device by Does not apply route daily. 09/01/19 23 Active insulin syringe-needle U-100 1 mL 29 gauge x 1/2 syringe Use to administer Insulin 4-5 injections daily 07/28/19 22 Active pregabalin (LYRICA) 150 mg capsule Route: Take 1 capsule by mouth 2 times daily for 180 days. - Oral 12/29/19 21 Active buPROPion XL (WELLBUTRIN XL) 300 mg 24 hr tablet Route: Take 300 mg by mouth every morning. - Oral Active EPINEPHrine (EpiPen 2-Billy) 0.3 mg/0.3 mL injection Inject as directed. Active lithium 300 mg tablet Route: Take 2 Tabs by mouth 2 times daily. - Active semaglutide (Ozempic) 1 mg/dose (4 mg/3 mL) injection pen Inject 1 mg into the skin every 7 days. 3 mL 07/24/19 Active Farxiga 10 mg tablet TAKE 1 TABLET BY MOUTH DAILY. 90 tablet 1 08/21/19 25 Active Pure Comfort Safety Lancets 30 gauge misc USE TO CHECK BLOOD SUGAR 3 TIMES A DAY 100 each 9 09/11/19 25 Active insulin aspart (NovoLOG Flexpen U-100 Insulin) 100 unit/mL (3 mL) injection penIndications:Mel betes mellitus type 2 with neurological manifestations ([facility] V24, CMS/[facility] V28) INJECT UNDER THE SKIN THREE TIMES DAILY BEFORE MEALS PER SCALE: 70-119:12U, 120-169:17U, 170-219:20U, 220-269:22U, 270-319:23U, 320-369:24U, >370:25U AND CALL MD, plus 2 more units at dinner 45 mL 3 10/24/19 25 Active blood-glucose sensor (FreeStyle Oj 3 Plus Sensor) deviceIndications: Diabetes mellitus type 2 with neurological manifestations (CMS/HCC V24, CMS/HCC V28) Use to check BS every 15 days 2 each 12/06/19 25 Active pen needle, diabetic 32 gauge x needleIndications: Diabetes mellitus type 2 with neurological manifestations (CMS/HCC V24, CMS/[facility] V28) USE 5 TIMES A DAY WITH INSULIN 500 each 3 12/06/19 25 Active insulin glargine (Lantus Solostar U-100 Insulin) 100 unit/mL (3 mL) injection penIndications:Mel betes mellitus type 2 with neurological manifestations ([facility] V24, CMS/[facility] V28) INJECT 30 UNITS TWICE A DAY 100 mL 3 12/06/19 25 Active Additional Information Patient taking differently: INJECT 42 UNITS TWICE A DAY, Reported on 12/25/2024 flash glucose sensor (FreeStyle Oj 2 Sensor) kit Box = Kit = EA1 Device by Does not apply route every 14 days. 6 each 1 12/13/19 25 Active clonazePAM (KlonoPIN) 2 mg tablet Take 1 tablet (2 mg total) by mouth 2 (two) times a day. Max Daily Amount: 4 mg Active diclofenac (VOLTAREN) 1 % topical gel Apply topically 3 (three) times a day. Active diphenhydrAMINE (BENADRYL) 25 mg tablet Take 1 tablet (25 mg total) by mouth every 6 (six) hours. Active fluticasone propionate (FLONASE) 50 mcg/actuation nasal spray Administer 1-2 sprays into each nostril 1 (one) time each day. Shake gently. Before first use, prime pump. After use, clean tip and replace cap. Active metoprolol succinate (TOPROL-XL) 100 mg 24 hr tablet Take 1 tablet (100 mg total) by mouth 1 (one) time each day. Do not crush or chew. Active OLANZapine (ZyPREXA) 10 mg tablet 1 tablet (10 mg total) at bedtime. Active omeprazole OTC (PriLOSEC OTC) 20 mg EC tablet Take 1 tablet (20 mg total) by mouth 1 (one) time each day. Do not crush, chew, or split. Active hydrALAZINE (APRESOLINE) 50 mg tablet Take 1 tablet (50 mg total) by mouth 3 (three) times a day. 12/26/19 25 Active amLODIPine (NORVASC) 5 mg tablet Take 1 tablet (5 mg total) by mouth 1 (one) time each day. 90 tablet 1 12/26/19 25 Active spironolactone (ALDACTONE) 50 mg tablet Take 1 tablet (50 mg total) by mouth 1 (one) time each day. 90 tablet 1 12/26/19 25 Active multivitamin tablet Take 1 tablet by mouth 1 (one) time each day. 30 each 12/27/19 25 026 Active blood sugar diagnostic (FreeStyle Lite Strips) test strip USE TO CHECK BLOOD SUGAR 3 TIMES A DAY 100 each 11 01/16/20 25 Active polyethylene glycol (MIRALAX) 17 gram packet Take 17 g by mouth 1 (one) time each day. 510 g 12/27/19 25 025 Active Problems Problem Noted Date Diagnosed Date Renal artery stenosis ([facility] V24) 09/12/2024 Assessment & Plan (12/25/2024 3:55 PM EDT): Patient was referred to nephrology for renal artery stenosis and resistant hypertension. Currently he is doing well and no intervention was indicated. Assessment & Plan (11/13/2024 11:57 AM EDT): Patient was referred to nephrology for renal artery stenosis and resistant hypertension. Currently he is doing well and no intervention was indicated. Assessment & Plan (09/12/2024 8:23 AM EDT): Renal artery duplex as outlined below showed greater than 60% stenosis in the right mid renal artery. The patient is also on multiple antihypertensive medications. As such, will refer to nephrology for further evaluation. Orders: Ambulatory referral to Nephrology; Future Class 1 obesity due to exces s calories with serious comorbidity and body mass index (BMI) of 31.0 to 31.9 in adult 04/22/2024 Palpitations 03/20/2024 Assessment & Plan (12/25/2024 3:55 PM EDT): Palpitations are well controlled with present dose of metoprolol. No changes today. Assessment & Plan (11/13/2024 11:57 AM EDT): Patient has history of palpitations with PVC burden of 0.2% in the past. Patient had been on metoprolol in the past but he has not taken this since last year. He was previously on 100 mg daily. He continues to report daily palpitations. I will restart metoprolol at a lower dose of 25 mg twice daily. I will see him back in approximately 6 weeks to evaluate if his palpitations improve and to titrate up his dose if necessary. Assessment & Plan (09/12/2024 8:23 AM EDT): The patient had been reporting episodes of palpitations. He underwent a 48-hour Holter monitor which showed normal sinus rhythm with periods of sinus tachycardia with an average heart rate of 103 bpm. Rare PACs occasional PVCs with aberrant beats. EKG during times of symptoms showed sinus rhythm with isolated PVCs. PVC burden 0.2%. We discussed these results in depth today. We discussed the triggers of palpitations and tachycardia and it appears the patient is consuming large amounts of caffeine and will work on reducing the amount that he is not taking. We reviewed the possible triggers of palpitations including caffeine consumption, alcohol consumption, cigarette smoking, inadequate sleeping patterns, and stress. At this point, the patient will attempt to avoid the usual triggers. 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 Diabetes mellitus type 2 wit h neurological manifestations ([facility] V24, [facility] V28) 11/28/2017 Depression 10/24/2017 Balanitis 10/06/2017 Overview (04/22/2024): Uncircumcised. Urology referral Cervicalgia 10/06/2017 Hyperlipidemia, mixed 10/06/2017 Assessment & Plan (12/25/2024 3:55 PM EDT): Patient continues on statin therapy. Lipids are under excellent control. Assessment & Plan (11/13/2024 11:57 AM EDT): Patient continues on statin therapy. Lipids are under excellent control. Hypertension 10/06/2017 Assessment & Plan (12/25/2024 3:55 PM EDT): Patient is history of hypertension and is on multiple antihypertensive medical therapies therefore meeting criteria for resistant hypertension. He underwent further evaluation for pheochromocytoma with laboratory testing which was noted to be unremarkable. He had a renal artery duplex which showed greater than 60% stenosis in the right mid renal artery however RAR was less than 3.5 and less than 60% stenosis in the proximal or distal renal artery. There is less than 60% in the left renal artery. Resistant index was greater than 0.7 suggesting intrinsic renal disease as well. We have made some medication changes the last couple visits however it turns out that the patient was not keeping an accurate medication list and therefore we were making changes but we did not have accurate information. Nonetheless, his BP is well controlled. No changes today. Assessment & Plan (11/13/2024 11:57 AM EDT): Patient has history of hypertension and is on multiple antihypertensive medical therapies, therefore meeting criteria for resistant hypertension. He underwent further evaluation for pheochromocytoma and his laboratory testing was noted to be unremarkable. He underwent a renal artery duplex which showed greater than 60% stenosis in the right mid renal artery however RAR was less than 3.5 and less than 60% stenosis in the proximal or distal renal artery. There was less then 60% in the left renal artery. Resistant index was greater than 0.7 suggesting intrinsic renal disease as well. At his last office visit amlodipine was increased to 10 mg daily and his blood pressure has improved significantly. Blood pressure today 108/64. He will continue with his present doses of amlodipine, chlorthalidone, hydralazine, metoprolol and spironolactone. He continues to follow with nephrology. Assessment & Plan (09/12/2024 8:23 AM EDT): The patient has a history of hypertension and is taking multiple antihypertensive medications, therefore meets criteria for resistant hypertension. He did undergo evaluation for secondary causes of hypertension including pheochromocytoma laboratory testing which was noted to be unremarkable. He also underwent a renal artery duplex which showed greater than 60% stenosis in the right mid renal artery however RAR was less than 3.5 and less than 60% stenosis in the proximal or distal renal artery. Less than 60% stenosis in the left renal artery. Resistive index was greater than 0.7 suggesting intrinsic renal disease as well. Recommend he be evaluated by nephrology for further evaluation. The patient agrees with this plan. On the other hand, the patient's blood pressure is elevated today and has been elevated at home as well. When review of chart, his blood pressures have also been elevated at primary care appointments. Recommend he increase his amlodipine from 5 mg orally daily to 10 mg orally daily for better blood pressure control. He will continue to monitor his blood pressures at home and keep a blood pressure log and notify me if they still remain elevated despite this change. In the meantime, he will continue on chlorthalidone, hydralazine, metoprolol and spironolactone as well. Orders: amLODIPine (Norvasc) 10 mg tablet; Take 1 tablet (10 mg total) by mouth 1 (one) time each day. Hypokalemia 10/06/2017 Right shoulder pain 10/06/2017 Overview (04/22/2024): [place] 03/17/15 [place] shows right glenoid degenerative subarticular cyst vs screw tracts, 03/17/15 (in [place]) XR = glenoid degenerative subarticular cyst vs screw tracts Vertebral body hemangioma 10/06/2017 Overview (04/22/2024): MRI - L 1 Chronic low back pain 03/17/2017 Overview (04/22/2024): [place] 03/17/15 [place] shows lumbar spasm, L3-L4 and L4-L5 DDD with secondary spondylosis at the L3-L4 level MRI lumbar spine 06/30/15 shows early degenerative changes at L4-L55 with decreased signal intesnsity and posterior bulging of annulus fibrosis, no disc extrusions or protrusions are detected. L1 vertebral body hemangioma. Encounters Date Type Department Care Team Description 01/13/2025 Telephone Endocrinology - [facility] [address] [place] [address] Lily Sepulveda PA Medication Problem (Freestyle oj 3 sensors) 12/26/2024 8:45 AM EDT Office Visit Bariatric Surgery - [address] [place] [address] Lizz Braden PA Overweight (BMI 25.0-29.9) (Primary Dx) 12/25/2024 3:10 PM EDT Office Visit [facility] [address] [place] [address] Anum Meredith NP Renal artery stenosis (CMS/HCC V24) (Primary Dx); Palpitations; Primary hypertension; Hyperlipidemia, mixed from Last 3 Months Immunizations Name Administration [...] 10/06/2017 DX:Shoulder pain, right; COMMENT: 03/17/15 (in [place]) XR = glenoid degenerative subarticular cyst vs screw tracts Vertebral body hemangioma 10/06/2017 DX:Ivanna tebral body hemangioma; COMMENT: MRI - L 1 Depression 10/24/2017 DX:Depression Diabetes mellitus type 2, uncomplicated (CMS/HCC V24, CMS/HCC V28) 10/06/2017 DX:Diabetes mellitus type 2, uncomplicated ([facility]) GERD (gastroesophageal reflu x disease) 01/31/2021 DX:GERD [...] Assigned at Male 06/17/2024 1:31 PM EST Legal Sex Male 2:07 AM EST Gender Identity Male 06/17/2024 1:31 PM EST Sexual Orientation Not on file Obstetrics History Last Filed Vital Signs Vital Sign Reading Time Taken Comments Blood Pressure 134/86 12/26/2024 8:44 AM EDT Pulse 88 12/26/2024 8:44 AM EDT Temperature 36.5 C (97.7 F) 12/26/2024 8:44 AM EDT Respiratory Rate - - Oxygen Saturation 98% 12/25/2024 2:57 PM EDT Inhaled Oxygen Concentration - - Weight 83.5 kg (184 lb) 12/26/2024 8:44 AM EDT Height 172.7 cm (5' 8 ) 12/26/2024 8:44 AM EDT Body Mass Index 27.98 12/26/2024 8:44 AM EDT Plan of Treatment Upcoming Encounters Date Type Department Care Team (Late st Contact Info) Description 04/24/2025 8:30 AM EDT Office Visit Endocrinology [address] [address] Lily Sepulveda PA [address] [place] [address] 07/07/2025 8:00 AM EST Office Visit Bariatric Surgery - [facility] [address] [place] [phone] Lizz Braden PA [address] [place] [address] Health Maintenance Due Date Last Done Comments Diabetes: Annual Foot Exam 1985 Hepatitis B Vaccines (1 of 3 - 19+ 3-dose series) 1994 Colorectal Cancer Screening: Colonoscopy 06/11/2022 Medicare Annual Wellness Visit 06/11/2022 Social Influencers of Health Screening 06/11/2022 Depression Screening 07/03/2024 Diabetes: Annual Retina Eye Exam 01/14/2025 01/15/2024 Zoster Vaccines (1 of 2) 2025 Influenza Vaccine (#1) 2025 , 04/01/2022, 04/14/2020, Additional history exists Diabetes: Blood Sugar Control Test (HGBA1C) 04/24/2025 10/23/2024, 07/24/2024, 07/18/2024, Additional history exists Diabetes: Annual GFR (Glomerular Filtration Rate) 07/24/2025 07/24/2024, 10/19/2023 Hypertension/CHF/CAD Annual BMP Blood Test 07/24/2025 07/24/2024, 10/19/2023 Diabetes: Annual Urine Albumin-Creatinine Ratio (uACR) 12/09/2025 12/09/2024, 07/24/2024, 10/19/2023 Cholesterol Screening (Lipid Panel) 07/24/2029 07/24/2024, 11/09/2023, 10/19/2023 DTaP,Tdap,and Td Vaccines (3 - Td or Tdap) 09/13/2033 09/14/2023, 01/29/2021 HIV Screening Completed 01/29/2021 Hepatitis C Screening Completed 09/14/2023, 021 Pneumococcal Vaccine: 50+ Years Completed 07/18/2024, 10/24/2017 COVID-19 Vaccine Completed 08/02/2024, , 06/10/2021 HIB Vaccines Aged Out No longer eligi [...] patient's age to complete this topic Meningococcal B Vaccine Aged Out No l onger eligible based on patient's age to complete this topic RSV Immunization Patients Under 20 months Aged Out No longer eligible based on patient's age to complete this topic Varicella Vaccines Aged Out No longer eligible based on patient's age to complete this topic Procedures Procedure Name Priority Date/Time Associated Diagnosis Comments ECG 12-LEAD Routine 12/25/2024 4:11 PM EDT Renal artery stenosis ([facility] V24) Palpitations Primary hypertension HEMOGLOBIN A1C Routine 10/23/2024 11:27 AM EDT Diabetes mellitus type 2 with neurological manifestations (CMS/HCC V24, CMS/HCC V28) MICROALBUMIN CREATININE URINE RATIO Routine 07/24/2024 10:34 AM EST 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 (CMS/HCC V24, CMS/HCC V28) BASIC METABOLIC PANEL Routine 07/24/2024 10:34 AM EST 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 (CMS/HCC V24, CMS/HCC V28) LIPID PANEL WITH REFLEX TO DIRECT LDL Routine 07/24/2024 10:34 AM EST 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 (CMS/HCC V24, CMS/HCC V28) DIABETES EYE EXAM Routine 01/15/2024 HEPATITIS C SCREENING Routine 01/29/2021 HIV SCREENING Routine 01/29/2021 from Last 3 Months or Most Recently Relevant to Health Maintenance Results * ECG 12 lead (12/25/2024 4:11 PM EDT) Ventricular Rate ECG 81 BPM GEMUSE Atrial Rate 81 BPM GEMUSE P-R Interval 144 ms GEMUSE QRS Duration 100 ms GEMUSE Q-T Interval 360 ms GEMUSE QTc 418 ms GEMUSE P Wave Caroleen 37 degrees GEMUSE R Caroleen 90 degrees GEMUSE T Caroleen 15 degrees GEMUSE ECG Interpretation Normal sinus rhythm Rightward axis Borderline ECG When compared with ECG of 27-DEC-2023 08:57, Criteria for Inferior infarct are no longer Present Confirmed by ROBERT MORGAN ([id number]) on 12/29/2024 7:19:45 PM GEMUSE 12/25/2024 3:13 PM EDT 12/29/2024 7:19 PM EDT us Anum Meredith PHOTOENGRAVER APPRENTICE ECG ORDERABLES Edited Resul t - Final Performing Organization Address City/[facility]/ZIP Co de Phone Number LUIS ANGELUSE * (ABNORMAL) Hemoglobin A1c (10/23/2024 11:27 AM EDT) Pathologist [facility] Hemoglobin A1C 6.5(H) <6.5 % LAB CHEMISTRY METHOD 10/23/2024 8:02 PM EDT [facility] Mean Bld Glu Estim. 140 mg/dL LAB CHEMISTRY METHOD 10/23/2024 8:02 PM EDT [facility] Blood Venous blood specimen / Unknown Venipuncture / Unknown 10/23/2024 11:27 AM EDT 10/23/2024 11:27 AM EDT us Lily ATKINSON LAB BLOOD ORDERABLES Final Result [facility] [address] [place] [address], [place] [phone] * Lipid panel with reflex to direct LDL (07/24/2024 10:34 AM EST) Cholesterol 77 0 - 200 mg/dL LAB CHEMISTRY METHOD 07/24/2024 3:16 PM EST [facility] Triglycerides 76 0 - 150 mg/dL LAB CHEMISTRY METHOD 07/24/2024 3:16 PM EST [facility] HDL 41 >=40 mg/dL LAB CHEMISTRY METHOD 07/24/2024 3:16 PM EST [facility] LDL Calculated 21 0 - 100 mg/dL LAB CHEMISTRY METHOD 07/24/2024 3:16 PM [facility] VLDL Cholesterol José Antonio 15.2 mg/dL LAB CHEMISTRY METHOD 07/24/2024 3:16 PM [facility] Non HDL Chol. (LDL+VLDL) 36 <145 mg/dL LAB CHEMISTRY METHOD 07/24/2024 3:16 PM [facility] Chol/HDL Ratio 1.9 0.0 - 4.4 LAB CHEMISTRY METHOD 07/24/2024 3:16 PM [facility] Blood Venous blood specimen / Unknown Venipuncture / Unknown 07/24/2024 10:34 AM EST 07/24/2024 10:34 AM EST Lily ATKINSON LAB BLOOD ORDERABLES Final Result [facility] [address] [place] [address], * (ABNORMAL) Microalbumin creatinine urine ratio (07/24/2024 10:34 AM EST) Creatinine, Urine 306.0 mg/dL LAB CHEMISTRY METHOD 07/24/2024 3:43 PM [facility] Microalb, Ur 115.0(H) 0.0 - 29.0 mg/L LAB CHEMISTRY METHOD 07/24/2024 3:43 PM [facility] Microalb/Crea t Ratio 38(H) <30 mg/g creat LAB CHEMISTRY METHOD 07/24/2024 3:43 PM [facility] Urine Urine specimen from urethra / Unknown Non-blood Collection / Unknown 07/24/2024 10:34 AM EST 07/24/2024 10:34 AM EST us Lily ATKINSON LAB URINE ORDERABLES Final Result [facility] [address] [place] [address], * Basic metabolic panel (07/24/2024 10:34 AM EST) Sodium 138 133 - 145 mmol/L LAB CHEMISTRY METHOD 07/24/2024 3:15 PM [facility] Potassium 3.7 3.5 - 5.5 mmol/L LAB CHEMISTRY METHOD 07/24/2024 3:15 PM [facility] Chloride 105 96 - 110 mmol/L LAB CHEMISTRY METHOD 07/24/2024 3:15 PM [facility] CO2 30 21 - 32 mmol/L LAB CHEMISTRY METHOD 07/24/2024 3:15 PM [facility] Anion Gap 3 3 - 11 LAB CHEMISTRY METHOD 07/24/2024 3:15 PM [facility] Glucose 96 70 - 100 mg/dL LAB CHEMISTRY METHOD 07/24/2024 3:15 PM [facility] BUN 17 5 - 25 mg/dL LAB CHEMISTRY METHOD 07/24/2024 3:15 PM [facility] Creatinine 0.79 0.70 - 1.30 mg/dL LAB CHEMISTRY METHOD 07/24/2024 3:15 PM [facility] eGFR 109 >=60 mL/min/1. 73m2 LAB CHEMISTRY METHOD 07/24/2024 3:15 PM [facility] Comment:Calculation based on the Chronic Kidney Disease Epidemiology Collaboration (CKD-EPI) equation refit without adjustment for race. BUN/Creatinine Ratio 21.5 LAB CHEMISTRY METHOD 07/24/2024 3:15 PM [facility] Calcium 9.6 8.5 - 10.5 mg/dL LAB CHEMISTRY METHOD 07/24/2024 3:15 PM EST [facility] Blood Venous blood specimen / Unknown Venipuncture / Unknown 07/24/2024 10:34 AM EST 07/24/2024 10:34 AM EST Lily ATKINSON LAB BLOOD ORDERABLES Final Result [facility] [address] [place] [address], * Diabetes Eye Exam (01/15/2024) Pathologist [facility] Diabetes: Annual Retina Eye Exam ABSTRACTED Historical Provider MD HEALTH MAINTENANCE Final Result * HIV Screening (01/29/2021) [facility] HIV Screening ABSTRACTED [facility] Provider MD HEALTH MAINTENANCE Final Result * Hepatitis C Screening (01/29/2021) Pathologist [facility] Hepatitis C Screening ABSTRACTED Historical Provider MD HEALTH MAINTENANCE Final Result from Last 3 Months or Most Recently Relevant to Health Maintenance Insurance [employer] MEDICARE Member Subscriber Plan / Payer (Ef fective 2019-Present) Name:JUANI FIGUEROA Relation to Subscriber:Self Name:Juani Figueroa R Payer ID:[id number] Group ID:[id number] Type:Not on file Address: [address] [facility] [place] [id number] Care Teams Body Shop Worker Relationship Specialty Start Date End Date Sam Bacon [address] [place], [place] PCP - General 02/21/24
--- OUTSIDE RECORDS SUMMARY | 2025-02-19 16:15 | XMS_ITS | Encounter Summary ---
Author Organization [employer] Address [address] [facility] 7t [place] [address] Care Team Providers Care Copier Operator Name Role Phone Sam Bacon MD Primary Care Prov ider Encounter Details Date Type Department Care Team ([facility] Contact Info) Description 09/18/2023 Orders Only [facility] MED & PEDS [address] [place], [place] [phone] Sam Bacon MD [address] [place] [address] Social History Tobacco Use Types Packs/Day Years [...] Care Team (Late st Contact Info) Description 03/27/2025 10:15 AM EDT Office Visit [facility] MED & PEDS [address] [place] [address] Sam Bacon MD [address] [place] [address] 04/18/2025 8:00 AM EDT Office Visit [facility] ADULT DENTAL [address] [place] [address] Adolph Cummings documented as of this encounter Visit Diagnoses Not on filedocumented in this encounter Additional Health Concerns Assessment Noted Time PHQ-9 Depression Total Score: 11 024 9:07 AM EDT documented as of this encounter Care Teams Copier Operator Relationship Specialty Start Date End Date Sam Bacon MD [address] [place] [address] PCP - General Internal Medicine 09/14/23 documented as of this encounter
--- OUTSIDE RECORDS SUMMARY | 2025-02-19 16:15 | XMS_ITS | Clinical Summary ---
Author Organization [facility] Address [address] [place] [address] Care Team Providers Care Investment Analyst Name Role Phone Unavailable Primary Care Provider [...] complication, without long-term current use of insulin ([facility]) Test blood sugars TID w/meals DX: [...] polyneuropathy, with long-term current use of insulin ([facility]) Test blood sugars TID w/meals DX: E11.65 Accu-chek sesar plus test stripes 100 Each 11 11/29/19 18 Active lancets (ACCU-CHEK FASTCLIX)Indicatio ns:Type 2 diabetes mellitus with diabetic polyneuropathy, with long-term current use of insulin ([facility]) Test blood sugars TID w/meals DX: E11.65 accu chek fastclix lancets 100 Each 11 11/29/19 18 Active metFORMIN (GLUCOPHAGE) 1,000 mg tabletIndications: Type 2 diabetes mellitus with diabetic polyneuropathy, with long-term current use of insulin ([facility]) Take 1 Tab by mouth 2 (two) times daily with a meal 60 Tab 5 11/29/19 18 Active dapagliflozin 5 mg tabIndications:Typ e 2 diabetes mellitus with diabetic polyneuropathy, with long-term current use of insulin ([facility]) Take 5 mg by mouth once daily 30 Tab 5 11/29/19 18 Active gabapentin (NEURONTIN) 600 mg tabletIndications: Type 2 diabetes mellitus with diabetic polyneuropathy, with long-term current use of insulin ([facility]) Take 1 Tab by mouth once daily [...] polyneuropathy, with long-term current use of insulin ([facility]) Inject 55 Units into the skin once [...] E11.65 FREESTYLE LITE test stripes 100 Each 12/05/19 18 Active lancets (FREESTYLE LANCETS) 28 gauge 3 (three) times daily Test blood sugars TID w/meals DX: E11.65 FREESTYLE lancets 100 Each 12/05/19 18 Active insulin syringe-needle U-100 1 mL 31 gauge x 16 Inject insulin QID E11.65 200 Syringe 11 01/25/20 18 Active NOVOLOG U-100 INSULIN ASPART 100 unit/mL injectionIndicatio ns:Type 2 diabetes mellitus with diabetic polyneuropathy, with long-term current use of insulin ([facility]) INJECT UNDER THE SKIN THREE TIMES DAILY [...] Active Problems Problem Noted Date Diagnosed Date fall03/21/2017 Overview (03/21/2017): 03/17/17 [facility] Xray cervical spine WNL, lumbar spine WNL, pelvis WNL Type 2 diabetes mellitus wit h complication, without long-term current use of insulin ([facility]) 03/17/2017 Uncircumcised male 03/17/2017 Chronic left-sided low back pain 03/17/2017 Overview (03/17/2017): Xray 03/17/15 in [place] shows lumbar spasm, L3-L4 and L4-L5 DDD with secondary spondylosis at the L3-L4 level MRI lumbar spine 12/29/15 shows early degenerative changes at L4-L55 with decreased signal intesnsity and posterior bulging of annulus fibrosis, no disc extrusions or protrusions are detected. L1 vertebral body hemangioma. Cervicalgia 03/17/2017 Hypokalemia 03/17/2017 Right shoulder pain 03/17/2017 Overview (03/17/2017): Xrau 03/17/15 in [place] shows right glenoid degenerative subarticular cyst vs screw tracts, Chest pain 03/17/2017 Overview (03/17/2017): 03/28/16 Treadmill stress test in [place] clinically positive for ischemia. SPECT study shows normal myocardial perfusion, normal LV EF Seafood allergy 03/15/2017 Essential hypertension, benign 01/05/2017 Immunizations Immunization Administration Dates Next Due Flu, Preservative Free [...] 78 11/28/2017 8:53 AM EDT Temperature 36.8 C (98.2 F) 11/28/2017 8:53 AM EDT Respiratory Rate 16 11/28/2017 8:53 AM EDT Oxygen Saturation - - Inhaled Oxygen Concentration - - Weight 100.7 kg (222 lb) 11/29/2017 11:16 AM EDT Height 170.2 cm (5' 7 ) 11/29/2017 11:16 AM EDT Body Mass Index 34.77 11/29/2017 11:16 AM EDT Plan of Treatment Not on file Insurance [facility] [place] [facility]
== END 2025-02-19 15:18 | disposition home or self-care (01) ==
LOC: HO.CHCLDS 15:17
PROVIDERS: Visit Provider Internal Medicine
DX: Z13.89 Encounter for screening for other disorder (principal)

== ENCOUNTER 2025-02-24 09:30 | Outpatient (REF) | payer OTHER, SELFPAY ==
--- OUTSIDE RECORDS SUMMARY | 2025-02-24 10:18 | XMS_ITS | Clinical Summary ---
Author Organization [facility] Address [address] [place] [address] Phone Care Team Providers Care Technical Spec Name Role Phone Sam Bacon Primary Care [...] flash glucose scanning reader (FreeStyle Oj 2 [place]) misc 1 Device by Does not apply [...] betes mellitus type 2 with neurological manifestations ([facility] V24, CMS/[facility] V28) INJECT UNDER THE SKIN THREE TIMES [...] type 2 with neurological manifestations (CMS/HCC V24, CMS/[facility] V28) USE 5 TIMES A DAY WITH INSULIN 500 each 3 12/06/19 25 Active insulin glargine (Lantus Solostar U-100 Insulin) 100 unit/mL (3 mL) injection penIndications:Mel betes mellitus type 2 with neurological manifestations ([facility] V24, [facility] V28) INJECT 30 UNITS TWICE A DAY [...] Noted Date Diagnosed Date Renal artery stenosis ([facility] V24) 09/12/2024 Assessment & Plan (12/25/2024 3:55 [...] was hospitalized again in December 2017 at [facility] for chest pain- ruled out with serial cardiac enzymes and again had an unremarkable nremarkable stress test -More recently presented again to [facility] May 2022 with symptoms of atypical [...] mellitus type 2 wit h neurological manifestations ([facility] V24, [facility] V28) 11/28/2017 Depression 10/24/2017 Balanitis 10/06/2017 Overview [...] pain 10/06/2017 Overview (04/22/2024): Xrau 03/17/15 in [place] shows right glenoid degenerative subarticular cyst vs screw tracts, 03/17/15 (in [place]) XR = glenoid degenerative subarticular cyst vs screw tracts Vertebral body hemangioma 10/06/2017 Overview (04/22/2024): MRI - L 1 Chronic low back pain 03/17/2017 Overview (04/22/2024): Xray 03/17/15 in [place] shows lumbar spasm, L3-L4 and L4-L5 DDD with secondary spondylosis at the L3-L4 level MRI lumbar spine 06/30/15 shows early degenerative changes at L4-L55 with decreased signal intesnsity and posterior bulging of annulus fibrosis, no disc extrusions or protrusions are detected. L1 vertebral body hemangioma. Encounters Date Type Department Care Team Description 01/13/2025 Telephone Endocrinology - [place] [address] [place] [address] Lily Sepulveda PA Medication Problem (Freestyle oj 3 sensors) 12/26/2024 8:45 AM EDT Office Visit Bariatric Surgery - [address] [place] [address] Lizz Braden PA Overweight (BMI 25.0-29.9) (Primary Dx) 12/25/2024 3:10 PM EDT Office Visit [facility] [address] [place] [address] Anum Meredith NP Renal artery [...] 10/06/2017 DX:Shoulder pain, right; COMMENT: 03/17/15 (in [place]) XR = glenoid degenerative subarticular cyst vs screw tracts Vertebral body hemangioma 10/06/2017 DX:Ivanna tebral body hemangioma; COMMENT: MRI - L 1 Depression 10/24/2017 DX:Depression Diabetes mellitus type 2, uncomplicated (CMS/HCC V24, CMS/HCC V28) 10/06/2017 DX:Diabetes mellitus type 2, uncomplicated ([facility]) GERD (gastroesophageal reflu x disease) 01/31/2021 DX:GERD [...] 04/24/2025 8:30 AM EDT Office Visit Endocrinology [address] [address] Lily Sepulveda PA [address] [place] [address] 07/07/2025 8:00 AM EST Office Visit Bariatric Surgery - [place] [address] [facility] [address] [place] [phone] Lizz Braden PA [address] [facility] [address] [place] [address] Health Maintenance Due Date Last Done Comments [...] 12/25/2024 4:11 PM EDT Renal artery stenosis ([facility] V24) Palpitations Primary hypertension HEMOGLOBIN A1C Routine [...] GEMUSE QTc 418 ms GEMUSE P Wave [place] 37 degrees GEMUSE R [place] 90 degrees GEMUSE T [place] 15 degrees GEMUSE ECG Interpretation Normal sinus rhythm Rightward axis Borderline ECG When compared with ECG of 27-DEC-2023 08:57, Criteria for Inferior infarct are no longer Present Confirmed by ROBERT MORGAN ([id number]) on 12/29/2024 7:19:45 PM GEMUSE 12/25/2024 3:13 PM EDT 12/29/2024 7:19 PM EDT us Anum Meredith RUG DRYING MACHINE OPERATOR ECG ORDERABLES Edited Resul t - Final Performing Organization Address City/[facility]/ZIP Co de Phone Number LUIS ANGELUSE * (ABNORMAL) Hemoglobin A1c (10/23/2024 11:27 AM EDT) Pathologist [facility] Hemoglobin A1C 6.5(H) <6.5 % LAB CHEMISTRY METHOD 10/23/2024 8:02 PM EDT [facility] Mean Bld Glu Estim. 140 mg/dL LAB CHEMISTRY METHOD 10/23/2024 8:02 PM EDT [facility] Blood Venous blood specimen / Unknown Venipuncture / Unknown 10/23/2024 11:27 AM EDT 10/23/2024 11:27 AM EDT us Lily ATKINSON LAB BLOOD ORDERABLES Final Result [facility] [address] [place] [address], [place] [phone] * Lipid panel with reflex to direct LDL (07/24/2024 10:34 AM EST) Cholesterol 77 0 - 200 mg/dL LAB CHEMISTRY METHOD 07/24/2024 3:16 PM EST [facility] Triglycerides 76 0 - 150 mg/dL LAB CHEMISTRY METHOD 07/24/2024 3:16 PM EST [facility] HDL 41 >=40 mg/dL LAB CHEMISTRY METHOD 07/24/2024 3:16 PM EST [facility] LDL Calculated 21 0 - 100 mg/dL LAB CHEMISTRY METHOD 07/24/2024 3:16 PM [facility] VLDL Cholesterol José Antonio 15.2 mg/dL LAB CHEMISTRY METHOD 07/24/2024 3:16 PM [facility] Non HDL Chol. (LDL+VLDL) 36 <145 mg/dL LAB CHEMISTRY METHOD 07/24/2024 3:16 PM [facility] Chol/HDL Ratio 1.9 0.0 - 4.4 LAB CHEMISTRY METHOD 07/24/2024 3:16 PM [facility] Blood Venous blood specimen / Unknown Venipuncture / Unknown 07/24/2024 10:34 AM EST 07/24/2024 10:34 AM EST Lily ATKINSON LAB BLOOD ORDERABLES Final Result [facility] [address] [place] [address], * (ABNORMAL) Microalbumin creatinine urine ratio (07/24/2024 10:34 AM EST) Creatinine, Urine 306.0 mg/dL LAB CHEMISTRY METHOD 07/24/2024 3:43 PM [facility] Microalb, Ur 115.0(H) 0.0 - 29.0 mg/L LAB CHEMISTRY METHOD 07/24/2024 3:43 PM [facility] Microalb/Crea t Ratio 38(H) <30 mg/g creat LAB CHEMISTRY METHOD 07/24/2024 3:43 PM [facility] Urine Urine specimen from urethra / Unknown Non-blood Collection / Unknown 07/24/2024 10:34 AM EST 07/24/2024 10:34 AM EST us Lily ATKINSON LAB URINE ORDERABLES Final Result [facility] [address] [place] [address], * Basic metabolic panel (07/24/2024 10:34 AM EST) Sodium 138 133 - 145 mmol/L LAB CHEMISTRY METHOD 07/24/2024 3:15 PM [facility] Potassium 3.7 3.5 - 5.5 mmol/L LAB CHEMISTRY METHOD 07/24/2024 3:15 PM [facility] Chloride 105 96 - 110 mmol/L LAB CHEMISTRY METHOD 07/24/2024 3:15 PM [facility] CO2 30 21 - 32 mmol/L LAB CHEMISTRY METHOD 07/24/2024 3:15 PM [facility] Anion Gap 3 3 - 11 LAB CHEMISTRY METHOD 07/24/2024 3:15 PM [facility] Glucose 96 70 - 100 mg/dL LAB CHEMISTRY METHOD 07/24/2024 3:15 PM [facility] BUN 17 5 - 25 mg/dL LAB CHEMISTRY METHOD 07/24/2024 3:15 PM [facility] Creatinine 0.79 0.70 - 1.30 mg/dL LAB CHEMISTRY METHOD 07/24/2024 3:15 PM [facility] eGFR 109 >=60 mL/min/1. 73m2 LAB CHEMISTRY METHOD 07/24/2024 3:15 PM [facility] Comment:Calculation based on the Chronic Kidney Disease Epidemiology Collaboration (CKD-EPI) equation refit without adjustment for race. BUN/Creatinine Ratio 21.5 LAB CHEMISTRY METHOD 07/24/2024 3:15 PM [facility] Calcium 9.6 8.5 - 10.5 mg/dL LAB CHEMISTRY METHOD 07/24/2024 3:15 PM EST [facility] Blood Venous blood specimen / Unknown Venipuncture / Unknown 07/24/2024 10:34 AM EST 07/24/2024 10:34 AM EST Lily ATKINSON LAB BLOOD ORDERABLES Final Result [facility] [address] [place] [address], * Diabetes Eye Exam (01/15/2024) Pathologist [facility] Diabetes: Annual Retina Eye Exam ABSTRACTED Historical Provider MD HEALTH MAINTENANCE Final Result * HIV Screening (01/29/2021) [facility] HIV Screening ABSTRACTED [facility] Provider MD HEALTH MAINTENANCE Final Result * Hepatitis C Screening (01/29/2021) Pathologist [facility] Hepatitis C Screening ABSTRACTED Historical Provider MD HEALTH MAINTENANCE Final Result from Last 3 Months or Most Recently Relevant to Health Maintenance Insurance [employer] MEDIC[employer] Member Subscriber Plan / Payer (Ef fective 2019-Present) Name:JUANI FIGUEROA Relation to Subscriber:Self Name:Juani Figueroa R Payer ID:[id number] Group ID:[id number] Type:Not on file Address: [place] [facility] [place] [id number] Care Teams Technical Spec Relationship Specialty Start Date End Date Sam Bacon [address] [place], [place] PCP - General 02/21/24
--- OUTSIDE RECORDS SUMMARY | 2025-02-24 10:18 | XMS_ITS | Clinical Summary ---
Author Organization [facility] Address [address] [place] [address] Care Team Providers Care Fruit Canner Name Role Phone Unavailable Primary Care Provider [...] complication, without long-term current use of insulin ([facility]) Test blood sugars TID w/meals DX: E11.65 [...] polyneuropathy, with long-term current use of insulin ([facility]) Test blood sugars TID w/meals DX: E11.65 Accu-chek sesar plus test stripes 100 Each 11 11/29/19 18 Active lancets (ACCU-CHEK FASTCLIX)Indicatio ns:Type 2 diabetes mellitus with diabetic polyneuropathy, with long-term current use of insulin ([facility]) Test blood sugars TID w/meals DX: E11.65 accu chek fastclix lancets 100 Each 11 11/29/19 18 Active metFORMIN (GLUCOPHAGE) 1,000 mg tabletIndications: Type 2 diabetes mellitus with diabetic polyneuropathy, with long-term current use of insulin ([facility]) Take 1 Tab by mouth 2 (two) times daily with a meal 60 Tab 5 11/29/19 18 Active dapagliflozin 5 mg tabIndications:Typ e 2 diabetes mellitus with diabetic polyneuropathy, with long-term current use of insulin ([facility]) Take 5 mg by mouth once daily 30 Tab 5 11/29/19 18 Active gabapentin (NEURONTIN) 600 mg tabletIndications: Type 2 diabetes mellitus with diabetic polyneuropathy, with long-term current use of insulin ([facility]) Take 1 Tab by mouth [...] polyneuropathy, with long-term current use of insulin ([facility]) Inject 55 Units into the skin once [...] polyneuropathy, with long-term current use of insulin ([facility]) INJECT UNDER THE SKIN THREE TIMES DAILY [...] complication, without long-term current use of insulin ([facility]) 03/17/2017 Uncircumcised male 03/17/2017 Chronic left-sided low back pain 03/17/2017 Overview (03/17/2017): Xray 03/17/15 in [place] shows lumbar spasm, L3-L4 and L4-L5 DDD with secondary spondylosis at the L3-L4 level MRI lumbar spine 12/29/15 shows early degenerative changes at L4-L55 with decreased signal intesnsity and posterior bulging of annulus fibrosis, no disc extrusions or protrusions are detected. L1 vertebral body hemangioma. Cervicalgia 03/17/2017 Hypokalemia 03/17/2017 Right shoulder pain 03/17/2017 Overview (03/17/2017): Xrau 03/17/15 in [place] shows right glenoid degenerative subarticular cyst vs screw tracts, Chest pain 03/17/2017 Overview (03/17/2017): 03/28/16 Treadmill stress test in [place] clinically positive for ischemia. SPECT study shows [...] Plan of Treatment Not on file Insurance [facility] [place] ER[place] [facility]
--- OUTSIDE RECORDS SUMMARY | 2025-02-24 10:18 | XMS_ITS | Encounter Summary ---
Author Organization [email or web address] Address [address] [facility] 7t [place] [address] Care Team Providers Care Attendant Child Activity Name Role Phone Sam Bacon MD Primary Care Prov ider Encounter Details Date Type Department Care Team ([facility] Contact Info) Description 09/18/2023 Orders Only [facility] CH[facility] MED & PEDS [address] [place], [place] [phone] Sam Bacon MD [address] [place] [address] Social History Tobacco Use Types Packs/Day Years [...] Description 03/27/2025 10:15 AM EDT Office Visit [facility] [address] [place] [address] Sam Bacon MD [address] [place] [address] 04/18/2025 8:00 AM EDT Office Visit [facility] ADULT DENTAL [address] [place] [address] Adolph Cummings documented as of this encounter Visit Diagnoses Not on filedocumented in this encounter Additional Health Concerns Assessment Noted Time PHQ-9 Depression Total Score: 11 024 9:07 AM EDT documented as of this encounter Care Teams Attendant Child Activity Relationship Specialty Start Date End Date Sam Bacon MD [address] [place] [address] PCP - General Internal Medicine 09/14/23 documented as of this encounter
--- OUTSIDE RECORDS SUMMARY | 2025-02-24 10:18 | XMS_ITS | Encounter Summary ---
Author Organization [facility] Address [address] [address] Phone Care Team Providers Care Numberer And Wirer Name Role Phone Sam Goldberg Primary Care Provider [phone] Encounter Details Date Type Department Care Team (Late Contact Info) Description 01/13/2025 Office Communication [facility] [address] [address] Vilma Orr ARNP [address] [address] Social History Tobacco Use Types [...] Office Visit [facility] [address] [address] Javier Rodrigues MD [address] [address] documented as of this encounter Visit Diagnoses Not on filedocumented in this encounter Care Teams Numberer And Wirer Relationship Specialty Start Date End Date Sam Goldberg [address] [place] [address] PCP - General Internal Medicine 12/05/24 documented as of this encounter
--- OUTSIDE RECORDS SUMMARY | 2025-02-24 10:18 | XMS_ITS | Clinical Summary ---
Author Organization [facility] Address [address] [place] [address] Care Team Providers Care Thread Roller Name Role Phone Pcp, No MD Primary [...] OUT OF STATE MEDICARE MANAG[place] [address] Care Teams Thread Roller Relationship Specialty Start Date End Date Amelia Romo MD [address] [place] [address] PCP - General Internal Medicine 06/20/18
[2025-02-24 14:15] LABS: MANUAL DIFF FLAG NO
[2025-02-24 14:24] LABS: Hematocrit 38.7 % (42.0-52.0); Hemoglobin 13.2 g/dl (14.0-18.0); Imm Gran Abs Auto 0.01 X10*3/uL (0.00-0.03); Imm Gran Pct Auto 0.1 % (0.0-0.4); Lymphocytes Absolute Auto 2.7 X10*3/uL (1.2-4.9); Mean Corpuscular HGB Conc 34.1 g/dl (31.0-36.0); Mean Corpuscular Hemoglobin 29.9 pg (27.0-33.0); Mean Corpuscular Volume 87.6 fL (80.0-98.0); NRBC Abs Auto 0.000 X10*3/uL (0.0-0.012); NRBC Pct Auto 0.0 /100WBC (0.0-0.2); Platelet Count 216 X10*3/uL (160-400); Red Blood Count 4.42 X10*6/uL (4.60-5.80); White Blood Count 7.2 X10*3/uL (4.8-10.8)
== END 2025-02-24 09:31 | disposition home or self-care (01) ==
LOC: HO.CHCLDS 09:30
PROVIDERS: Visit Provider Internal Medicine
DX: R22.0 Localized swelling, mass and lump, head (principal)
CPT/HCPCS: 36415; 85025; 85652

== ENCOUNTER 2025-02-27 10:16 | Outpatient (REF) | payer MEDICARE, SELFPAY ==
--- OUTSIDE RECORDS SUMMARY | 2025-02-27 11:33 | XMS_ITS | Encounter Summary ---
Author Organization [email or web address] Address [address] [facility] 7[address] [place] [address] Care Team Providers Care Home Health Caregiver Name Role Phone Sam Bacon MD Primary Care Prov ider Encounter Details Date Type Department Care Team ([facility] Contact Info) Description 09/18/2023 Orders Only [facility] MED & PEDS [address] [place], [place] [phone] Sam Bacon MD [address] [place] [address] Social History Tobacco Use Types Packs/Day Years [...] Description 03/27/2025 10:15 AM EDT Office Visit [facility] MED & PEDS [address] [place] [address] Sam Bacon MD [address] [place] [address] 04/18/2025 8:00 AM EDT Office Visit [facility] ADULT DENTAL [address] [place] [address] Adolph Cummings documented as of this encounter Visit Diagnoses Not on filedocumented in this encounter Additional Health Concerns Assessment Noted Time PHQ-9 Depression Total Score: 11 024 9:07 AM EDT documented as of this encounter Care Teams Home Health Caregiver Relationship Specialty Start Date End Date Sam Bacon MD [address] [place] [address] PCP - General Internal Medicine 09/14/23 documented as of this encounter
--- OUTSIDE RECORDS SUMMARY | 2025-02-27 11:33 | XMS_ITS | Encounter Summary ---
[facility] Organization [facility] Address [address] [place] [address] Care Team Providers Care Casino Worker Name Role Phone Keri Bar MD Primary Care Provider Tania Melendez MD Primary Care Provider Nathaniel Alberto MD Primary Care Provider [phone] Yolie Walls MD Unavailable [phone] Moiz Fan MD Unavailable [phone] Sam Bacon MD Primary Care Prov ider Unavailable Reason for Visit * Reason Comments E-prescribe Rx Request Encounter Details Date Type Department Care Team Description 01/16/2019 [facility] [address] [place] [address] Kasia Miles MD [address] [facility] [address] [place], [place] [id number] E-prescribe Rx Request Social History Tobacco Use Types Packs/Day Years Used Date Smoking Tobacco: Former Cigarettes 0 10/24/2001 - 10/24/2005 Smokeless Tobacco: Never Comments:quit in pp every 2 days Alcohol Use Standard Drinks/Week Comments No 0 (1 standard drink = 0.6 oz pur e alcohol) Sex Assigned at Date Recorded Not on file Job Start Date Occupation Industry Not on file Not on file Not on file documented as of this encounter Miscellaneous Notes * Telephone Encounter - Vilma Corley M.A. - 01/16/2019 8:24 AM EDT Please advise documented in this encounter Plan of Treatment Not on file documented as of this encounter Visit Diagnoses Not on filedocumented in this encounter Care Teams Casino Worker Relationship Specialty Start Date End Date Keri Bar MD PCP - General Internal Medicine 10/05/17 12/21/20 Tania Ramírez MD PCP - General Internal Medicine 12/22/20 01/06/22 Nathaniel Angeles MD PCP - General Internal Medicine 01/07/22 02/20/24 Sam Bacon MD [address] [place] [address] [place] [address] PCP - General Internal Medicine 02/21/24 Yolie Walls MD Specialist Cardiology 10/07/22 03/18/24 Moiz Fan MD [address] [place] [address] [place] [address] Specialist Cardiovascular Disease 11/22/23 documented as of this encounter
--- OUTSIDE RECORDS SUMMARY | 2025-02-27 11:33 | XMS_ITS | Encounter Summary ---
Author Organization [facility] Address [address] [place] [address] Care Team Providers Care Frame Welder Cargo Utility Trailers Name Role Phone Keri Bar MD Primary Care Provider Tania Melendez MD Primary Care Provider Nathaniel Alberto MD Primary Care Provider [phone] Yolie Walls MD Unavailable [phone] Moiz Fan MD Unavailable [phone] Sam Bacon MD Primary Care Prov ider Unavailable Encounter Details Date Type Department Care Team Description 07/29/2019 [facility] Report Medical Records [address] [place] [address] Priyanka Schrader NP Social History Tobacco Use Types Packs/Day Years [...] as of this encounter Plan of Treatment Not on file documented as of this encounter Visit Diagnoses Not on filedocumented in this encounter Care Teams Frame Welder Cargo Utility Trailers Relationship Specialty Start Date End Date Keri Bar MD PCP - General Internal Medicine 10/05/17 12/21/20 Tania Ramírez MD PCP - General Internal Medicine 12/22/20 01/06/22 Nathaniel Angeles MD PCP - General Internal Medicine 01/07/22 02/20/24 Sam Bacon MD [address] [place] [address] [place] [address] PCP - General Internal Medicine 02/21/24 Yolie Walls MD Specialist Cardiology 10/07/22 03/18/24 Moiz Fan MD [address] [place] [address] [place] [address] Specialist Cardiovascular Disease 11/22/23 documented as of this encounter
--- OUTSIDE RECORDS SUMMARY | 2025-02-27 11:33 | XMS_ITS | Encounter Summary ---
Author Organization [employer] Address [address] [facility] [address] [place] [address] Care Team Providers Care Databases Computer Consultant Name Role Phone Sam Bacon MD Primary Care Prov ider Encounter Details Date Type Department Care Team ([facility] Contact Info) Description 02/24/2025 Orders Only [facility] [address] [place] [address] Yareli Cummings MD [address] [place] [address] Normocytic anemia (Primary Dx) Social History Tobacco Use Types Packs/Day Years Used Date Smoking Tobacco: Former Cigarettes Q uit: 2002 Smokeless Tobacco: Never Alcohol Use Standard Drinks/Week Comments Never 0 (1 standard drink = 0.6 oz pur e alcohol) Depression Answer Date Recorded Patient Health Questionnaire-9 Score 0 12/26/2024 Patient Health Questionnaire-9 Score 0 12/26/2024 Last PHQ-9: Questionnaire Data Not on file 0 12/26/2024 Housing Stability Answer Date Recorded What is your housing situation today? I have hossein chaparro 12/26/[address] you li ve. Do you have problems with any of the following? None of the above 12/26/2024 Food Insecurity Answer Date Recorded Within the past 12 months, y ou worried that your food would run out before you got money to buy more: Never True 12/26/2024 Within the past 12 months,th e food you bought just didn't last and you didn't have enough money to get more: Never True Transportation Answer Date Recorded In the past 12 months, has l ack of transportation kept you from medical appts, meetings, work or from getting things needed for daily living? No 12/26/2024 Utilities Answer Date Recorded In the past 12 months, has t he electric, gas, oil or water company threatened to shut off services in your home? No 12/26/2024 Depression Answer Date Recorded Patient Health Questionnaire-2 Score 0 12/26/2024 Internet Access Answer Date Recorded Internet Access Q1 Yes 12/26/2024 Internet Access Q2 Not on file 12/26/2024 Sex and Gender Information Value Date Recorded Sex Assigned at Male 08/25/2023 10:42 AM EST Legal Sex Male 10:40 AM EST Gender Identity Male 08/25/2023 10:42 AM EST Sexual Orientation Straight 08/25/2023 10 :42 AM EST documented as of this encounter Plan of Treatment Upcoming Encounters Date Type Department Care Team (Late st Contact Info) Description 03/27/2025 10:15 AM EDT Office Visit [facility] [address] [place] [address] Sam Bacon MD [address] [place] [address] 04/18/2025 8:00 AM EDT Office Visit [facility] [address] [place] [address] Adolph Cummings Scheduled Orders Name Type Priority Associated Diagnoses Orde r Schedule Iron And Total Iron Binding Capacity Lab Routine Normocytic anemia Expected: 02/24/2025, Expires: 02/24/2026 Ferritin Lab Routine Normocytic anemia Expected: 02/24/2025, Expires: 02/24/2026 Reticulocyte Count Lab Routine Normocytic anemia Expected: 02/24/2025, Expires: 02/24/2026 documented as of this encounter Visit Diagnoses Diagnosis Normocytic anemia- Primary Unspecified anemia documented in this encounter Additional Health Concerns Assessment Noted Time PHQ-9 Depression Total Score: 0 12/27/19 9:33 AM EDT documented as of this encounter Care Teams Databases Computer Consultant Relationship Specialty Start Date End Date Sam Bacon MD [address] [place] [address] PCP - General Internal Medicine 09/14/23 documented as of this encounter
--- OUTSIDE RECORDS SUMMARY | 2025-02-27 11:33 | XMS_ITS | Encounter Summary ---
Author Organization [facility] Address [address] [place] [address] Care Team Providers Care Solderer Name Role Phone Keri Bar MD Primary Care Provider Tania Melendez MD Primary Care Provider Nathaniel Alberto MD Primary Care Provider [phone] Yolie Walls MD Unavailable [phone] Moiz Fan MD Unavailable [phone] Sam Bacon MD Primary Care Prov ider Unavailable Encounter Details Date Type Department Care Team Description 12/28/2018 Paper Sealer Report Medical Records [address] [place] [address] José Miguel James PA [address] [place], [place] [id number] Social History Tobacco Use Types Packs/Day Years [...] on filedocumented in this encounter Care Teams Solderer Relationship Specialty Start Date End Date Keri Bar MD PCP - General Internal Medicine 10/05/17 12/21/20 Tania Ramírez MD PCP - General Internal Medicine 12/22/20 01/06/22 Nathaniel Angeles MD PCP - General Internal Medicine 01/07/22 02/20/24 Sam Bacon MD [address] [place] [address] [place] [address] PCP - General Internal Medicine 02/21/24 Yolie Walls MD Specialist Cardiology 10/07/22 03/18/24 Moiz Fan MD [address] [place] [address] [place] [address] Specialist Cardiovascular Disease 11/22/23 documented as of this encounter
--- OUTSIDE RECORDS SUMMARY | 2025-02-27 11:33 | XMS_ITS | Encounter Summary ---
Author Organization [facility] Address [address] [place] [address] Care Team Providers Care Typesetters Printer Name Role Phone Keri Bar MD Primary Care Provider Tania Melendez MD Primary Care Provider Nathaniel Alberto MD Primary Care Provider [phone] Yolie Walls MD Unavailable [phone] Moiz Fan MD Unavailable [phone] Sam Bacon MD Primary Care Prov ider Unavailable Encounter Details Date Type Department Care Team Description 12/06/2017 Field Health Officer Report Medical Records [address] [place] [address] Hemalatha Alfaro PA-C Social History Tobacco Use Types Packs/Day Years [...] on filedocumented in this encounter Care Teams Typesetters Printer Relationship Specialty Start Date End Date Keri Bar MD PCP - General Internal Medicine 10/05/17 12/21/20 Tania Ramírez MD PCP - General Internal Medicine 12/22/20 01/06/22 Nathaniel Angeles MD PCP - General Internal Medicine 01/07/22 02/20/24 Sam Bacon MD [address] [place] [address] [place] [address] PCP - General Internal Medicine 02/21/24 Yolie Walls MD Specialist Cardiology 10/07/22 03/18/24 Moiz Fan MD [address] [place] [address] [place] [address] Specialist Cardiovascular Disease 11/22/23 documented as of this encounter
--- OUTSIDE RECORDS SUMMARY | 2025-02-27 11:33 | XMS_ITS | Encounter Summary ---
Author Organization [facility] Address [address] [place] [address] Care Team Providers Care Speech And Hearing Director Name Role Phone Keri Bar MD Primary Care Provider Tania Melendez MD Primary Care Provider Nathaniel Alberto MD Primary Care Provider [phone] Yolie Walls MD Unavailable [phone] Moiz Fan MD Unavailable [phone] Sam Bacon MD Primary Care Prov ider Unavailable Encounter Details Date Type Department Care Team Description 10/05/2019 Telephone Adult Medicine [address] [address] Gallito Fernández MD Social History Tobacco Use Types Packs/Day Years [...] encounter Miscellaneous Notes * Telephone Encounter - Lucie Evans Musa - 10/09/2019 8:18 AM EDT Telephone Information: Work Phone Not on file. Called pt he states it is the dexcom that he wants. Paperwork needs to be filled out to go to DME supplier for this not [facility] * Telephone Encounter - Gallito Fernández MD - 10/08/2019 5:44 PM EDT Which one ?? * Telephone Encounter - Lucie COBIAN - 10/08/2019 2:22 PM EDT Yes this can not go to pharm it needs to go to DME pt has [facility] which is very tough to get approved * Telephone Encounter - Gallito Fernández MD - 10/05/2019 1:33 PM EDT So this is not the usual level of confusion: The [facility] requested Dexcom to be sent to [facility] pharmacy which was done. I now have in my in basket a [facility] Medicare written order for [employer] [facility]. So is there any way to figure out what gives?? KB-just an FYI documented in this encounter Plan of Treatment Not on file documented as of this encounter Visit Diagnoses Not on filedocumented in this encounter Care Teams Speech And Hearing Director Relationship Specialty Start Date End Date Keri Bar MD PCP - General Internal Medicine 10/05/17 12/21/20 Tania Ramírez MD PCP - General Internal Medicine 12/22/20 01/06/22 Nathaniel Angeles MD PCP - General Internal Medicine 01/07/22 02/20/24 Sam Bacon MD [address] [place] [address] [place] [address] PCP - General Internal Medicine 02/21/24 Yolie Walls MD Specialist Cardiology 10/07/22 03/18/24 Moiz Fan MD [address] [place] [address] [place] [address] Specialist Cardiovascular Disease 11/22/23 documented as of this encounter
--- OUTSIDE RECORDS SUMMARY | 2025-02-27 11:33 | XMS_ITS | Clinical Summary ---
Author Organization [employer] Address [address] [place] [address] Care Team Providers Care Sergeant Missile Crewman Name Role Phone Sam Bacon MD Primary Care Prov ider Allergies Active Allergy Reactions Criticality Noted Date Comments Shellfish Allergy Anaphylaxis High 10/06/2017 Shellfish-Derived Products Anaphylaxis High 10/07/19 18 Shrimp Extract Swelling 03/15/2017 All sea food Shrimp Flavor Agent (Non-Screening) Angioedema 09/14/2023 Medications spironolactone (Aldactone) 50 MG tablet Take 1 tablet (50 mg) by mouth 2 times daily. 60 tablet 11 4 Active amLODIPine (Norvasc) 5 MG tablet Take 1 tablet (5 mg) by mouth Once per day. 90 tablet 3 4 Active Farxiga 10 MG Take 1 tablet by mouth Once per day. 4 Active buPROPion XL (Wellbutrin XL) 300 MG 24 hr tablet Take 300 mg by mouth in the morning. Active lithium 300 MG tablet Take 2 tablets by mouth 2 times daily. 0 Active metoprolol succinate XL (Toprol-XL) 100 MG 24 hr tablet Take 100 mg by mouth Once per day. Active OLANZapine (ZyPREXA) 10 MG tablet Take 10 mg by mouth at bedtime. 4 Active zolpidem (Ambien) 10 MG tablet Take 10 mg by mouth if needed at bedtime. 4 Active omeprazole (PriLOSEC) [address] capsule Take 20 mg by mouth Once per day. 4 Active hydrALAZINE (Apresoline) 50 MG tablet Take 1 tablet (50 mg) by mouth 3 times daily. 90 tablet 11 4 Active aspirin 81 MG EC tablet Take 81 mg by mouth Once per day. 4 Active EPINEPHrine (Epipen) 0.3 MG/0.3ML injection syringe Inject as directed. Active pregabalin (Lyrica) 150 MG capsule Take 150 mg by mouth 2 times daily. 1 Active NovoLOG FLEXPEN 100 UNIT/ML pen Inject 3 Units under the skin with breakfast, with lunch, and with evening meal. 10 mL 3 5 Active semaglutide (Ozempic, 1 MG/DOSE,) 4 MG/3ML solution pen-injector Inject 1 mg under the skin 1 (one) time per week. 1 each 5 Active irbesartan (Avapro) 300 MG tablet Take 1 tablet (300 mg) by mouth at bedtime. 90 tablet 5 07/18/19 26 Active triamcinolone (Kenalog) 0.1 % cream Apply topically if needed in the morning and at bedtime (pain and swelling). 30 g 5 5 Active Diclofenac Sodium (Voltaren) 1 % gel Apply 2 g topically 3 times daily. 300 g 5 Active fluticasone (Flonase) 50 MCG/ACT nasal spray Administer 1-2 sprays into each nostril Once per day. Shake gently. Before first use, prime pump. After use, clean tip and replace cap. 16 g 2 5 12/07/19 26 Active chlorthalidone (Hygroton) 25 MG tablet Take 1 tablet (25 mg) by mouth Once per day. 90 tablet 3 5 12/07/19 26 Active rosuvastatin (Crestor) 40 MG tablet Take 1 tablet (40 mg) by mouth Once per day. 90 tablet 3 5 12/07/19 26 Active Continuous Glucose Dopeman (FreeStyle Oj 3 [place]) deviceIndicati ons:Type 2 diabetes mellitus with hyperglycemia, with long-term current use of insulin ([facility]) 1 each Once per day. Use as directed for CGM 1 each 5 Active Continuous Glucose Sensor (FreeStyle Oj 3 Plus Sensor) miscIndication s:Type 2 diabetes mellitus with hyperglycemia, with long-term current use of insulin ([facility]) 1 each every 15 days. Apply 1 every 15 days as directed for CGM 2 each 5 Active Lantus SoloStar 100 UNIT/ML pen Inject 30 Units under the skin 2 times daily. 3 mL 5 Active acetaminophen (Tylenol 8 Hour) 650 MG ER tabletIndicati ons:Viral syndrome TAKE ONE TABLET EVERY 8 HOURS NEEDED FOR PAIN. DO NOT BREAK, CRUSH, DISSOLVE OR CHEW 100 tablet 1 5 Active clonazePAM (KlonoPIN) 2 MG tablet Take 1 tablet by mouth 2 times daily. 0 02/20/20 25 Discontinu ed(Therapy completed) Active Problems Problem Noted Date Diagnosed Date Visit for suture removal 01/14/2025 Bilateral lower extremity edema 11/02/2023 Assessment & Plan (11/02/2023 9:11 AM EDT): Bilateral lower extremity swelling, most likely related to amlodipine, will decrease dose follow up as scheduled, continue low sodium diet. High cholesterol 10/27/2023 Other chest pain 10/12/2023 Assessment & Plan (10/12/2023 11:57 AM EDT): Patient has hx of [place], refers had a chest pain last Monday, did not seek medical advise, EKG was done. 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 with perforator, stress test was done on 2021 Screening for colon cancer 10/12/2023 Assessment & Plan (07/18/2024 9:48 AM EST): Patient refers has a appointment for august Assessment & Plan (10/12/2023 12:02 PM EDT): Will refer for screening colonoscopy Type 2 diabetes mellitus wit h hyperglycemia, with long-term current use of insulin 09/14/2023 Assessment & Plan (09/13/2024 10:10 AM EDT): Adjusted his short acting insulin scale, reinforced importance of maintaining low carb/no sugar diet, will follow up in 1 week Assessment & Plan (07/18/2024 9:48 AM EST): [...] month Mixed hyperlipidemia 09/14/2023 Assessment & Plan (12/26/2024 9:52 AM EDT): On rosuvastatin 40mg, no changges will be made, new labs ordered, target LDL <70 Assessment & Plan (10/12/2023 11:53 AM EDT): On rosuvastatin 40mg, continue same treatment Assessment & Plan (09/14/2023 6:06 PM EDT): On rosuvastatin 20mg, will order new labs for guidance of therapy Bipolar disorder, in partial remission, most recent episode mixed 09/14/2023 Assessment & Plan (09/14/2023 6:10 PM EDT): Followed by [facility] on bupropion 300mg, lithium 300mg, olanzapine [...] neurological manif estations 11/28/2017 Assessment & Plan (12/26/2024 9:53 AM EDT): Improved last A1c from 10/2024 was 6.5% continue farxiga, ozempic, lantus 30 units and novolog pre scale. Assessment & Plan (01/07/2024 11:23 PM EDT): [...] was hospitalized again in December 2017 at [facility] for chest pain- ruled out with serial cardiac enzymes and again had an unremarkable nremarkable stress test -More recently presented again to [facility] May 2022 with symptoms of atypical [...] Essential hypertension, benign 01/05/2017 Assessment & Plan (12/26/2024 9:52 AM EDT): Controlled, continue irbersartan, chlorthalidone, metoprolol, amlodipine was decreased to 5mg. Keep bp log, follow up in 3 months Assessment & Plan (10/27/2023 10:33 AM EDT): Improved, will increase spironolactone to 50mg bid, continue with rest of treatment, keep low sodium diet and exercise as tolerated, Follow up in 1 month Encounters Date Type Department Care Team Description 02/25/2025 Results Follow-Up [facility] [address] [place] [address] Ariadna Lebron, JOSE ANTONIO CBC auto differential, Sed Rate by Modified [place] 02/24/2025 Orders Only [facility] [address] [place] [address] Yareli Cummings MD Normocytic anemia (Primary Dx) 02/19/2025 3:00 PM EDT Office Visit [facility] [address] [place] [address] Yareli Cummings MD Subcutaneous mass of head (Primary Dx) 02/19/2025 Travel 02/18/2025 Telephone [facility] [address] [place] [phone] Sam Bacon MD Appointment Request 01/14/2025 9:45 AM EDT Office Visit [facility] [address] [place] [address] Sam Bacon MD Visit for suture removal (Primary Dx); Type 2 diabetes mellitus with hyperglycemia, with long-term current use of insulin ([facility]); Dietary counseling; Exercise counseling; Schizophrenia in remission (CMS/HCC) 01/14/2025 Travel 01/03/2025 Refill [facility] [address] [place] [address] Sam Bacon MD Viral syndrome 12/30/2024 Orders Only [facility] [address] [place] [address] Nano Lewis MD 12/26/2024 9:30 AM EDT Telemedicine [facility] [address] [place] [address] Sam Bacon MD Mixed hyperlipidemia (Primary Dx); Essential hypertension, benign; Diabetes mellitus type 2 with neurological manifestations (CMS/HCC) 12/26/2024 Travel 12/25/2024 Telephone [facility] [address] [place] [address] Sam Bacon MD chart prep 12/12/2024 Orders Only [facility] [address], [place] [phone] Sam Bacon MD Type 2 diabetes mellitus with hyperglycemia, with long-term current use of insulin ([facility]) (Primary Dx) 12/06/2024 9:00 AM EDT Office Visit [facility] [address] [place] [address] Ivette Marco 12/06/2024 Orders Only [facility] [address], [place] [phone] Sam Bacon MD 12/05/2024 Refill [facility] [address], [place] [phone] Sam Bacon MD 12/05/2024 Refill [facility] [address], [place] [phone] Sam Bacon MD 12/05/2024 Refill [facility] [address] [place] [address] Sam Bacon MD 12/05/2024 Refill [facility] [address] [place] [address] Sam Bacon MD 12/05/2024 Refill [facility] [address], [place] [phone] Sam Bacon MD 12/05/2024 Refill [facility] [address], [place] [phone] Sam Bacon MD 12/05/2024 Refill [facility] [address], [place] [phone] Sam Bacon MD 12/05/2024 Refill [facility] [address], [place] [phone] Sam Bacon MD 12/05/2024 Refill [facility] [address] [place] [address] Sam Bacon MD 12/05/2024 Refill [facility] [address] [place] [address] Sam Bacon MD Type 2 diabetes mellitus with hyperglycemia, with long-term current use of insulin ([facility]) from Last 3 Months Immunizations Immunization Administration Dates Next Due Influenza Injectable Quadriv [...] Sign Reading Time Taken Comments Blood Pressure 133/91 02/19/2025 2:54 PM EDT Pulse 80 02/19/2025 2:54 PM EDT Temperature 37.1 C (98.7 F) 01/14/2025 9:10 AM EDT Respiratory Rate 20 02/19/2025 2:54 PM EDT Oxygen Saturation 99% 02/19/2025 2:54 PM EDT Inhaled Oxygen Concentration - - Weight 83.9 kg (185 lb) 02/19/2025 2:54 PM EDT Height 172.7 cm (5' 8 ) 02/19/2025 2:54 PM EDT Body Mass Index 28.13 02/19/2025 2:54 PM EDT Plan of Treatment Upcoming Encounters Date Type Department Care Team (Late st Contact Info) Description 03/27/2025 10:15 AM EDT Office Visit [facility] [address] [place] [address] Sam Bacon MD [address] [place] [address] 04/18/2025 8:00 AM EDT Office Visit [facility] [address] [place] [address] Beauzile, Adolph Health Maintenance Due Date Last Done Comments CT Colonography 1975 Colonoscopy 1975 Colorectal Cancer Screening 1975 Dental Oral Exam 1975 FIT DNA/Cologuard 1975 FIT 1975 FOBT 1975 Sigmoidoscopy 1975 Alcohol/Substance Use Screening 1987 Family Planning (PISQ) 1990 Hepatitis B Vaccines (1 of 3 - 19+ 3-dose series) 1994 Diabetes: Foot Exam 11/08/2024 11/09/2023, 11/09/2023, 11/09/2023, Additional history exists Lipid Panel 11/08/2024 11/09/2023, 09/14/2023 Zoster Vaccines (1 of 2) 2025 Influenza Vaccine (#1) 2025 , 04/14/2020, 05/17/2017, Additional history exists Dental X-Ray: Bitewings 04/19/2025 04/18/2024, 10/26 Dental Prophylaxis 04/20/2025 10/18/2024, 04/18/2024 Diabetes: Hemoglobin A1C 04/24/202510/23/ 025, 07/24/2024, 07/18/2024, Additional history exists Disability Screening 08/09/2025 08/09/2024 Tobacco Screening 12/06/2025 12/06/2024 Depression Screening 12/26/2025 12/26/2024, 12/27/19 25 SDOH Screening 12/26/2025 12/26/2024 Eye Exam 11/06/2026 11/06/2024 Dental X-Ray: Full Mouth 04/19/2027 04/18/2024 DTaP/Tdap/Td Vaccines (2 - Td or Tdap) 09/13/2033 09/14/2023, 01/29/2021, 01/29/2021 HIV Screening 09/13/2033 RSV Patients and Patients Aged 60 years or older (1 - 1-dose 75+ series) 2050 Hepatitis C Screening Completed 09/14/2023 Pneumococcal Vaccine: 50+ Years Completed 07/18/2024, 10/24/2017 COVID-19 Vaccine Completed 08/02/2024 HIB Vaccines Aged Out No longer eligi [...] Procedure Name Priority Date/Time Associated Diagnosis Comments SED RATE BY MODIFIED LYNETTEREN Routine 02/24/2025 10:31 AM EDT Subcutaneous mass of head CBC WITH AUTO DIFFERENTIAL Routine 02/24/2025 10:31 AM EDT Subcutaneous mass of head POCT GLUCOSE Routine 01/14/2025 9:11 AM EDT Type 2 diabetes mellitus with hyperglycemia, with long-term current use of insulin ([facility]) ECG 12-LEAD Routine 12/25/2024 9:06 AM EDT CASE PRESENTATION, DETAILED AND EXTENSIVE TREATMENT PLANNING Routine 12/06/2024 9:00 AM EDT 18,23,24,25,30,31 MANDIBULAR PARTIAL DENTURE - RESIN BASE (INCLUDING, RETENTIVE/CLASPING MATERIALS, RESTS, AND TEETH) Routine 12/06/2024 9:00 AM EDT 2,3,14,15 MAXILLARY PARTIAL DENTURE - RESIN BASE (INCLUDING, RETENTIVE/CLASPING MATERIALS, RESTS, AND TEETH) Routine 12/06/2024 9:00 AM EDT HM DIABETES EYE EXAM Routine 11/06/2024 10:09 AM EDT Full PROPHYLAXIS - ADULT Routine 10/18/2024 8:00 AM EDT POCT GLYCATED HEMOGLOBIN, TOTAL Routine 07/18/2024 9:02 AM EST Type 2 diabetes mellitus with hyperglycemia, with long-term current use of insulin ([facility]) INTRAORAL - COMPLETE SERIES OF RADIOGRAPHIC IMAGES Routine 04/18/2024 8:00 AM EDT LIPID PANEL, STANDARD Routine 11/09/2023 9:17 AM EDT Type 2 diabetes mellitus with hyperglycemia, with long-term current use of insulin (CMS/HCC) HEPATITIS C AB W/REFL TO HCV RNA, QN, PCR Routine 09/14/2023 9:48 AM EDT Type 2 diabetes mellitus with hyperglycemia, with long-term current use of insulin ([facility]/HCC) from Last 3 Months or Most Recently Relevant to Health Maintenance Results * (ABNORMAL) CBC auto differential (02/24/2025 10:31 AM EDT) White Blood Count 7.2 4.8 - 10.8 X10*3/uL [facility] Red Blood Count 4.42(L) 4.60 - 5.80 X10*6/uL [facility] Hemoglobin 13.2(L) 14.0 - 18.0 g/dl [facility] Hematocrit 38.7(L) 42.0 - 52.0 % [facility] Mean Corpuscular Volume 87.6 80.0 - 98.0 fL [facility] Mean Corpuscular Hemoglobin 29.9 27.0 - 33.0 pg [facility] Mean Corpuscular HGB Conc 34.1 31.0 - 36.0 g/dl [facility] Red Cell Distribution Width 11.9 11.0 - 16.0 % [facility] Platelet Count 216 160 - 400 X10*3/uL [facility] Mean Platelet Volume 12.2 9.4 - 12.4 fL [facility] Neutrophils Percent Auto 52.2 45 - 73 % [facility] Imm Gran Pct Auto 0.1 0.0 - 0.4 % [facility] Lymphocytes Percent Auto 37.8 20 - 40 % [facility] Monocytes Percent Auto 7.1 2 - 11 % [facility] Eosinophils Percent Auto 2.1 0 - 4 % [facility] Basophils Percent Auto 0.7 0 - 2 % [facility] NRBC Pct Auto 0.0 0.0 - 0.2 /100WBC [facility] Neutrophils Absolute Auto 3.8 2.0 - 8.3 x10*3/uL [facility] Imm Gran Abs Auto 0.01 0.00 - 0.03 X10*3/uL [facility] Lymphocytes Absolute Auto 2.7 1.2 - 4.9 X10*3/uL [facility] Monocytes Absolute Auto 0.5 0.1 - 1.2 X10*3/uL [facility] Eosinophils Absolute Auto 0.2 0.0 - 0.4 X10*3/uL [facility] Basophils Absolute Auto 0.1 0.0 - 0.2 X10*3/uL [facility] NRBC Abs Auto 0.000 0.0 - 0.012 X10*3/uL [facility] Blood Venous blood specimen / Unknown 02/24/2025 10:31 AM EDT 02/24/2025 2:14 PM EDT us Yareli Cummings MD LAB BLOOD ORDERABLES Final Result Performing Organization Address [facility]/ZIP Co de Phone Number [facility] [address] [place] [phone] * Sed Rate by Modified Dylan (02/24/2025 10:31 AM EDT) Erythrocyte Sedimentation Rate 10 0 - 15 MM/HR [facility] Comment:Patients with polycy themia and many hemoglobin abnormalitiesmay have depressed sed rates whereas patients with anemiamay have elevated sed rates. Blood Venous blood specimen / Unknown 02/24/2025 10:31 AM EDT 02/24/2025 2:14 PM EDT us Yareli Cummings MD LAB BLOOD ORDERABLES Final Result Performing Organization Address [facility]/ZIP Co de Phone Number [facility] [address] [place] [phone] * POCT Glucose (01/14/2025 9:11 AM EDT) Glucose Blood, POC 160 60 - 200 mg/dL QC Media Lot # [id number] Lot# Expiration Date Blood Capillary blood specimen / Unknown 01/14/2025 9:11 AM EDT Sam Coreas MD POINT OF CARE TEST ENTER/EDIT ORDERABLES Final Result * ECG 12 lead (12/25/2024 9:06 AM EDT) Historical Provider ECG ORDERABLES Final Res ult * Hm Diabetes Eye Exam (11/06/2024 10:09 AM EDT) Historical Provider HEALTH MAINTENANCE Final Result * (ABNORMAL) POCT HGB A1C (07/18/2024 9:02 AM EST) Hemoglobin A1C 6.8(A) 4.0 - 6.0 % QC Media Lot # [id number] Lot# Expiration Date ,026 Blood 07/18/2024 9:02 AM EST Sam Coreas MD POINT OF CARE TEST ENTER/EDIT ORDERABLES Final Result * (ABNORMAL) Lipid Panel, Standard (11/09/2023 9:17 AM EDT) Triglycerides 168(H) <150 mg/dL [facility] Comment:Desirable Triglyceri de: less than 150 mg/dLBorderline High Triglyceride 150-199 mg/dLHigh Triglyceride: 200-499 mg/dLVery High Triglyceride: greater than or equal to 5OO mg/dL Cholesterol 175 <200 mg/dL [facility] Comment:Desirable Cholestero l: less than 200 mg/dLBorderline High Cholesterol: 200-239 mg/dLHigh Cholesterol: greater than 239 mg/dL LDL Cholesterol Calculated 106(H) <100 mg/dL [facility] Comment:Desirable LDL: less than 100 mg/dLNear Optimal/Above Optimal LDL: 110- 129 mg/dLBorderline High LDL: 130-159 mg/dLHigh LDL: 160-189 mg/dLVery High LDL: greater than or equal to 190 mg/dL HDL Cholesterol 36(L) >40 mg/dL [facility] Comment:Desirable HDL: great er than 40 mg/dL Note: This HDL assay may give artificially low results in patients with liver disease. Blood Venous blood specimen / Unknown 11/09/2023 9:17 AM EDT 11/09/2023 2:39 PM EDT us Sam Coreas MD LAB BLOOD ORDERABL ES Final Result Performing Organization Address [facility] Co de Phone Number [facility] [address] [place] [address] [phone] * Hepatitis C Antibody with Reflex to HCV, RNA, Quantitative, Real-Time PCR (09/14/2023 9:48 AM EDT) Hepatitis C Antibody Nonreactive Nonreactive [facility] Comment:Antibodies to HCV no t detected; does not exclude early acuteHCV infection. Blood Venous blood specimen / Unknown 09/14/2023 9:48 AM EDT 09/14/2023 2:14 PM EDT us Sam Coreas MD LAB BLOOD ORDERABL ES Final Result Performing Organization Address [facility]/ZIP Co de Phone Number [facility] [address] [place] [address] [phone] from Last 3 Months or Most Recently Relevant to Health Maintenance Insurance [facility] ONE CARE < 65 # [address] [place] [address] D[facility]AL - [facility] Care Teams Sergeant Missile Crewman Relationship Specialty Start Date End Date Sam Bacon MD [address] [place] [phone] PCP - General Internal Medicine 09/14/23
--- OUTSIDE RECORDS SUMMARY | 2025-02-27 11:33 | XMS_ITS | Encounter Summary ---
Author Organization [facility] Address [address] [place] [address] Care Team Providers Care Outbound Telemarketing Representative Name Role Phone Nathaniel Angeles MD Primary Care Provider [phone] Yolie Walls MD Unavailable [phone] Moiz Fan MD Unavailable Sam Bacon MD Primary Care Prov ider Unavailable Encounter Details Date Type Department Care Team Description 02/01/2022 CGM Report Medical Records [address] [place] [id number] Abstract, Provider Social History Tobacco Use Types Packs/Day Years [...] file Not on file Not on file COVID-19 Exposure Response Date Recorded In the last 10 days, have yo u been in contact with someone who was confirmed or suspected to have Coronavirus/COVID-19? No / Unsure 01/07/2022 9:12 AM EDT documented as of this encounter Plan of Treatment Not on file documented as of this encounter Visit Diagnoses Not on filedocumented in this encounter Care Teams Outbound Telemarketing Representative Relationship Specialty Start Date End Date Nathaniel Angeles MD PCP - General Internal Medicine 01/07/22 02/20/24 Sam Bacon MD [address] [place] [address] Dr [address] [place] [phone] PCP - General Internal Medicine 02/21/24 Yolie Walls MD Specialist Cardiology 10/07/22 03/18/24 Moiz Fan MD [address] [place] [address] Dr Johnson [address] [place] [phone] Specialist Cardiovascular Disease 11/22/23 documented as of this encounter
--- OUTSIDE RECORDS SUMMARY | 2025-02-27 11:33 | XMS_ITS | Encounter Summary ---
Author Organization [facility] Address [address] [place] [address] Care Team Providers Care Wooden Shade Hardware Installer Name Role Phone Keri Bar MD Primary Care Provider Tania Melendez MD Primary Care Provider Nathaniel Alberto MD Primary Care Provider [phone] Yolie Walls MD Unavailable [phone] Moiz Fan MD Unavailable [phone] Sam Bacon MD Primary Care Prov ider Unavailable Reason for Visit * Reason Onset Date Comments refill request 03/11/2020 Encounter Details Date Type Department Care Team Description 03/11/2020 Refill Adult Medicine [address] [address] Keri Bar MD refill request Social History Tobacco Use Types Packs/Day Years [...] Exposure Response Date Recorded In the last month, have you been in contact with someone who was confirmed or suspected to have Coronavirus / COVID-19? No / Unsure 03/03/2020 9:21 AM EDT documented as of this encounter Miscellaneous Notes * Telephone Encounter - Keri Bar MD - 03/12/2020 4:44 PM EDT I have ordered repeat labs and lithium level (diuretics can increase lithium concentration) * Telephone Encounter - Darlyn Pepper M.A. - 03/12/2020 12:26 PM EDT Lab Results Component Value Date NA 135 08/26/2019 K 3.9 08/26/2019 CO2 29 08/26/2019 CL 101 08/26/2019 BUN 11 08/26/2019 CREAT 0.83 08/26/2019 GLU 242 08/26/2019 CA 9.6 08/26/2019 GFR > 60 08/26/2019 Last appt 08/22 * Telephone Encounter - Alicia Ceballos - 03/11/2020 2:34 PM EDT Patient would like script to be: E-PRESCRIBED/FAXED TO PHARMACY WHEN WAS THE PATIENT'S LAST APPOINTMENT IN ADULT MEDICINE? 08/26/2019 WHEN WAS THE LAST TIME THE PATIENT SAW THEIR PCP? 07/26/18 Does patient have an upcoming appointment? No-patient will call back to book appointment (THE MEDICATION REQUESTED IS ON THE MED LIST ABOVE) All of the medications requested were on the CURRENT MEDS list Did you check the Pharmacy information above?: YES Patient wants: 30 -day supply Is this a mail order prescription request ? NO If the refill is from a FAXED refill request what is the RX # listed on the fax? N/A\ Patients current insurance carrier is: Payor: [facility] MCR / Plan: [facility] / Product Type: HMO [id number] documented in this encounter Plan of Treatment Not on file documented as of this encounter Results * (ABNORMAL) BASIC METABOLIC PANEL (04/24/2020 10:34 AM EDT) GLUCOSE 141(H) 70 - 100 mg/dL 04/24/2020 12:44 PM EDT [facility] Comment:Reference range appl icable to fasting specimens only Blood Urea Nitrogen 15 5 - 25 mg/dL 04/24/2020 12:44 PM EDT [facility] CREAT 0.76 0.7 - 1.3 mg/dL 04/24/2020 12:44 PM EDT [facility] GLOMERULAR FILTRATION RATE > 60 04/24/2020 12:44 PM EDT [facility] Comment: If patient is -Emirati, multiply result by 1.21 Chronic Kidney Disease: < 60 ml/min/1.73 square meters Kidney Failure: < 15 ml/min/1.73 square meters NA 139 135 - 145 mEq/L 04/24/2020 12:44 PM EDT [facility] K 4.5 3.5 - 5.5 mmol/L 04/24/2020 12:44 PM EDT [facility] CL 105 96 - 110 mmol/L 04/24/2020 12:44 PM EDT [facility] CARBON DIOXIDE (CO2) 28 21 - 32 mmol/L 04/24/2020 12:44 PM EDT [facility] ANION GAP 6 3 - 11 04/24/2020 12:44 PM EDT [facility] CALCIUM 9.8 8.5 - 10.5 mg/dL 04/24/2020 12:44 PM EDT [facility] 04/24/2020 10:3 4 AM EDT 04/24/2020 10:39 AM EDT Narrative DARON MCKINLEY - 04/24/2020 12:44 PM EDT Specify:->ANTI-LANIER (LU) Keri Bar MD LAB DARON MCKINLEY documented in this encounter Visit Diagnoses Diagnosis Essential hypertension- Primary Unspecified essential hypertension Hypokalemia Hypopotassemia Severe episode of recurrent major depressive disorder, without psychotic features (HCC) TAYLA positive Other and unspecified nonspecific immunological findings Multiple joint pain Pain in joint, multiple sites Essential hypertension Unspecified essential hypertension Hypokalemia Hypopotassemia documented in this encounter Care Teams Wooden Shade Hardware Installer Relationship Specialty Start Date End Date Keri Bar MD PCP - General Internal Medicine 10/05/17 12/21/20 Tania Ramírez MD PCP - General Internal Medicine 12/22/20 01/06/22 Nathaniel Angeles MD PCP - General Internal Medicine 01/07/22 02/20/24 Sam Bacon MD [address] [place] [address] [place] [address] PCP - General Internal Medicine 02/21/24 Yolie Walls MD Specialist Cardiology 10/07/22 03/18/24 Moiz Fan MD [address] [place] [address] [place] [id number] Specialist Cardiovascular Disease 11/22/23 documented as of this encounter
--- OUTSIDE RECORDS SUMMARY | 2025-02-27 11:33 | XMS_ITS | Clinical Summary ---
Author Organization [facility] Address [address] [place] [address] Care Team Providers Care Pipe Fitter Apprentice Name Role Phone Pcp, No MD Primary [...] OUT OF STATE MEDICARE MANAG[place] [address] Care Teams Pipe Fitter Apprentice Relationship Specialty Start Date End Date Amelia Romo MD [address] [place] [address] PCP - General Internal Medicine 06/20/18
--- OUTSIDE RECORDS SUMMARY | 2025-02-27 11:33 | XMS_ITS | Encounter Summary ---
[facility] Organization [facility] Address [address] [place] [address] Care Team Providers Care Interventional Tech Name Role Phone Keri Bar MD Primary Care Provider Tania Melendez MD Primary Care Provider Nathaniel Alberto MD Primary Care Provider [phone] Yolie Walls MD Unavailable [phone] Moiz Fan MD Unavailable [phone] Sam Bacon MD Primary Care Prov ider Unavailable Encounter Details Date Type Department Care Team Description 10/30/2018 Telephone General Surgery - [place] [address] [facility] [address] [place] [address] Kasia Miles MD [address] [place] [address] [address] [place], [place] [id number] Social History Tobacco Use Types Packs/Day Years [...] encounter Miscellaneous Notes * Telephone Encounter - Nikki Obrien - 11/12/2018 11:26 AM EDT booked * Telephone Encounter - Nikki Obrien - 10/30/2018 8:31 AM EDT Pt did labs this morning. Requesting a call to book cuban intro group. documented in this encounter Plan of Treatment Not on file documented as of this encounter Visit Diagnoses Not on filedocumented in this encounter Care Teams Interventional Tech Relationship Specialty Start Date End Date Keri Bar MD PCP - General Internal Medicine 10/05/17 12/21/20 Tania Ramírez MD PCP - General Internal Medicine 12/22/20 01/06/22 Nathaniel Angeles MD PCP - General Internal Medicine 01/07/22 02/20/24 Sam Bacon MD [address] [place] [address] [place] [address] PCP - General Internal Medicine 02/21/24 Yolie Walls MD Specialist Cardiology 10/07/22 03/18/24 Moiz Fan MD [address] [place] [address] [place] [address] Specialist Cardiovascular Disease 11/22/23 documented as of this encounter
--- OUTSIDE RECORDS SUMMARY | 2025-02-27 11:33 | XMS_ITS | Encounter Summary ---
Author Organization [facility] Address [address] [place] [address] Care Team Providers Care Probation Manager Name Role Phone Keri Bar MD Primary Care Provider Tania Melendez MD Primary Care Provider Nathaniel Alberto MD Primary Care Provider [phone] Yolie Walls MD Unavailable [phone] Moiz Fan MD Unavailable [phone] Sam Bacon MD Primary Care Prov ider Unavailable Reason for Visit * Reason Onset Date Comments refill request 05/02/2019 Encounter Details Date Type Department Care Team Description 05/02/2019 Refill Adult Medicine [address] [address] Keri Bar MD refill request Social History [...] encounter Miscellaneous Notes * Telephone Encounter - Latasha Dos Santos M.A. - 05/02/2019 4:44 PM EDT Pt has an appt with Dr Bryant for endo tomorrow. * Telephone Encounter - Genny Becerra - 05/02/2019 9:55 AM EDT Patient would like script to be: E-PRESCRIBED/FAXED TO PHARMACY WHEN WAS THE PATIENT'S LAST APPOINTMENT IN ADULT MEDICINE? 07-03-18 WHEN WAS THE LAST TIME THE PATIENT SAW THEIR PCP? 07-26-18 Does patient have an upcoming appointment? no (THE MEDICATION REQUESTED IS ON THE MED LIST ABOVE) All of the medications requested were on the CURRENT MEDS list Did you check the Pharmacy information above?: YES Patient wants: 90 -day supply Is this a mail order prescription request ? NO If the refill is from a FAXED refill request what is the RX # listed on the fax? N/A Patients current insurance carrier is: Payor: [facility] M[facility] / Plan: [facility] / Product Type: HMO [id number] documented in this encounter Plan of Treatment Not on file documented as of this encounter Visit Diagnoses Not on filedocumented in this encounter Care Teams Probation Manager Relationship Specialty Start Date End Date Keri Bar MD PCP - General Internal Medicine 10/05/17 12/21/20 Tania Ramírez MD PCP - General Internal Medicine 12/22/20 01/06/22 Nathaniel Angeles MD PCP - General Internal Medicine 01/07/22 02/20/24 Sam Bacon MD [address] [place] [address] [place] [address] PCP - General Internal Medicine 02/21/24 Yolie Walls MD Specialist Cardiology 10/07/22 03/18/24 Moiz Fan MD [address] [place] [address] [place] [address] Specialist Cardiovascular Disease 11/22/23 documented as of this encounter
--- OUTSIDE RECORDS SUMMARY | 2025-02-27 11:33 | XMS_ITS | Encounter Summary ---
Author Organization [employer] Address [address] [place] [address] Care Team Providers Care Clinical Trial Specialist Name Role Phone Sam Bacon MD Primary Care Prov ider Reason for Visit * Reason Onset Date Comments Results 02/25/2025 Encounter Details Date Type Department Care Team ([facility] Contact Info) Description 02/25/2025 Results Follow-Up [facility] MED & PEDS [address] [place] [address] Ariadna Lebron RN CBC auto differential, Sed Rate by Modified Dylan Social History Tobacco Use Types Packs/Day Years [...] encounter Miscellaneous Notes * Telephone Encounter - Ariadna Lebron RN - 02/25/2025 1:59 PM EDT Pt daughter requesting results. 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 * Telephone Encounter - Yasmany Asher - 02/25/2025 11:35 AM EDT Tc from pt requesting a call back regarding prior message Contact pt at [phone] (bulgarian) * Telephone Encounter - Ariadna Lebron RN - 02/25/2025 10:46 AM EDT TC to pt. No answer x2. VM left by human resource officer for pt to call clinic back. ----- Message from Yareli Cummings MD sent at 02/24/2025 9:46 PM EDT ----- Please call. Labs reviewed. Mild anemia which is most likely due to patient's chronic kidney disease. A workup is ordered to confirm this impression, but can be done the next time his temperature control inspector will request blood work. ----- Message ----- From: Interface, Lab Results In Sent: 02/24/2025 2:25 PM EDT To: Yareli Cummings MD documented in this encounter Plan of Treatment Upcoming Encounters Date Type Department Care Team (Late st Contact Info) Description 03/27/2025 10:15 AM EDT Office Visit [facility] MED & PEDS [address] [place] [address] Sam Bacon MD [address] [place] [address] 04/18/2025 8:00 AM EDT Office Visit [facility] ADULT DENTAL [address] [place] [address] Adolph Cummings documented as of this encounter Visit Diagnoses Not on filedocumented in this encounter Additional Health Concerns Assessment Noted Time PHQ-9 Depression Total Score: 0 12/27/19 25 9:33 AM EDT documented as of this encounter Care Teams Clinical Trial Specialist Relationship Specialty Start Date End Date Sam Bacon MD [address] [place] [address] PCP - General Internal Medicine 09/14/23 documented as of this encounter
--- OUTSIDE RECORDS SUMMARY | 2025-02-27 11:33 | XMS_ITS | Encounter Summary ---
Author Organization [facility] Address [address] [place] [address] Care Team Providers Care Mold Unloader Name Role Phone Keri Bar MD Primary Care Provider Tania Melendez MD Primary Care Provider Nathaniel Alberto MD Primary Care Provider [phone] Yolie Walls MD Unavailable [phone] Moiz Fan MD Unavailable [phone] Sam Bacon MD Primary Care Prov ider Unavailable Reason for Visit * Reason Comments E-prescribe Rx Request Encounter Details Date Type Department Care Team Description 12/31/2019 Refill Adult Medicine B - [address] [address] Gallito Fernández MD E-prescribe Rx Request Social History Tobacco Use [...] encounter Miscellaneous Notes * Telephone Encounter - Shi Richey M.A. - 01/01/2020 5:27 PM EDT Date of last office visit was 11/19/19 Lab Results Component Value Date HGBA1C 8.7 12/03/2019 MALBUR 12.8 08/26/2019 MALBCR 11.2 08/26/2019 CHOL 163 08/26/2019 LDL 82 08/26/2019 HDL 42 08/26/2019 TRIG 198 08/26/2019 GLU 242 08/26/2019 CREAT 0.83 08/26/2019 * Telephone Encounter - Chiquis Rose - 01/01/2020 7:32 AM EDT Patient would like script to be: E-PRESCRIBED/FAXED TO PHARMACY WHEN WAS THE PATIENT'S LAST APPOINTMENT IN ADULT MEDICINE? 08/26/19 WHEN WAS THE LAST TIME THE PATIENT SAW THEIR PCP? 07/26/18 Does patient have an upcoming appointment? No, Patient will call to schedule a future appointment. (THE MEDICATION REQUESTED IS ON THE MED [...] N/A Patients current insurance carrier is: [facility] / Plan: [facility] / Product Type: HMO [id number] documented in this encounter Plan of Treatment Not on file documented as of this encounter Visit Diagnoses Not on filedocumented in this encounter Care Teams Mold Unloader Relationship Specialty Start Date End Date Keri Bar MD PCP - General Internal Medicine 10/05/17 12/21/20 Tania Ramírez MD PCP - General Internal Medicine 12/22/20 01/06/22 Nathaniel Angeles MD PCP - General Internal Medicine 01/07/22 02/20/24 Sam Bacon MD [address] [place] [address] [place] [address] PCP - General Internal Medicine 02/21/24 Yolie Walls MD Specialist Cardiology 10/07/22 03/18/24 Moiz Fan MD [address] [place] [address] [place] [address] Specialist Cardiovascular Disease 11/22/23 documented as of this encounter
--- OUTSIDE RECORDS SUMMARY | 2025-02-27 11:33 | XMS_ITS | Clinical Summary ---
Author Organization [facility] Address [address] [place] [address] Care Team Providers Care Senior Geologist Name Role Phone Unavailable Primary Care Provider [...] complication, without long-term current use of insulin ([facility]) Test blood sugars TID w/meals DX: [...] polyneuropathy, with long-term current use of insulin ([facility]) Test blood sugars TID w/meals DX: E11.65 Accu-chek sesar plus test stripes 100 Each 11 11/29/19 18 Active lancets (ACCU-CHEK FASTCLIX)Indicatio ns:Type 2 diabetes mellitus with diabetic polyneuropathy, with long-term current use of insulin ([facility]) Test blood sugars TID w/meals DX: E11.65 accu chek fastclix lancets 100 Each 11 11/29/19 18 Active metFORMIN (GLUCOPHAGE) 1,000 mg tabletIndications: Type 2 diabetes mellitus with diabetic polyneuropathy, with long-term current use of insulin ([facility]) Take 1 Tab by mouth 2 (two) times daily with a meal 60 Tab 5 11/29/19 18 Active dapagliflozin 5 mg tabIndications:Typ e 2 diabetes mellitus with diabetic polyneuropathy, with long-term current use of insulin ([facility]) Take 5 mg by mouth once daily 30 Tab 5 11/29/19 18 Active gabapentin (NEURONTIN) 600 mg tabletIndications: Type 2 diabetes mellitus with diabetic polyneuropathy, with long-term current use of insulin ([facility]) Take 1 Tab by mouth once daily [...] polyneuropathy, with long-term current use of insulin ([facility]) Inject 55 Units into the skin [...] polyneuropathy, with long-term current use of insulin ([facility]) INJECT UNDER THE SKIN THREE TIMES [...] complication, without long-term current use of insulin ([facility]) 03/17/2017 Uncircumcised male 03/17/2017 Chronic left-sided [...] Plan of Treatment Not on file Insurance [facility]
--- OUTSIDE RECORDS SUMMARY | 2025-02-27 11:33 | XMS_ITS | Encounter Summary ---
Author Organization [employer] Address [address] [place] [address] Care Team Providers Care Splicer Machine Operator Name Role Phone Sam Bacon MD Primary Care Prov ider Encounter Details Date Type Department Care Team ([facility] st Contact Info) Description 08/05/2024 Orders Only [facility] [address] [place] [address] Sam Bacon MD [address] [place] [address] Dysuria (Primary Dx) Social History Tobacco Use [...] Description 03/27/2025 10:15 AM EDT Office Visit [facility] [address] [place] [address] Sam Bacon MD [address] [place] [address] 04/18/2025 8:00 AM EDT Office Visit [facility] ADULT DENTAL [address] [place] [address] Adolph Cummings documented as of this encounter Procedures Procedure Name Priority Date/Time Associated Diagnosis Comments URINALYSIS, COMPLETE, WITH REFLEX TO CULTURE Routine 08/05/2024 10:13 AM EST Dysuria documented in this encounter Results * (ABNORMAL) Urinalysis, Complete, with Reflex to Culture (08/05/2024 10:13 AM EST) Color Urine Dark Yellow [facility] Appearance Urine Clear [facility] PH 6.0 5.0 - 9.0 [facility] Glucose Urine UA 250(A) Negative mg/dL [facility] Urine Blood Negative Negative [facility] Specific [place] - Urine >=1.030(H) 1.005 - 1.025 [facility] Urine Protein 30 (1+)(A) Neg-Trace mg/dL [facility] Urine Ketones Trace Negative mg/dL [facility] Nitrite Urine Negative Negative [facility] Leukocyte Esterase Urine Negative Negative [facility] RBC Urine 0-2 0 - 2 /HPF [facility] Urine WBC 0-5 0 - 5 /HPF [facility] Urine Squamous Epithelial Cell 0-2 0 - 2 /HPF [facility] Urine Bacteria None Seen None Seen [facility] Hyaline Casts, Urine 0-2 0 - 2 /LPF [facility] Urine 08/05/2024 10:1 3 AM EST 08/05/2024 2:28 PM EST Narrative [facility] - 08/05/2024 2:38 PM EST [id number], Clean Catch us Sam Coreas MD LAB URINE ORDERABL ES Final Result [facility] [address] [place] [address] [phone] documented in this encounter Visit Diagnoses Diagnosis Dysuria- Primary documented in this encounter Additional Health Concerns Assessment Noted Time PHQ-9 Depression Total Score: 11 024 9:07 AM EDT documented as of this encounter Care Teams Splicer Machine Operator Relationship Specialty Start Date End Date Sam Bacon MD [address] [place] [address] PCP - General Internal Medicine 09/14/23 documented as of this encounter
--- OUTSIDE RECORDS SUMMARY | 2025-02-27 11:33 | XMS_ITS | Encounter Summary ---
Author Organization [facility] Address [address] [place] [address] Care Team Providers Care Dispatcher Maintenance Name Role Phone Keri Bar MD Primary Care Provider Tania Melendez MD Primary Care Provider Nathaniel Alberto MD Primary Care Provider [phone] Yolie Walls MD Unavailable [phone] Moiz Fan MD Unavailable [phone] Sam Bacon MD Primary Care Prov ider Unavailable Reason for Visit * Reason Comments E-prescribe Rx Request Encounter Details Date Type Department Care Team Description 11/29/2018 Refill Adult Medicine B - [address] [address] Gallito Fernández MD E-prescribe Rx Request Social [...] encounter Miscellaneous Notes * Telephone Encounter - Gallito Fernández MD - 11/29/2018 10:22 AM EDT Needs f/u for further refill * Telephone Encounter - Fariba Bustamante M.A. - 11/29/2018 9:28 AM EDT Last office visit 08/29/[address] Fernández Lab Results Component Value Date HGBA1C 12.6 07/26/2018 MALBUR 8.4 07/26/2018 MALBCR < 14.0 07/26/2018 CHOL 160 07/26/2018 LDL 93 07/26/2018 HDL 32 07/26/2018 TRIG 177 07/26/2018 GLU 379 07/26/2018 CREAT 0.99 07/26/2018 No results found for: TSH * Telephone Encounter - Darlyn Pepper M.A. - 11/29/2018 8:15 AM EDT Med ordered by Dr. Fernández * Telephone Encounter - Lizz Eugene - 11/29/2018 8:02 AM EDT Patient would like script to be: E-PRESCRIBED/FAXED TO PHARMACY WHEN WAS THE PATIENT'S LAST APPOINTMENT IN ADULT MEDICINE? 08/29/18 WHEN WAS THE LAST TIME THE PATIENT SAW THEIR PCP? 07/26/18 Does patient have an upcoming appointment? no [...] N/A Patients current insurance carrier is: Payor: [facility] MCR / Plan: [facility] / Product Type: HMO [id number] documented in this encounter Plan of Treatment Not on file documented as of this encounter Visit Diagnoses Not on filedocumented in this encounter Care Teams Dispatcher Maintenance Relationship Specialty Start Date End Date Keri Bar MD PCP - General Internal Medicine 10/05/17 12/21/20 Tania Ramírez MD PCP - General Internal Medicine 12/22/20 01/06/22 Nathaniel Angeles MD PCP - General Internal Medicine 01/07/22 02/20/24 Sam Bacon MD [address] [place] [address] [place] [address] PCP - General Internal Medicine 02/21/24 Yolie Walls MD Specialist Cardiology 10/07/22 03/18/24 Moiz Fan MD [address] [place] [address] [place] [address] Specialist Cardiovascular Disease 11/22/23 documented as of this encounter
--- OUTSIDE RECORDS SUMMARY | 2025-02-27 11:33 | XMS_ITS | Encounter Summary ---
Author Organization [facility] Address [address] [place] [address] Care Team Providers Care Scrap Separator Name Role Phone Keri Bar MD Primary Care Provider Tania Melendez MD Primary Care Provider Nathaniel Alberto MD Primary Care Provider [phone] Yolie Walls MD Unavailable [phone] Moiz Fan MD Unavailable [phone] Sam Bacon MD Primary Care Prov ider Unavailable Encounter Details Date Type Department Care Team Description 12/11/2017 Hospital Medical Records [address] [place] [address] Sinan Britton Social History Tobacco Use Types Packs/Day Years [...] on filedocumented in this encounter Care Teams Scrap Separator Relationship Specialty Start Date End Date Keri Bar MD PCP - General Internal Medicine 10/05/17 12/21/20 Tania Ramírez MD PCP - General Internal Medicine 12/22/20 01/06/22 Nathaniel Angeles MD PCP - General Internal Medicine 01/07/22 02/20/24 Sam Bacon MD [address] [place] [address] [place] [address] PCP - General Internal Medicine 02/21/24 Yolie Walls MD Specialist Cardiology 10/07/22 03/18/24 Moiz Fan MD [address] [place] [address] [place] [address] Specialist Cardiovascular Disease 11/22/23 documented as of this encounter
--- OUTSIDE RECORDS SUMMARY | 2025-02-27 11:34 | XMS_ITS | Encounter Summary ---
Author Organization [facility] Address [address] [place] [address] Care Team Providers Care Dust Collector Operator Name Role Phone Nathaniel Angeles MD Primary Care Provider [phone] Yolie Walls MD Unavailable [phone] Moiz Fan MD Unavailable [phone] Sam Bacon MD Primary Care Prov ider Unavailable Reason for Visit * Reason Onset Date Comments Faxed Refill 01/10/2023 Encounter Details Date Type Department Care Team Description 01/10/2023 Refill Internal Medicine - [address], [address] [place] [address] Nathaniel Angeles MD [address] [place], [place] [id number] Faxed Refill Social History Tobacco Use Types Packs/Day Years [...] suspected to have Coronavirus/COVID-19? No / Unsure 12/28/2022 9:37 AM EDT documented as of this encounter Miscellaneous Notes * Telephone Encounter - Love Rubalcava M.A. - 01/10/2023 11:43 AM EDT BP Readings from Last 3 Encounters: 12/28/22 (!) 150/80 12/15/22 139/88 12/12/22 (!) 142/90 * Telephone Encounter - Laney Avery - 01/10/2023 8:58 AM EDT Annabelle 12/28/2022 Nov documented in this encounter Plan of Treatment Not on file documented as of this encounter Visit Diagnoses Not on filedocumented in this encounter Care Teams Dust Collector Operator Relationship Specialty Start Date End Date Nathaniel Angeles MD PCP - General Internal Medicine 01/07/22 02/20/24 Sam Bacon MD [address] [place] [address] Dr Johnson [address] [place] [address] PCP - General Internal Medicine 02/21/24 Yolie Walls MD Specialist Cardiology 10/07/22 03/18/24 Moiz Fan MD [address] [place] [address] Dr Johnson [address] [place] [address] Specialist Cardiovascular Disease 11/22/23 documented as of this encounter
--- OUTSIDE RECORDS SUMMARY | 2025-02-27 11:34 | XMS_ITS | Encounter Summary ---
Author Organization [facility] Address [address] [place] [address] Care Team Providers Care Novelties Sales Representative Name Role Phone Moiz Fan MD Unavailable [phone] Sam Bacon MD Primary Care Prov ider Unavailable Encounter Details Date Type Department Care Team Description 03/19/2024 Orders Only Cardio PVC POC [address] [facility] [address] [place] [address] Default, Provider Social History Tobacco Use Types Packs/Day [...] on file documented as of this encounter Procedures Procedure Name Priority Date/Time Associated Diagnosis Comments OUTSIDE LAB Routine 03/02/2024 documented in this encounter Results * OUTSIDE LAB (03/02/2024) Provider Default LAB documented in this encounter Visit Diagnoses Not on filedocumented in this encounter Care Teams Novelties Sales Representative Relationship Specialty Start Date End Date Sam Bacon MD [address] [place] [address] [place] [address] PCP - General Internal Medicine 02/21/24 Moiz Fan MD [address] [place] [address] [place] [address] Specialist Cardiovascular Disease 11/22/23 documented as of this encounter
--- OUTSIDE RECORDS SUMMARY | 2025-02-27 11:34 | XMS_ITS | Encounter Summary ---
Author Organization [facility] Address [address] [place] [address] Care Team Providers Care Manufacturing Maintenance Mechanic Name Role Phone Yolie Walls MD Unavailable [phone] Moiz Fan MD Unavailable [phone] Sam Bacon MD Primary Care Prov ider Unavailable Encounter Details Date Type Department Care Team Description 02/22/2024 Orders Only Medical Records [address] [place] [address] Kasia Miles MD [address] [place] [address] [address] [place], [place] [id number] Social History Tobacco Use Types Packs/Day Years [...] Name Priority Date/Time Associated Diagnosis Comments OUTSIDE PLAIN FILM Routine 02/22/2024 documented in this encounter Results * OUTSIDE PLAIN FILM (02/22/2024) Kasia Miles MD RADIOLOGY documented in this encounter Visit Diagnoses Not on filedocumented in this encounter Care Teams Manufacturing Maintenance Mechanic Relationship Specialty Start Date End Date Sam Bacon MD [address] [place] [address] [place] [address] PCP - General Internal Medicine 02/21/24 Yolie Walls MD Specialist Cardiology 10/07/22 03/18/24 Moiz Fan MD [address] [place] [address] [place] [address] Specialist Cardiovascular Disease 11/22/23 documented as of this encounter
--- OUTSIDE RECORDS SUMMARY | 2025-02-27 11:34 | XMS_ITS | Clinical Summary ---
Author Organization [facility] Address [address] [address] Phone Care Team Providers Care Rechecker Name Role Phone Sam Goldberg Primary Care Provider Allergies No known active allergies Medications acetaminophen (TYLENOL 8 HOUR) 650 MG 8 hr tablet Take 650 mg by mouth every 8 hours as needed 09/19/2024 09/20/19 26 Active amLODIPine (NORVASC) 10 MG tablet Take 10 mg by mouth in the morning. 09/12/2024 06/09/20 25 Active aspirin (ST RUSS) 81 MG EC tablet Take 1 tablet by mouth 1 (one) time each day 04/03/2024 Active buPROPion XL (WELLBUTRIN XL) 300 MG 24 hr tablet Route: Take 300 mg by mouth every morning. - Oral Active chlorthalidone 25 MG tablet Take 1 tablet by mouth 1 (one) time each day 02/28/2024 Active clonazePAM (KlonoPIN) 2 MG tablet Take 1 tablet by mouth in the morning and 1 tablet in the evening. 01/14/2020 Active Dapagliflozin Propanediol (Farxiga) 10 MG tablet Take 1 tablet by mouth 1 (one) time each day 01/07/2024 Active diphenhydrAMINE (BENADRYL) 25 MG tablet Take 25 mg by mouth every 6 hours as needed 12/07/2023 Active EPINEPHrine (EPIPEN) 0.3 MG/0.3ML injection syringe Inject as directed. Active fluticasone (FLONASE) 50 MCG/ACT nasal spray 1-2 sprays in the morning. 08/12/2024 08/12/19 26 Active hydrALAZINE 50 MG tablet Take 1 tablet by mouth in the morning and 1 tablet at noon and 1 tablet in the evening. 03/20/2024 Active Insulin Aspart FlexPen 100 UNIT/ML solution pen-injector INJECT UNDER THE SKIN THREE TIMES DAILY BEFORE MEALS PER SCALE: 70-119:12U, 120-169:17U, 170-219:20U, 220-269:22U, 270-319:23U, 320-369:24U, >370:25U AND CALL MD, plus 2 more units at dinner 12/06/2023 Active Lantus SoloStar 100 UNIT/ML injection INJECT 30 UNITS TWICE A DAY 04/09/2024 Active Semaglutide, 1 MG/DOSE, (Ozempic, 1 MG/DOSE,) 4 MG/3ML solution pen-injector Inject 1 mg under the skin 04/09/2024 Active irbesartan (AVAPRO) 300 MG tablet Take 300 mg by mouth 03/20/2024 07/18/19 Active lithium 300 MG tablet Route: Take 2 Tabs by mouth 2 times daily. - 03/03/2020 Active metoprolol succinate XL (TOPROL-XL) 100 MG 24 hr tablet Take 100 mg by mouth in the morning. Active OLANZapine (ZyPREXA) 10 MG tablet Take 10 mg by mouth 08/24/2023 Active OLANZapine (ZyPREXA) 2.5 MG tablet Take 2.5 mg by mouth in the morning. 02/28/2024 Active omeprazole (PriLOSEC) [address] capsule Take 20 mg by mouth 09/19/2023 Active pantoprazole (PROTONIX) 40 MG EC tablet Take 40 mg by mouth 02/19/2024 Active pregabalin (LYRICA) 150 MG capsule Route: Take 1 capsule by mouth 2 times daily for 180 days. - Oral 12/28/2020 Active rosuvastatin (CRESTOR) 40 MG tablet Take 40 mg by mouth in the morning. 02/28/2024 09/19/19 Active spironolactone (ALDACTONE) 50 MG tablet Take 50 mg by mouth in the morning and 50 mg in the evening. 10/27/2023 Active simethicone (MYLICON) 80 MG chewable tablet Chew 80 mg 02/19/2024 Ac tive traZODone (DESYREL) 50 MG tablet Route: Take 1 Tablet by mouth at bedtime. - Oral Active temazepam (RESTORIL) 15 MG capsule Route: Take by mouth at bedtime. - Oral Active triamcinolone (KENALOG) 0.1 % cream 12/07/2023 Active zolpidem (AMBIEN) 10 MG tablet Take 1 tablet by mouth at bed time 02/28/2024 Active Active Problems Problem Noted Date Diagnosed Date Resistant hypertension 01/13/2025 Hyperglycemia due to type 2 diabetes mellitus Microalbuminuria 10/08/2020 Essential (primary) hypertension 10/06/2017 Overview (12/05/2024): Last Assessment & Plan: Continue current antihypertensive medications for the time being, reviewed the importance of reading labels and observing a less than 2000 mg/day sodium diet trying to avoid packaged or processed foods; also reviewed the importance of regular aerobic exercise to uphold cardiovascular health-recommended 30 minutes daily of some sort of moderately paced aerobic activity Hypokalemia 03/17/2017 Type 2 diabetes mellitus 03/17/2017 Benign essential hypertension 01/05/2017 Encounters Date Type Department Care Team Description 01/13/2025 11:15 AM EDT Office Visit [facility] [address] [address] Vilma Orr ARNP Resistant hypertension (Primary Dx) 01/13/2025 Office Communication [facility] [address] [address] Vilma Orr ARNP 12/09/2024 Orders Only [facility] [address] [address] Javier Rodrigues MD 12/05/2024 3:30 PM EDT Office Visit [facility] [address] [address] Javier Rodrigues MD Resistant hypertension (Primary Dx) from Last 3 Months Immunizations Immunization Administration Dates Next Due Influenza, Injectable, Madin [place] Canine Kidney, Preservative Free 08/02/2024 Influenza, MDCK, PF, Quadrivalent 04/14/2020 Influenza, Quadrivalent, Preservative Free 05/17 Pneumococcal Conjugate Pcv 20 07/18/2024 Pneumococcal Polysaccharide 10/24/2017 Td 01/29/2021 Td, Not Adsorbed 01/29/2021 Tdap 09/14/2023 Family History Medical History Relation Comments Heart disease Father Hypertension Father Cancer Mother Diabetes Mother Hypertension Mother Relation Status Comments Father Mother Alive Social History Tobacco Use Types Packs/Day Years Used Date Smoking Tobacco: Former Cigarettes Smokeless Tobacco: Never Tobacco Cessation:Counseling Given: Not Answered Alcohol Use Standard Drinks/Week Comments Not Currently 0 (1 standard drink = 0.6 oz pur e alcohol) Sex and Gender Information Value Date Recorded Sex Assigned at Not on file Legal Sex Male 1:07 PM EDT Gender Identity Not on file Sexual Orientation Not on file Last Filed Vital Signs Vital Sign Reading Time Taken Comments Blood Pressure 124/86 01/13/2025 10:53 AM EDT Pulse 101 01/13/2025 10:30 AM EDT Temperature - - Respiratory Rate - - Oxygen Saturation 99% 01/13/2025 10:30 AM EDT Inhaled Oxygen Concentration - - Weight 83 kg (183 lb) 01/13/2025 10:30 AM EDT Height - - Body Mass Index - - Plan of Treatment Upcoming Encounters Date Type Department Care Team (Late st Contact Info) Description 04/15/2025 1:30 PM EDT Office Visit [facility] [address] [address] Javier Rodrigues MD [address] [address] Health Maintenance Due Date Last Done Comments Hepatitis B Vaccine (1 of 3 - 19+ 3-dose series) 1994 Colorectal Cancer Screening: Annual FOBT 02/15/2024 Colorectal Cancer Screening: Colonoscopy 02/15/2024 Colorectal Cancer Screening: Sigmoidoscopy 02/15/2024 Diabetes: Ophthalmology Exam 09/20/2024 12/29/2017 Diabetes: Pedal Pulse Checked 09/20/2024 Diabetes: Sensory Foot Exam 09/20/2024 Diabetes: Visual Foot Exam 09/20/2024 Diabetes: Hemoglobin A1C 01/22/2025 025, 07/24/2024, 07/18/2024 Influenza Vaccine (#1) 2025 5, 04/14/2020, 05/17/2017 Pneumococcal Vaccine: 50+ Years Completed 5, 10/24/2017 Pneumococcal Vaccine: Peds ( 0 to 5 Years) and At-Risk Patients (6 to 49 Years) Discontinued 07/18/2024, 10/24/2017 Procedures Procedure Name Priority Date/Time Associated Diagnosis Comments CATECHOLAMINES, FRACTIONATED, PLASMA Routine 12/09/2024 8:21 AM EDT URINE ALBUMIN / CREATININE RATIO Routine 12/09/2024 8:21 AM EDT PROTEIN / CREATININE RATIO, URINE Routine 12/09/2024 8:21 AM EDT RENAL FUNCTION PANEL Routine 12/09/2024 8:21 AM EDT URINALYSIS WITH MICROSCOPIC Routine 12/09/2024 8:21 AM EDT TSH+FREE T4 Routine 12/09/2024 8:21 AM EDT MICROSCOPIC EXAMINATION - DO NOT USE Routine 12/09/2024 8:21 AM EDT from Last 3 Months Results * TSH+Free T4 (12/09/2024 8:21 AM EDT) TSH 1.560 0.450 - 4.500 uIU/mL [facility] Free T4 0.96 0.82 - 1.77 ng/dL [facility] 12/09/2024 8:21 AM EDT 12/09/2024 us Javier Rodrigues MD LAB BLOOD ORDERABLES Final Re sult [facility] [address] [place] [address] * Microscopic Examination (12/09/2024 8:21 AM EDT) WBC, Urine None seen 0 - 5 /hpf [facility] RBC, Urine None seen 0 - 2 /hpf [facility] Squamous Epithelial, Urine None seen 0 - 10 /hpf [facility] Casts None seen None seen /lpf [facility] Bacteria, Urine None seen None seen/Few [facility] 12/09/2024 8:21 AM EDT 12/09/2024 Javier Rodrigues MD LAB MICROBIOLOGY - GENERAL OR DERABLES Final Result Performing Organization Address [facility]/ZIP Co de Phone Number [facility] [address] [place] [address] * Catecholamines, fractionated, plasma (12/09/2024 8:21 AM EDT) Norepinephrine 257 115 - 524 pg/mL [facility] Epinephrine 11.3 0.0 - 55.4 pg/mL [facility] Dopamine <10.0 0.0 - 36.7 pg/mL [facility] 12/09/2024 8:21 AM EDT 12/09/2024 Narrative [facility] - 12/19/2024 11:06 AM EDT Test(s) 358946-Yswmainogyszxg; 916345-Glaxmqacnof; 540678-Bqlinfos was developed and its performance characteristics determined by [employer]. It has not been cleared or approved by the Food and Drug Administration. Javier Rodrigues MD LAB BLOOD ORDERABLES Final Re sult Performing Organization Address City/[facility]/ZIP Co de Phone Number [facility] [address] [place] [address] * Protein, Total, Random Urine w/Creatinine (Protein/Creat Ratio) (12/09/2024 8:21 AM EDT) Creatinine, Ur 250.7 Not Estab. mg/dL [facility] Protein, Ur 31.5 Not Estab. mg/dL [facility] Urine Protein/Creatin ine Ratio 126 0 - 200 mg/g creat [facility] 12/09/2024 8:21 AM EDT 12/09/2024 Javier Rodrigues MD LAB URINE ORDERABLES Final Re sult Performing Organization Address [facility] Co de Phone Number [facility] [address] [place] [address] * (ABNORMAL) Urine Albumin / Creatinine Ratio (12/09/2024 8:21 AM EDT) Albumin, Urine 76.9 Not Estab. ug/mL [facility] Albumin/Creatin ine Ratio 31(H) 0 - 29 mg/g creat [facility] Comment: Normal: 0 - 29 Moderately increased: 30 - 300 Severely increased: >300 12/09/2024 8:21 AM EDT 12/09/2024 Javier Rodrigues MD LAB URINE ORDERABLES Final Re sult Performing Organization Address City/[facility]/ZIP Co de Phone Number [facility] [address] [place] [address] * (ABNORMAL) Urinalysis with microscopic (12/09/2024 8:21 AM EDT) Specific [place], Urine >=1.030(A) 1.005 - 1.030 [facility] [phone] pH Urine 6.0 5.0 - 7.5 [facility] [phone] Color, Urine Yellow Yellow [facility] Appearance Urine Clear Clear [facility] WBC Esterase Urine Negative Negative [facility] Protein, Ur 1+(A) Negative/Tra ce [facility] [phone] Glucose, Ur Trace(A) Negative [facility] Ketones, Urine Trace(A) Negative [facility] Blood Urine Negative Negative [facility] [phone] Bilirubin Urine Negative Negative [facility] Urobilinogen Urine 1.0 0.2 - 1.0 mg/dL [facility] Nitrite, Urine Negative Negative [facility] Microscopic Examination See below: [facility] [phone] Comment:Microscopic was ed cated and was performed. 12/09/2024 8:21 AM EDT 12/09/2024 us Javier Rodrigues MD LAB URINE ORDERABLES Final Re sult [facility] [address] [place] [address] * (ABNORMAL) Renal Function Panel (12/09/2024 8:21 AM EDT) Glucose 135(H) 70 - 99 mg/dL [facility] BUN 20 6 - 24 mg/dL [facility] Creatinine 0.72(L) 0.76 - 1.27 mg/dL [facility] eGFR CKD-EPI CR 2020 112 >59 mL/min/1.7 3 [facility] BUN/Creatinine Ratio 28(H) 9 - 20 [facility] Sodium 141 134 - 144 mmol/L [facility] Potassium 4.2 3.5 - 5.2 mmol/L [facility] Chloride 104 96 - 106 mmol/L [facility] Bicarbonate (CO2) 21 20 - 29 mmol/L [facility] Calcium 9.3 8.7 - 10.2 mg/dL [facility] Albumin 4.5 4.1 - 5.1 g/dL [facility] Phosphorus 3.5 2.8 - 4.1 mg/dL [facility] 12/09/2024 8:21 AM EDT 12/09/2024 us Javier Rodrigues MD LAB BLOOD ORDERABLES Final Re sult [facility] [address] [place] [address] from Last 3 Months Insurance [facility] ([id number]) [place] [id number] Care Teams Rechecker Relationship Specialty Start Date End Date Sam Goldberg [address] [place] [address] PCP - General Internal Medicine 12/05/24
--- OUTSIDE RECORDS SUMMARY | 2025-02-27 11:34 | XMS_ITS | Encounter Summary ---
Author Organization [facility] Address [address] [place] [address] Care Team Providers Care Communication Center Coordinator Name Role Phone Nathaniel Angeles MD Primary Care Provider [phone] Yolie Walls MD Unavailable [phone] Moiz Fan MD Unavailable [phone] Sam Bacon MD Primary Care Prov ider Unavailable Reason for Visit * Reason Onset Date Comments Letter 03/02/2023 Encounter Details Date Type Department Care Team Description 03/02/2023 Telephone Internal Medicine - [address], [address] [place] [address] Nathaniel Angeles MD [address] [place], [place] [id number] Letter Social History Tobacco Use Types Packs/Day Years [...] suspected to have Coronavirus/COVID-19? No / Unsure 03/02/2023 7:54 AM EDT documented as of this encounter Miscellaneous Notes * Telephone Encounter - Jaleesa Mckeonona - 03/02/2023 8:[address] angeles please advise see message below * Telephone Encounter - Kamilla Pierre - 03/02/2023 8:37 AM EDT Letter requested for: patient foster home Reason for letter: Stating that he's been in the office and that he will be seing for a physical soon Specific notations needed in body of letter: That he's been in the office for all his appt Date needed for completion: kathrine When completed: Will cigar packer and picker-call when completed: documented in this encounter Plan of Treatment Not on file documented as of this encounter Visit Diagnoses Not on filedocumented in this encounter Care Teams Communication Center Coordinator Relationship Specialty Start Date End Date Nathaniel Angeles MD PCP - General Internal Medicine 01/07/22 02/20/24 Sam Bacon MD [address] [place] [address] [place] [address] PCP - General Internal Medicine 02/21/24 Yolie Walls MD Specialist Cardiology 10/07/22 03/18/24 Moiz Fan MD [address] [place] [address] [place] [address] Specialist Cardiovascular Disease 11/22/23 documented as of this encounter
--- OUTSIDE RECORDS SUMMARY | 2025-02-27 11:34 | XMS_ITS | Encounter Summary ---
Author Organization [facility] Address [address] [place] [address] Care Team Providers Care Lead Setter Name Role Phone Keri Bar MD Primary Care Provider Tania Melendez MD Primary Care Provider Nathaniel Alberto MD Primary Care Provider [phone] Yolie Walls MD Unavailable [phone] Mioz Fan MD Unavailable [phone] Sam Bacon MD Primary Care Prov ider Unavailable Encounter Details Date Type Department Care Team Description 06/03/2020 Hospital Medical Records [address] [place] [id number] [place] [address] Social History Tobacco Use Types Packs/Day Years [...] have Coronavirus / COVID-19? No / Unsure 06/02/2020 10:55 AM EST documented as of this encounter Plan of Treatment Not on file documented as of this encounter Procedures Procedure Name Priority Date/Time Associated Diagnosis Comments OUTSIDE EKG Routine 06/03/2020 documented in this encounter Results * OUTSIDE EKG (06/03/2020) Provider Abstract CARDIOLOGY documented in this encounter Visit Diagnoses Not on filedocumented in this encounter Care Teams Lead Setter Relationship Specialty Start Date End Date Keri Bar MD PCP - General Internal Medicine 10/05/17 12/21/20 Tania Ramírez MD PCP - General Internal Medicine 12/22/20 01/06/22 Nathaniel Angeles MD PCP - General Internal Medicine 01/07/22 02/20/24 Sam Bacon MD [address] [place] [address] [place] [address] PCP - General Internal Medicine 02/21/24 Yolie Walls MD Specialist Cardiology 10/07/22 03/18/24 Moiz Fan MD [address] [place] [address] [place] [address] Specialist Cardiovascular Disease 11/22/23 documented as of this encounter
--- OUTSIDE RECORDS SUMMARY | 2025-02-27 11:34 | XMS_ITS | Encounter Summary ---
Author Organization [facility] Address [address] [place] [address] Care Team Providers Care Face Man Name Role Phone Nathaniel Angeles MD Primary Care Provider [phone] Yolie Walls MD Unavailable [phone] Moiz Fan MD Unavailable [phone] Sam Bacon MD Primary Care Prov ider Unavailable Reason for Visit * Reason Onset Date Comments refill request 08/03/2022 Encounter Details Date Type Department Care Team Description 08/03/2022 Refill Endocrinology - [place] [address] [place] [address] Lily Sepulveda PA-C [address] [place] [address] refill request Social History Tobacco Use Types [...] encounter Miscellaneous Notes * Telephone Encounter - Hortensia Coreas M.A. - 08/03/2022 1:29 PM EST Annabelle 02/14/22 Ov 08/30/22 Lab Results Component Value Date HGBA1C 13.8 2022 MALBUR 42.1 09/29/2021 MALBCR 38.6 09/29/2021 CHOL 166 2022 LDL 80 2022 HDL 45 2022 TRIG 205 2022 GLU 97 09/29/2021 CREAT 1.00 09/29/2021 * Telephone Encounter - Marika Ley - 08/03/2022 1:06 PM EST Patient would like script to be: E-PRESCRIBED/FAXED TO PHARMACY (THE MEDICATION REQUESTED IS ON THE MED [...] N/A Patients current insurance carrier is: Payor: [employer] [facility] MCR / Plan: [facility] / Product Type: HMO [id number] documented in this encounter Plan of Treatment Not on file documented as of this encounter Visit Diagnoses Diagnosis 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
--- OUTSIDE RECORDS SUMMARY | 2025-02-27 11:34 | XMS_ITS | Encounter Summary ---
Author Organization [employer] Address [address] [facility] 7t [place] [address] Care Team Providers Care Fur Feeder Name Role Phone Sam Bacon MD Primary Care Prov ider Reason for Visit * Reason Onset Date Comments Med Refill 11/06/2024 Encounter Details Date Type Department Care Team ([facility] Contact Info) Description 11/06/2024 Refill [facility]ED[facility] [address] [place] [address] Sam Bacon MD [address] [place] [address] Type 2 diabetes mellitus with hyperglycemia, with long-term current use of insulin ([facility]) Social History Tobacco Use Types Packs/Day Years [...] [facility] [address] [place] [address] Sam Bacon MD [address] [place] [address] 04/18/2025 8:00 AM EDT Office Visit [facility] ADULT DENTAL [address] [place] [address] Adolph Cummings documented as of this encounter Visit Diagnoses Diagnosis Type 2 diabetes mellitus with hyperglycemia, with long-term current use of insulin ([facility]) documented in this encounter Additional Health Concerns Assessment Noted Time PHQ-9 Depression Total Score: 11 024 9:07 AM EDT documented as of this encounter Care Teams Fur Feeder Relationship Specialty Start Date End Date Sam Bacon MD [address] [place] [address] PCP - General Internal Medicine 09/14/23 documented as of this encounter
--- OUTSIDE RECORDS SUMMARY | 2025-02-27 11:34 | XMS_ITS | Encounter Summary ---
Author Organization [facility] Address [address] [place] [address] Care Team Providers Care Document Coordinator Name Role Phone Nathaniel Angeles MD Primary Care Provider [phone] Yolie Walls MD Unavailable [phone] Moiz Fan MD Unavailable [phone] Sam Bacon MD Primary Care Prov ider Unavailable Encounter Details Date Type Department Care Team Description 10/13/2022 CGM Report Medical Records [address] [place] [address] Abstract, Provider Social History Tobacco Use Types [...] suspected to have Coronavirus/COVID-19? No / Unsure 10/13/2022 8:44 AM EDT documented as of this encounter Plan of Treatment Not on file documented as of this encounter Visit Diagnoses Not on filedocumented in this encounter Care Teams Document Coordinator Relationship Specialty Start Date End Date Nathaniel Angeles MD PCP - General Internal Medicine 01/07/22 02/20/24 Sam Bacon MD [address] [place] [address] Dr Johnson [address] [place] [address] PCP - General Internal Medicine 02/21/24 Yolie Walls MD Specialist Cardiology 10/07/22 03/18/24 Moiz Fan MD [address] [place] [address] Dr Johnson [address] [place] [address] Specialist Cardiovascular Disease 11/22/23 documented as of this encounter
--- OUTSIDE RECORDS SUMMARY | 2025-02-27 11:34 | XMS_ITS | Encounter Summary ---
Author Organization [facility] Address [address] [place] [address] Care Team Providers Care Car Sweeper Name Role Phone Nathaniel Angeles MD Primary Care Provider [phone] Yolie Walls MD Unavailable [phone] Moiz Fan MD Unavailable [phone] Sam Bacon MD Primary Care Prov ider Unavailable Reason for Visit * Reason Comments E-prescribe Rx Request Encounter Details Date Type Department Care Team Description 02/01/2024 Refill Endocrinology - [place] [address] [place], [place] [id number] Lily Sepulveda PA-C [address] [place] [address] E-prescribe Rx Request Social History Tobacco Use [...] encounter Miscellaneous Notes * Telephone Encounter - Margaret Alberts - 02/01/2024 12:50 PM EDT Lab Results Component Value Date HGBA1C 11.2 10/19/2023 MALBUR 87.1 10/19/2023 MALBCR 90.7 10/19/2023 CHOL 186 10/19/2023 LDL 118 10/19/2023 HDL 48 10/19/2023 TRIG 100 10/19/2023 GLU 235 12/06/2023 CREAT 1.00 10/19/2023 documented in this encounter Plan of Treatment Not on file documented as of this encounter Visit Diagnoses Diagnosis 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
--- OUTSIDE RECORDS SUMMARY | 2025-02-27 11:34 | XMS_ITS | Encounter Summary ---
Author Organization [facility] Address [address] [place] [address] Care Team Providers Care Bank Secrecy Act Officer Name Role Phone Nathaniel Angeles MD Primary Care Provider [phone] Yolie Walls MD Unavailable [phone] Moiz Fan MD Unavailable [phone] Sam Bacon MD Primary Care Prov ider Unavailable Reason for Referral * Non STEVE (Urgent) - Closed Specialty Diagnoses / Procedures Referred By Contjung t Referred To Contact ORTHOPEDICS / Orthopedic Procedures REFERRAL TO ORTHOPEDICS (IN NETWORK) Nathaniel Angeles MD [address] [place] [address] Tomer Jacobsen PA-C [address] [place] [address] Referral ID Status Reason Start Date Expiration Date Visits Re quested Visits Authorized [id number] Closed 10/05/2022 1 1 Reason for Visit * Reason Onset Date Comments Cotton Tipper Feedback 10/05/2022 ORTHOPEDICS Encounter Details Date Type Department Care Team Description 10/05/2022 Telephone Internal Medicine - [address], [address] [place] [address] Nathaniel Angeles MD [address] [place] [address] Cotton Tipper Feedback (ORTHOPEDICS) Social History Tobacco Use Types Packs/Day Years [...] suspected to have Coronavirus/COVID-19? No / Unsure 09/20/2022 9:37 AM EDT documented as of this encounter Plan of Treatment Not on file documented as of this encounter Visit Diagnoses Not on filedocumented in this encounter Care Teams Bank Secrecy Act Officer Relationship Specialty Start Date End Date Nathaniel Angeles MD PCP - General Internal Medicine 01/07/22 02/20/24 Sam Bacon MD [address] [place] [address] Dr [address] [place] [address] PCP - General Internal Medicine 02/21/24 Yolie Walls MD Specialist Cardiology 10/07/22 03/18/24 Moiz Fan MD [address] [place] [address] Dr Johnson [address] [place] [address] Specialist Cardiovascular Disease 11/22/23 documented as of this encounter
--- OUTSIDE RECORDS SUMMARY | 2025-02-27 11:34 | XMS_ITS | Encounter Summary ---
Author Organization [facility] Address [address] [place] [address] Care Team Providers Care Roof Truss Detailer Name Role Phone Nathaniel Angeles MD Primary Care Provider [phone] Yolie Walls MD Unavailable [phone] Moiz Fan MD Unavailable [phone] Sam Bacon MD Primary Care Prov ider Unavailable Encounter Details Date Type Department Care Team Description 02/16/2022 CGM Report Medical Records [address] [place] [address] Abstract, Provider Social History Tobacco Use Types [...] suspected to have Coronavirus/COVID-19? No / Unsure 2022 1:10 PM EDT documented as of this encounter Plan of Treatment Not on file documented as of this encounter Visit Diagnoses Not on filedocumented in this encounter Care Teams Roof Truss Detailer Relationship Specialty Start Date End Date Nathaniel Angeles MD PCP - General Internal Medicine 01/07/22 02/20/24 Sam Bacon MD [address] [place] [address] Dr Johnson [address] [place] [address] PCP - General Internal Medicine 02/21/24 Yolie Walls MD Specialist Cardiology 10/07/22 03/18/24 Moiz Fan MD [address] [place] [address] Dr Johnson [address] [place] [address] Specialist Cardiovascular Disease 11/22/23 documented as of this encounter
--- OUTSIDE RECORDS SUMMARY | 2025-02-27 11:34 | XMS_ITS | Encounter Summary ---
Author Organization [facility] Address [address] [place] [address] Care Team Providers Care Lead Material Handler Name Role Phone Keri Bar MD Primary Care Provider Tania Melendez MD Primary Care Provider Nathaniel Alberto MD Primary Care Provider [phone] Yolie Walls MD Unavailable [phone] Moiz Fan MD Unavailable [phone] Sam Bacon MD Primary Care Prov ider Unavailable Reason for Visit * Reason Onset Date Comments APPOINTMENT 06/02/2020 Encounter Details Date Type Department Care Team Description 06/02/2020 Telephone Adult Medicine [address] [address] Keri Bar MD APPOINTMENT Social History Tobacco Use Types Packs/Day Years [...] Telephone Encounter - Gallito Fernández MD - 06/02/2020 1:09 PM EST Resent prescriptions to [facility]; but the prescriptions from October had 1 year of refills. * Telephone Encounter - Keri Bar MD - 06/02/2020 11:30 AM EST Seeing pt in followup ER visit for nausea/vomiting. Needs appt with Dr. Fernández as well as refill of his Dexcom equipment. He received the first shipment back in October and used for 2 months but has not received anything since. Sugars ~200s fasting - sometimes up to 400s after eating; uncontrolled documented in this encounter Plan of Treatment Not on file documented as of this encounter Visit Diagnoses Not on filedocumented in this encounter Care Teams Lead Material Handler Relationship Specialty Start Date End Date Keri Bar MD PCP - General Internal Medicine 10/05/17 12/21/20 Tania Ramírez MD PCP - General Internal Medicine 12/22/20 01/06/22 Nathaniel Angeles MD PCP - General Internal Medicine 01/07/22 02/20/24 Sam Bacon MD [address] [place] [address] [place] [address] PCP - General Internal Medicine 02/21/24 Yolie Walls MD Specialist Cardiology 10/07/22 03/18/24 Moiz Fan MD [address] [place] [address] [place] [address] Specialist Cardiovascular Disease 11/22/23 documented as of this encounter
--- OUTSIDE RECORDS SUMMARY | 2025-02-27 11:34 | XMS_ITS | Encounter Summary ---
Author Organization [facility] Address [address] [place] [address] Care Team Providers Care Fork Operator Name Role Phone Keri Bar MD Primary Care Provider Tania Melendez MD Primary Care Provider Nathaniel Alberto MD Primary Care Provider [phone] Yolie Walls MD Unavailable [phone] Moiz Fan MD Unavailable [phone] Sam Bacon MD Primary Care Prov ider Unavailable Encounter Details Date Type Department Care Team Description 06/02/2020 Orders Only Adult Medicine B - [address] [address] Gallito Fernández MD Social History Tobacco Use [...] on filedocumented in this encounter Care Teams Fork Operator Relationship Specialty Start Date End Date Keri Bar MD PCP - General Internal Medicine 10/05/17 12/21/20 Tania Ramírez MD PCP - General Internal Medicine 12/22/20 01/06/22 Nathaniel Angeles MD PCP - General Internal Medicine 01/07/22 02/20/24 Sam Bacon MD [address] [place] [address] [place] [address] PCP - General Internal Medicine 02/21/24 Yolie Walls MD Specialist Cardiology 10/07/22 03/18/24 Moiz Fan MD [address] [place] [address] [place] [address] Specialist Cardiovascular Disease 11/22/23 documented as of this encounter
--- OUTSIDE RECORDS SUMMARY | 2025-02-27 11:34 | XMS_ITS | Encounter Summary ---
Author Organization [facility] Address [address] [place] [address] Care Team Providers Care Program And Research Coordinator Name Role Phone Nathaniel Angeles MD Primary Care Provider [phone] Yolie Walls MD Unavailable [phone] Moiz Fan MD Unavailable [phone] Sam Bacon MD Primary Care Prov ider Unavailable Encounter Details Date Type Department Care Team Description 05/30/2022 [facility] Medical Records [address] [place] [address] Social History Tobacco Use Types Packs/Day Years [...] Recorded In the last 10 days, have altagracia u been in contact with someone who was confirmed or suspected to have Coronavirus/COVID-19? No / Unsure 05/09/2022 12:54 PM EST documented as of this encounter Plan of Treatment Not on file documented as of this encounter Procedures Procedure Name Priority Date/Time Associated Diagnosis Comments OUTSIDE ECHO Routine 05/31/2022 OUTSIDE MRI/MRA Routine 05/31/2022 OUTSIDE MRI/MRA Routine 05/31/2022 OUTSIDE EKG Routine 05/30/2022 OUTSIDE ULTRASOUND Routine 05/30/2022 OUTSIDE PLAIN FILM Routine 05/30/2022 documented in this encounter Results * OUTSIDE MRI/MRA (05/31/2022) Provider Abstract RADIOLOGY * OUTSIDE MRI/MRA (05/31/2022) Provider Abstract RADIOLOGY * OUTSIDE ECHO (05/31/2022) Provider Abstract CARDIOLOGY * OUTSIDE ULTRASOUND (05/30/2022) Provider Abstract RADIOLOGY * OUTSIDE PLAIN FILM (05/30/2022) Provider Abstract RADIOLOGY * OUTSIDE EKG (05/30/2022) Provider Abstract CARDIOLOGY documented in this encounter Visit Diagnoses Not on filedocumented in this encounter Care Teams Program And Research Coordinator Relationship Specialty Start Date End Date Nathaniel Angeles MD PCP - General Internal Medicine 01/07/22 02/20/24 Sam Bacon MD [address] [place] [address] [place] [address] PCP - General Internal Medicine 02/21/24 Yolie Walls MD Specialist Cardiology 10/07/22 03/18/24 Moiz Fan MD [address] [place] [address] [place] [address] Specialist Cardiovascular Disease 11/22/23 documented as of this encounter
--- OUTSIDE RECORDS SUMMARY | 2025-02-27 11:34 | XMS_ITS | Encounter Summary ---
Author Organization [facility] Address [address] [place] [address] Care Team Providers Care Reading Coach Name Role Phone Tania Ramírez MD Primary Care Provider Nathaniel Alberto MD Primary Care Provider [phone] Yolie Walls MD Unavailable [phone] Moiz Fan MD Unavailable [phone] Sam Bacon MD Primary Care Prov ider Unavailable Reason for Visit * Reason Onset Date Comments medication problems 10/04/2021 Encounter Details Date Type Department Care Team Description 10/04/2021 Telephone [facility] [address] [place] [address] Lily Sepulveda PA-C [address] [place] [address] medication problems Social History Tobacco Use Types Packs/Day Years [...] suspected to have Coronavirus/COVID-19? No / Unsure 09/29/2021 8:24 AM EDT documented as of this encounter Miscellaneous Notes * Telephone Encounter - Darlyn Bella M.A. - 10/04/2021 12:58 PM EDT Spoke to pharmacy. They said that patient picked up his [place] on the . L/M for patient to return call. * Telephone Encounter - Brisa Peralta - 10/04/2021 11:47 AM EDT Who is calling? The patient Name of the medication BD Pen Needle Monique U/F 32G X 4 MM (Insulin Pen Needle) What is the specific problem or interaction? Patient states that he did not receive a refill for his needles. He states he has his insulins, but no needles. [facility] did not receive rx sent on 09/29. If the patient is having a problem with taking the med - how long has the problem been going on? N/A documented in this encounter Plan of Treatment Not on file documented as of this encounter Visit Diagnoses Not on filedocumented in this encounter Care Teams Reading Coach Relationship Specialty Start Date End Date Tania Ramírez MD PCP - General Internal Medicine 12/22/20 01/06/22 Nathaniel Angeles MD PCP - General Internal Medicine 01/07/22 02/20/24 Sam Bacon MD [address] [place] [address] [place] [address] PCP - General Internal Medicine 02/21/24 Yolie Walls MD Specialist Cardiology 10/07/22 03/18/24 Moiz Fan MD [address] [place] [address] [place] [address] Specialist Cardiovascular Disease 11/22/23 documented as of this encounter
--- OUTSIDE RECORDS SUMMARY | 2025-02-27 11:34 | XMS_ITS | Encounter Summary ---
Author Organization [facility] Address [address] [place] [address] Care Team Providers Care Research Statistician Name Role Phone Nathaniel Angeles MD Primary Care Provider [phone] Yolie Walls MD Unavailable [phone] Moiz Fan MD Unavailable [phone] Sam Bacon MD Primary Care Prov ider Unavailable Reason for Visit * Reason Onset Date Comments Appointment Cancelled 08/18/2022 Encounter Details Date Type Department Care Team Description 08/18/2022 Telephone [facility] Medical [facility] [address] [address] Priyanka Isaac MD [address] [address] Appointment Cancelled Social History Tobacco Use Types Packs/Day Years [...] on filedocumented in this encounter Care Teams Research Statistician Relationship Specialty Start Date End Date Nathaniel Angeles MD PCP - General Internal Medicine 01/07/22 02/20/24 Sam Bacon MD [address] [place] [address] [place] [address] PCP - General Internal Medicine 02/21/24 Yolie Walls MD Specialist Cardiology 10/07/22 03/18/24 Moiz Fan MD [address] [place] [address] [place] [address] Specialist Cardiovascular Disease 11/22/23 documented as of this encounter
--- OUTSIDE RECORDS SUMMARY | 2025-02-27 11:34 | XMS_ITS | Encounter Summary ---
Author Organization [facility] Address [address] [place] [address] Care Team Providers Care Road Manager Name Role Phone Nathaniel Angeles MD Primary Care Provider [phone] Yolie Walls MD Unavailable [phone] Moiz Fan MD Unavailable [phone] Sam Bacon MD Primary Care Prov ider Unavailable Reason for Visit * Reason Onset Date Comments refill request 04/19/2022 Encounter Details Date Type Department Care Team Description 04/19/2022 Refill Internal Medicine - [address], [address] [place] [address] Nathaniel Angeles MD [address] [place], [place] [id number] refill request Social History Tobacco Use Types [...] suspected to have Coronavirus/COVID-19? No / Unsure 04/08/2022 8:45 AM EDT documented as of this encounter Miscellaneous Notes * Telephone Encounter - Shelbi Mullins MA - 04/22/2022 3:20 PM EDT Lab Results Component Value Date NA 138 09/29/2021 K 3.5 09/29/2021 CO2 30 09/29/2021 CL 101 09/29/2021 BUN 18 09/29/2021 CREAT 1.00 09/29/2021 GLU 97 09/29/2021 ALB 5.0 09/29/2021 SGOT 27 09/29/2021 SGPT 28 09/29/2021 TBILI 0.8 09/29/2021 ALKPHOS 72 09/29/2021 TP 8.9 09/29/2021 CA 10.0 09/29/2021 GFR > 60 09/29/2021 BP Readings from Last 5 Encounters: 04/08/22 116/72 02/15/22 120/78 02/14/22 130/78 01/07/22 128/74 09/29/21 128/80 * Telephone Encounter - Nia Meyers - 04/19/2022 11:47 AM EDT DAMIEN 04/08/2022 NOV 05/09/2022 documented in this encounter Plan of Treatment Not on file documented as of this encounter Visit Diagnoses Not on filedocumented in this encounter Care Teams Road Manager Relationship Specialty Start Date End Date Nathaniel Angeles MD PCP - General Internal Medicine 01/07/22 02/20/24 Sam Bacon MD [address] [place] [address] [place] [address] PCP - General Internal Medicine 02/21/24 Yolie Walls MD Specialist Cardiology 10/07/22 03/18/24 Moiz Fan MD [address] [place] [address] [place] [address] Specialist Cardiovascular Disease 11/22/23 documented as of this encounter
--- OUTSIDE RECORDS SUMMARY | 2025-02-27 11:34 | XMS_ITS | Encounter Summary ---
Author Organization [facility] Address [address] [place] [address] Care Team Providers Care Blade Grinder Name Role Phone Nathaniel Angeles MD Primary Care Provider [phone] Yolie Walls MD Unavailable [phone] Moiz Fan MD Unavailable [phone] Sam Bacon MD Primary Care Prov ider Unavailable Encounter Details Date Type Department Care Team Description 11/18/2022 Franchise Consultant Report Medical Records [address] [place] [address] Hang Cheng, Social History Tobacco Use Types Packs/Day Years [...] suspected to have Coronavirus/COVID-19? No / Unsure 11/15/2022 11:18 AM EDT documented as of this encounter Plan of Treatment Not on file documented as of this encounter Visit Diagnoses Not on filedocumented in this encounter Care Teams Blade Grinder Relationship Specialty Start Date End Date Nathaniel Angeles MD PCP - General Internal Medicine 01/07/22 02/20/24 Sam Bacon MD [address] [place] [address] Dr Johnson [address] [place] [address] PCP - General Internal Medicine 02/21/24 Yolie aWlls MD Specialist Cardiology 10/07/22 03/18/24 Moiz Fan MD [address] [place] [address] [place] [address] Specialist Cardiovascular Disease 11/22/23 documented as of this encounter
--- OUTSIDE RECORDS SUMMARY | 2025-02-27 11:34 | XMS_ITS | Encounter Summary ---
Author Organization [facility] Address [address] [place] [address] Care Team Providers Care Scheduling Assistant Name Role Phone Nathaniel Angeles MD Primary Care Provider [phone] Yolie Walls MD Unavailable [phone] Moiz Fan MD Unavailable [phone] Sam Bacon MD Primary Care Prov ider Unavailable Encounter Details Date Type Department Care Team Description 01/19/2023 Hospital Medical Records [address] [place] [address] Priyanka Isaac MD [address] [place] [address] [address] [place], [place] [id number] Social History Tobacco Use Types Packs/Day Years [...] on filedocumented in this encounter Care Teams Scheduling Assistant Relationship Specialty Start Date End Date Nathaniel Angeles MD PCP - General Internal Medicine 01/07/22 02/20/24 Sam Bacon MD [address] [place] [address] [place] [address] PCP - General Internal Medicine 02/21/24 Yolie Walls MD Specialist Cardiology 10/07/22 03/18/24 Moiz Fan MD [address] [place] [address] [place] [address] Specialist Cardiovascular Disease 11/22/23 documented as of this encounter
--- OUTSIDE RECORDS SUMMARY | 2025-02-27 11:34 | XMS_ITS | Encounter Summary ---
Author Organization [facility] Address [address] [place] [address] Care Team Providers Care Family Living Educator Name Role Phone aTnia Ramírez MD Primary Care Provider Nathaniel Alberto MD Primary Care Provider [phone] Yolie Walls MD Unavailable [phone] Moiz Fan MD Unavailable [phone] Sam Bacon MD Primary Care Prov ider Unavailable Reason for Visit * Reason Comments E-prescribe Rx Request Encounter Details Date Type Department Care Team Description 10/31/2021 Refill Adult Medicine [address] [id number] Heather Jeff PA [address] [place] [address] [phone] E-prescribe Rx Request Social History Tobacco Use [...] encounter Miscellaneous Notes * Telephone Encounter - Tania Ramírez - 11/11/2021 11:53 AM EDT Please find out from pt if he is still on lithium. His psycahitry neeeds to know that he is on BP med that may interact with his lithium if he is on it. * Telephone Encounter - Janee Jackman M.A. - 11/11/2021 9:53 AM EDT Lab Results Component Value Date NA 138 09/29/2021 K 3.5 09/29/2021 CO2 30 09/29/2021 CL 101 09/29/2021 BUN 18 09/29/2021 CREAT 1.00 09/29/2021 GLU 97 09/29/2021 CA 10.0 09/29/2021 GFR > 60 09/29/2021 DAMIEN 05/26/21 *NO Show 10/15/21 NOV 01/31/22 * Telephone Encounter - Rebecca Yee - 11/11/2021 9:48 AM EDT Patient scheduled for 01/31/[address] Ramírez's team * Telephone Encounter - Pam Salcedo - 11/11/2021 9:15 AM EDT L/m for pt call back make appt (2nd??attempt) * Telephone Encounter - Pam Salcedo - 11/05/2021 12:45 PM EDT Patient would like script to be: E-PRESCRIBED/FAXED TO PHARMACY WHEN WAS THE PATIENT'S LAST APPOINTMENT IN ADULT MEDICINE? 05/26/21 WHEN WAS THE LAST TIME THE PATIENT SAW THEIR PCP? Same as above Does patient have an upcoming appointment? No-unable to reach [facility] to call for appointment due to refill request. Appt due (THE MEDICATION REQUESTED IS ON THE MED [...] N/A Patients current insurance carrier is: Payor: [employer] [facility] [employer] M[employer] / Plan: [facility] / Product Type: HMO [id number] documented in this encounter Plan of Treatment Not on file documented as of this encounter Visit Diagnoses Not on filedocumented in this encounter Care Teams Family Living Educator Relationship Specialty Start Date End Date Tania Ramírez MD PCP - General Internal Medicine 12/22/20 01/06/22 Nathaniel Angeles MD PCP - General Internal Medicine 01/07/22 02/20/24 Sam Bacon MD [address] [place] [address] [place] [address] PCP - General Internal Medicine 02/21/24 Yolie Walls MD Specialist Cardiology 10/07/22 03/18/24 Moiz Fan MD [address] [place] [address] [place], [place] [id number] Specialist Cardiovascular Disease 11/22/23 documented as of this encounter
--- OUTSIDE RECORDS SUMMARY | 2025-02-27 11:34 | XMS_ITS | Encounter Summary ---
Author Organization [employer] Address [address] 7[address] [place] [address] Care Team Providers Care Marketing Support Manager Name Role Phone Sam Bacon MD Primary Care Prov ider Encounter Details Date Type Department Care Team ([facility] st Contact Info) Description 12/30/2024 Orders Only [facility] CHC MED & PEDS [address] [place] [address] Provider, MD Nano Social History Tobacco Use Types Packs/Day Years [...] Office Visit [facility] MED & PEDS [address] [place] [address] Sam Bacon MD [address] [place] [address] 04/18/2025 8:00 AM EDT Office Visit [facility] ADULT DENTAL [address] [place] [address] Ad[place] Cummings documented as of this encounter Procedures Procedure Name Priority Date/Time Associated Diagnosis Comments ECG 12-LEAD Routine 12/25/2024 9:06 AM EDT documented in this encounter Results * ECG 12 lead (12/25/2024 9:06 AM EDT) us Historical Provider ECG ORDERABLES Final Res ult documented in this encounter Visit Diagnoses Not on filedocumented in this encounter Additional Health Concerns Assessment Noted Time PHQ-9 Depression Total Score: 0 12/27/19 9:33 AM EDT documented as of this encounter Care Teams Marketing Support Manager Relationship Specialty Start Date End Date Sam Bacon MD [address] [place] [address] PCP - General Internal Medicine 09/14/23 documented as of this encounter
--- OUTSIDE RECORDS SUMMARY | 2025-02-27 11:34 | XMS_ITS | Encounter Summary ---
Author Organization [employer] Address [address] 7[address] [place] [address] Care Team Providers Care It Infrastructure Architect Name Role Phone Sam Bacon MD Primary Care Prov ider Reason for Visit * Reason Onset Date Comments Referral 11/05/2024 Encounter Details Date Type Department Care Team ([facility] Contact Info) Description 11/05/2024 Telephone [facility] CHC MED & PEDS [address] [place], [place] [phone] Sam Bacon MD [address] [place] [address] Referral Social History Tobacco Use Types Packs/Day Years [...] encounter Miscellaneous Notes * Telephone Encounter - Marguerite Taylor RN - 11/05/2024 2:37 PM EDT Reached out to patient via [employer] messaging. Instructed patient to contact ortho office and podiatry office. Routing message to provider for new Physical Therapy referral. * Telephone Encounter - Leeanna Patterson - 11/05/2024 10:43 AM EDT Tc from t requesting new referrals. Pt stated previous ones were closed due to pt not keeping appointments. 1 Physical therapy 2 Orthopedic 3 Podiatry If any questions contact pt at [phone] documented in this encounter Plan of Treatment Upcoming Encounters Date Type Department Care Team (Late st Contact Info) Description 03/27/2025 10:15 AM EDT Office Visit [facility] MED & PEDS [address] [place] [address] Sam Bacon MD [address] [place] [address] 04/18/2025 8:00 AM EDT Office Visit [facility] CHC ADULT DENTAL [address] [place] [address] Ad[place] Cummings documented as of this encounter Visit Diagnoses Not on filedocumented in this encounter Additional Health Concerns Assessment Noted Time PHQ-9 Depression Total Score: 11 024 9:07 AM EDT documented as of this encounter Care Teams It Infrastructure Architect Relationship Specialty Start Date End Date Sam Bacon MD [address] [place] [address] PCP - General Internal Medicine 09/14/23 documented as of this encounter
--- OUTSIDE RECORDS SUMMARY | 2025-02-27 11:34 | XMS_ITS | Encounter Summary ---
Author Organization [facility] Address [address] [place] [address] Care Team Providers Care Worksite Wellness Practitioner Name Role Phone Nathaniel Angeles MD Primary Care Provider [phone] Yolie Walls MD Unavailable [phone] Moiz Fan MD Unavailable [phone] Sam Bacon MD Primary Care Prov ider Unavailable Encounter Details Date Type Department Care Team Description 12/27/2023 Orders Only Medical Records [address] [place] [address] Kasia Miles MD [address] [place] [address] [address] [place], [place] [phone] Social History Tobacco Use Types Packs/Day Years [...] Associated Diagnosis Comments OUTSIDE PLAIN FILM Routine 12/27/2023 documented in this encounter Results * OUTSIDE PLAIN FILM (12/27/2023) Kasia Miles MD RADIOLOGY documented in this encounter Visit Diagnoses Not on filedocumented in this encounter Care Teams Worksite Wellness Practitioner Relationship Specialty Start Date End Date Nathaniel Angeles MD PCP - General Internal Medicine 01/07/22 02/20/24 Sam Bacon MD [address] [place] [address] Dr [address] [place] [address] PCP - General Internal Medicine 02/21/24 Yolie Walls MD Specialist Cardiology 10/07/22 03/18/24 Moiz Fan MD [address] [place] [address] Dr Johnson [address] [place] [address] Specialist Cardiovascular Disease 11/22/23 documented as of this encounter
--- OUTSIDE RECORDS SUMMARY | 2025-02-27 11:34 | XMS_ITS | Encounter Summary ---
Author [facility] Address [address] [place] [address] Care Team Providers Care Paid Search Specialist Name Role Phone Nathaniel Angeles MD Primary Care Provider [phone] Yolie Walls MD Unavailable [phone] Moiz Fan MD Unavailable [phone] Sam Bacon MD Primary Care Prov ider Unavailable Reason for Visit * Reason Onset Date Comments APPOINTMENT 08/31/2022 Encounter Details Date Type Department Care Team Description 08/31/2022 Telephone [facility] [address] [place] [address] Lily Sepulveda PA-C [address] [place] [address] APPOINTMENT Social History Tobacco Use Types Packs/Day [...] suspected to have Coronavirus/COVID-19? No / Unsure 08/31/2022 7:59 AM EST documented as of this encounter Miscellaneous Notes * Telephone Encounter - Darlyn Bella M.A. - 08/31/2022 4:31 PM EST Images from the original note were not included. TOBY Vera Please schedule patient a 2-week follow-up okay to double book A1c highly elevated L/M for patient to return call and schedule appointment. documented in this encounter Plan of Treatment Not on file documented as of this encounter Visit Diagnoses Not on filedocumented in this encounter Care Teams Paid Search Specialist Relationship Specialty Start Date End Date Nathaniel Angeles MD PCP - General Internal Medicine 01/07/22 02/20/24 Sam Bacon MD [address] [place] [address] Dr [address] [place] [address] PCP - General Internal Medicine 02/21/24 Yolie Walls MD Specialist Cardiology 10/07/22 03/18/24 Moiz Fan MD [address] [place] [address] Dr Johnson [address] [place] [address] Specialist Cardiovascular Disease 11/22/23 documented as of this encounter
--- OUTSIDE RECORDS SUMMARY | 2025-02-27 11:34 | XMS_ITS | Encounter Summary ---
Author Organization [employer] Address [address] 7[address] [place] [address] Care Team Providers Care Long Chain Quiller Tender Name Role Phone Sam Bacon MD Primary Care Prov ider Encounter Details Date Type Department Care Team ([facility] st Contact Info) Description 11/06/2024 Orders Only [facility] CHC MED & PEDS [address] [place] [address] Provider, MD Nano Social History Tobacco Use [...] 03/27/2025 10:15 AM EDT Office [facility] MED [facility]ED[facility] [address] [place] [address] Sam Bacon MD [address] [place] [address] 04/18/2025 8:00 AM EDT Office Visit [facility] ADULT DENTAL [address] [place] [address] Ad[place] Cummings documented as of this encounter Procedures Procedure Name Priority Date/Time Associated Diagnosis Comments DIABETES EYE EXAM Routine 11/06/2024 10:09 AM EDT documented in this encounter Results * Hm Diabetes Eye Exam (11/06/2024 10:09 AM EDT) Historical Provider HEALTH MAINTENANCE Final Result documented in this encounter Visit Diagnoses Not on filedocumented in this encounter Additional Health Concerns Assessment Noted Time PHQ-9 Depression Total Score: 11 024 9:07 AM EDT documented as of this encounter Care Teams Long Chain Quiller Tender Relationship Specialty Start Date End Date Sam Bacon MD [address] [place] [address] PCP - General Internal Medicine 09/14/23 documented as of this encounter
--- OUTSIDE RECORDS SUMMARY | 2025-02-27 11:34 | XMS_ITS | Encounter Summary ---
Author Organization [facility] Address [address] [place] [address] Care Team Providers Care Nuclear Licensing Engineer Name Role Phone Nathaniel Angeles MD Primary Care Provider Yolie Walls MD Unavailable [phone] Moiz Fan MD Unavailable [phone] Sam Bacon MD Primary Care Prov ider Unavailable Encounter Details Date Type Department Care Team Description 12/02/2022 CGM Report Medical Records [address] [place] [address] Abstract, Provider Social History Tobacco Use Types [...] on filedocumented in this encounter Care Teams Nuclear Licensing Engineer Relationship Specialty Start Date End Date Nathaniel Angeles MD PCP - General Internal Medicine 01/07/22 02/20/24 Sam Bacon MD [address] [place] [address] Dr Johnson [address] [place] [address] PCP - General Internal Medicine 02/21/24 Yolie Walls MD Specialist Cardiology 10/07/22 03/18/24 Moiz Fan MD [address] [place] [address] Dr Johnson [address] [place] [address] Specialist Cardiovascular Disease 11/22/23 documented as of this encounter
--- OUTSIDE RECORDS SUMMARY | 2025-02-27 11:34 | XMS_ITS | Encounter Summary ---
Author Organization [employer] Address [address] [facility] 7t [place] [address] Care Team Providers Care Electrolytic De Scaler Name Role Phone Sam Bacon MD Primary Care Prov ider Reason for Visit * Reason Onset Date Comments Med Refill 11/06/2024 Encounter Details Date Type Department Care Team ([facility] Contact Info) Description 11/06/2024 Refill [facility] CHC MED & PEDS [address] [place] [address] Sam Bacon MD [address] [place] [address] Social History Tobacco Use Types Packs/Day Years [...] 10:15 AM EDT Office Visit [facility] MED & PEDS [address] [place] [address] Sam Bacon MD [address] [place] [address] 04/18/2025 8:00 AM EDT Office Visit [facility] ADULT DENTAL [address] [place] [address] [place] Cummings documented as of this encounter Visit Diagnoses Not on filedocumented in this encounter Additional Health Concerns Assessment Noted Time PHQ-9 Depression Total Score: 11 024 9:07 AM EDT documented as of this encounter Care Teams Electrolytic De Scaler Relationship Specialty Start Date End Date Sam Bacon MD [address] [place] [address] PCP - General Internal Medicine 09/14/23 documented as of this encounter
--- OUTSIDE RECORDS SUMMARY | 2025-02-27 11:34 | XMS_ITS | Encounter Summary ---
[facility] Address [address] [place] [address] Care Team Providers Care Business Initiatives Manager Name Role Phone Keri Bar MD Primary Care Provider Tania Melendez MD Primary Care Provider Nathaniel Alberto MD Primary Care Provider [phone] Yolie Walls MD Unavailable [phone] Moiz Fan MD Unavailable [phone] Sam Bacon MD Primary Care Prov ider Unavailable Reason for Visit * Reason Comments E-prescribe Rx Request Encounter Details Date Type Department Care Team Description 12/14/2020 Refill Adult Medicine B - [address] [address] Keri Bar MD E-prescribe Rx Request Social History Tobacco [...] encounter Miscellaneous Notes * Telephone Encounter - Norma Casey C.M.A - 12/15/2020 10:52 AM EDT Lab Results Component Value Date NA 139 04/24/2020 K 4.5 04/24/2020 CO2 28 04/24/2020 CL 105 04/24/2020 BUN 15 04/24/2020 CREAT 0.76 04/24/2020 GLU 141 04/24/2020 CA 9.8 04/24/2020 GFR > 60 04/24/2020 * Telephone Encounter - Alicia Serra - 12/14/2020 10:09 AM EDT Patient would like script to be: E-PRESCRIBED/FAXED TO PHARMACY WHEN WAS THE PATIENT'S LAST APPOINTMENT IN ADULT MEDICINE? 08/13/20 WHEN WAS THE LAST TIME THE PATIENT SAW THEIR PCP? Same as above Does patient have an upcoming appointment? No-unable to reach [facility] to call for appointment due to refill request. (THE MEDICATION REQUESTED IS ON THE MED [...] N/A Patients current insurance carrier is: Payor: [employer] MCR / Plan: [facility] / Product Type: HMO [id number] documented in this encounter Plan of Treatment Not on file documented as of this encounter Visit Diagnoses Not on filedocumented in this encounter Care Teams Business Initiatives Manager Relationship Specialty Start Date End Date Keri Bar MD PCP - General Internal Medicine 10/05/17 12/21/20 Tania Ramírez MD PCP - General Internal Medicine 12/22/20 01/06/22 Nathaniel Angeles MD PCP - General Internal Medicine 01/07/22 02/20/24 Sam Bacon MD [address] [place] [address] [place] [address] PCP - General Internal Medicine 02/21/24 Yolie Walls MD Specialist Cardiology 10/07/22 03/18/24 Moiz Fan MD [address] [place] [address] [place] [address] Specialist Cardiovascular Disease 11/22/23 documented as of this encounter
--- OUTSIDE RECORDS SUMMARY | 2025-02-27 11:34 | XMS_ITS | Encounter Summary ---
Author [facility] Address [address] [place] [address] Care Team Providers Care Health Technician Name Role Phone Keri Bar MD Primary Care Provider Tania Melendez MD Primary Care Provider Nathaniel Alberto MD Primary Care Provider [phone] Yolie Walls MD Unavailable [phone] Moiz Fan MD Unavailable [phone] Sam Bacon MD Primary Care Prov ider Unavailable Encounter Details Date Type Department Care Team Description 06/15/2018 Authorization Manager Report Medical Records [address] [place] [address] Antnoio Crocker MD Social History Tobacco Use Types Packs/Day [...] on filedocumented in this encounter Care Teams Health Technician Relationship Specialty Start Date End Date Keri Bar MD PCP - General Internal Medicine 10/05/17 12/21/20 Tania Ramírez MD PCP - General Internal Medicine 12/22/20 01/06/22 Nathaniel Angeles MD PCP - General Internal Medicine 01/07/22 02/20/24 Sam Bacon MD [address] [place] [address] [place] [address] PCP - General Internal Medicine 02/21/24 Yolie Walls MD Specialist Cardiology 10/07/22 03/18/24 Moiz Fan MD [address] [place] [address] [place] [address] Specialist Cardiovascular Disease 11/22/23 documented as of this encounter
--- OUTSIDE RECORDS SUMMARY | 2025-02-27 11:34 | XMS_ITS | Encounter Summary ---
[facility] Address [address] [place] [address] Care Team Providers Care Press Operator Carbon Blocks Name Role Phone Tania Ramírez MD Primary Care Provider Nathaniel Alberto MD Primary Care Provider [phone] Yolie Walls MD Unavailable [phone] Moiz Fan MD Unavailable [phone] Sam Bacon MD Primary Care Prov ider Unavailable Reason for Visit * Reason Onset Date Comments Prior Authorization 03/18/2021 Encounter Details Date Type Department Care Team Description 03/18/2021 Telephone Adult [address] [address] Tania Ramírez MD Prior Authorization Social History Tobacco Use Types Packs/Day Years [...] have Coronavirus / COVID-19? No / Unsure 03/17/2021 9:58 AM EDT documented as of this encounter Miscellaneous Notes * Telephone Encounter - Shy Rose - 03/18/2021 3:10 PM EDT Prior Authorization for Medication-do not complete and send this encounter unless you have the fax from the pharmacy. ? Is this a Cover My Meds request: Yes -- Blair Code [id number] ?? Name of Medication Continuous Blood Gluc Transmit (Dexcom G6 Transmitter) Misc ?? Dose of Medication ?? What is the RX # from the faxed refill? ?? How does patient take this med? ?? What Pharmacy did the fax come from: [email or web address] ?? Pharmacy fax #: [phone] ?? Third Republican Information from fax: ?? What Prescription Plan does the patient have? [facility] ?? BIN/PCN if applicable: n/a ?? Cardholder ID:n/a ?? Person Code: n/a ?? Relationship Code: n/a ?? Help desk phone: n/a documented in this encounter Plan of Treatment Not on file documented as of this encounter Visit Diagnoses Not on filedocumented in this encounter Care Teams Press Operator Carbon Blocks Relationship Specialty Start Date End Date Tania Ramírez MD PCP - General Internal Medicine 12/22/20 01/06/22 Nathaniel Angeles MD PCP - General Internal Medicine 01/07/22 02/20/24 Sam Bacon MD [address] [place] [address] [place] [address] PCP - General Internal Medicine 02/21/24 Yolie Walls MD Specialist Cardiology 10/07/22 03/18/24 Moiz Fan MD [address] [place] [address] Dr [place], [place] [address] Specialist Cardiovascular Disease 11/22/23 documented as of this encounter
--- OUTSIDE RECORDS SUMMARY | 2025-02-27 11:34 | XMS_ITS | Encounter Summary ---
Author Organization [facility] Address [address] [place] [address] Care Team Providers Care Tso Name Role Phone Nathaniel Angeles MD Primary Care Provider [phone] Yolie Walls MD Unavailable [phone] Moiz Fan MD Unavailable [phone] Sam Bacon MD Primary Care Prov ider Unavailable Encounter Details Date Type Department Care Team Description 05/10/2022 SCAN [facility] Medical [facility] [address] [facility] [address] [place] [address] No Castro PA-C [address] [facility] [address] [place] [address] Social History Tobacco Use Types Packs/Day Years [...] on filedocumented in this encounter Care Teams Tso Relationship Specialty Start Date End Date Nathaniel Angeles MD PCP - General Internal Medicine 01/07/22 02/20/24 Sam Bacon MD [address] [place] [address] [place] [address] PCP - General Internal Medicine 02/21/24 Yolie Walls MD Specialist Cardiology 10/07/22 03/18/24 Moiz Fan MD [address] [place] [address] [place] [address] Specialist Cardiovascular Disease 11/22/23 documented as of this encounter
--- OUTSIDE RECORDS SUMMARY | 2025-02-27 11:34 | XMS_ITS | Encounter Summary ---
Author Organization [facility] Address [address] [place] [address] Care Team Providers Care Auto Parts Clerk Name Role Phone Nathaniel Angeles MD Primary Care Provider [phone] Yolie Walls MD Unavailable [phone] Moiz Fan MD Unavailable [phone] Sam Bacon MD Primary Care Prov ider Unavailable Reason for Visit * Reason Comments E-prescribe Rx Request Encounter Details Date Type Department Care Team Description 04/28/2022 Refill Adult Medicine [address] [id number] Polly Perez PA-C E-prescribe Rx Request Social History Tobacco Use [...] on filedocumented in this encounter Care Teams Auto Parts Clerk Relationship Specialty Start Date End Date Nathaniel Angeles MD PCP - General Internal Medicine 01/07/22 02/20/24 Sam Bacon MD [address] [place] [address] [place] [address] PCP - General Internal Medicine 02/21/24 Yolie Walls MD Specialist Cardiology 10/07/22 03/18/24 Moiz Fan MD [address] [place] [address] [place] [address] Specialist Cardiovascular Disease 11/22/23 documented as of this encounter
--- OUTSIDE RECORDS SUMMARY | 2025-02-27 11:34 | XMS_ITS | Clinical Summary ---
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 V24, CMS/[facility] V28) INJECT UNDER THE SKIN THREE [...] type 2 with neurological manifestations (CMS/HCC V24, CMS/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 V24, CMS/[facility] V28) INJECT 30 UNITS TWICE A [...] DAY 100 each 11 01/16/20 25 Active Active Problems Problem Noted Date Diagnosed Date Renal artery stenosis ([facility] V24) 09/12/2024 Assessment & Plan (12/25/2024 [...] was hospitalized again in December 2017 at [facility] for chest pain- ruled out with serial cardiac enzymes and again had an unremarkable nremarkable stress test -More recently presented again to [facility] May 2022 with symptoms of atypical [...] mellitus type 2 wit h neurological manifestations ([facility] V24, [facility] V28) 11/28/2017 Depression 10/24/2017 Balanitis 10/06/2017 [...] pain 10/06/2017 Overview (04/22/2024): [place]/15 [place] shows right glenoid degenerative subarticular cyst vs screw tracts, 03/17/15 ([place]) XR = glenoid degenerative subarticular cyst vs screw tracts Vertebral body hemangioma 10/06/2017 Overview (04/22/2024): MRI - L 1 Chronic low back pain 03/17/2017 Overview (04/22/2024): [place] 03[place]17/15 [place] shows lumbar spasm, L3-L4 and L4-L5 DDD with secondary spondylosis at the L3-L4 level MRI lumbar spine 06/30/15 shows early degenerative changes at L4-L55 with decreased signal intesnsity and posterior bulging of annulus fibrosis, no disc extrusions or protrusions are detected. L1 vertebral body hemangioma. Encounters Date Type Department Care Team Description 01/13/2025 Telephone Endocrinology [id number] [place] [address] Lily Sepulveda PA 12/26/2024 8:45 AM EDT Office Visit Bariatric Surgery - [place] 175 [facility] [address] [place] [address] Lizz Braden PA Overweight (BMI 25.0-29.9) (Primary Dx) 12/25/2024 3:10 PM EDT Office Visit [facility] [address] [facility] [address] [place] [address] Anum Meredith, LARISSA Renal artery stenosis ([facility] V24) (Primary Dx); Palpitations; Primary hypertension; Hyperlipidemia, [...] CHOLECYSTECTOMY Medical History Medical History Date Comments Balappletis 10/06/2017 DX:Balappletis; CO MMENT: Urology referral Cervicalgia 10/06/2017 DX:Cervicalgia Chronic low back pain with l eft-sided sciatica 10/06/2017 DX:Chronic low back pain wit h left-sided sciatica; COMMENT: MRI 06/30/15 early degenerative changes L 4-5 Hyperlipidemia, mixed 10/06/2017 DX:Hyperli pidemia, mixed Hypertension 10/06/2017 DX:Hypertension Hypokalemia 10/06/2017 DX:Hypokalemia Shoulder pain, right 10/06/2017 DX:Shoulder pain, right; COMMENT: [place]/17/15 [place] XR = glenoid degenerative subarticular cyst vs screw tracts Vertebral body hemangioma 10/06/2017 DX:Ivanna tebral body hemangioma; COMMENT: MRI - L 1 Depression 10/24/2017 DX:Depression Diabetes mellitus type 2, uncomplicated ([facility] V24, [facility] V28) 10/06/2017 DX:Diabetes mellitus type 2, uncomplicated ([facility]) GERD (gastroesophageal reflu x disease) 01/31/2021 [...] Care Team (Late st Contact Info) Description 03/07/2025 7:30 AM EDT Appointment [facility] Ul[facility]ound [address] [place] [phone] 04/24/2025 8:30 AM EDT Office Visit Endocrinology [address] [phone] Lily Sepulveda PA [address] [place] [address] 07/07/2025 8:00 AM EST Office Visit Bariatric Surgery - [place] [address] [phone] Lizz Braden PA [address] [place] [address] Health Maintenance Due Date Last Done Comments [...] 12/25/2024 4:11 PM EDT Renal artery stenosis (CMS/HCC V24) Palpitations Primary hypertension HEMOGLOBIN A1C Routine [...] GEMUSE QTc 418 ms GEMUSE P Wave [place] 37 degrees GEMUSE R [place] 90 degrees GEMUSE T [place] 15 degrees GEMUSE ECG Interpretation Normal sinus rhythm Rightward axis Borderline ECG When compared with ECG of 27-DEC-2023 08:57, Criteria for Inferior infarct are no longer Present Confirmed by ROBERT MORGAN ([id number]) on 12/29/2024 7:19:45 PM GEMUSE 12/25/2024 3:13 PM EDT 12/29/2024 7:19 PM EDT Anum Meredith ENGLISH TEACHER ECG ORDERABLES Edited Resul t - Final GEMUSE * (ABNORMAL) Hemoglobin A1c (10/23/2024 11:27 AM EDT) Pathologist [facility] Hemoglobin A1C 6.5(H) <6.5 % LAB CHEMISTRY METHOD 10/23/2024 8:02 PM EDT [facility] Mean Bld Glu Estim. 140 mg/dL LAB CHEMISTRY METHOD 10/23/2024 8:02 PM EDT [facility] Blood Venous blood specimen / Unknown Venipuncture / Unknown 10/23/2024 11:27 AM EDT 10/23/2024 11:27 AM EDT Lily ATKINSON LAB BLOOD ORDERABLES Final Result Performing Organization Address City/[facility]/ZIP Co de Phone Number [facility] [address] [place] [address], * Lipid panel with reflex to direct LDL (07/24/2024 10:34 AM EST) Cholesterol 77 0 - 200 mg/dL LAB CHEMISTRY METHOD 07/24/2024 3:16 PM EST [facility] Triglycerides 76 0 - 150 mg/dL LAB CHEMISTRY METHOD 07/24/2024 3:16 PM EST [facility] HDL 41 >=40 mg/dL LAB CHEMISTRY METHOD 07/24/2024 3:16 PM EST [facility] LDL Calculated 21 0 - 100 mg/dL LAB CHEMISTRY METHOD 07/24/2024 3:16 PM EST [facility] VLDL Cholesterol José Antonio 15.2 mg/dL LAB CHEMISTRY METHOD 07/24/2024 3:16 PM EST [facility] Non HDL Chol. (LDL+VLDL) 36 <145 mg/dL LAB CHEMISTRY METHOD 07/24/2024 3:16 PM [facility] Chol/HDL Ratio 1.9 0.0 - 4.4 LAB CHEMISTRY METHOD 07/24/2024 3:16 PM [facility] Blood Venous blood specimen / Unknown Venipuncture / Unknown 07/24/2024 10:34 AM EST 07/24/2024 10:34 AM EST us Lily ATKINSON LAB BLOOD ORDERABLES Final Result [facility] [address] [place] [address], [place] [phone] * (ABNORMAL) Microalbumin creatinine urine ratio (07/24/2024 10:34 AM EST) Creatinine, Urine 306.0 mg/dL LAB CHEMISTRY METHOD 07/24/2024 3:43 PM [facility] Microalb, Ur 115.0(H) 0.0 - 29.0 mg/L LAB CHEMISTRY METHOD 07/24/2024 3:43 PM EST [facility] Microalb/Crea t Ratio 38(H) <30 mg/g creat LAB CHEMISTRY METHOD 07/24/2024 3:43 PM EST [facility] Urine Urine specimen from urethra / Unknown Non-blood Collection / Unknown 07/24/2024 10:34 AM EST 07/24/2024 10:34 AM EST us Lily ATKINSON LAB URINE ORDERABLES Final Result [facility] [address] [place] [address], [place] [phone] * Basic metabolic panel (07/24/2024 10:34 AM EST) Sodium 138 133 - 145 mmol/L LAB CHEMISTRY METHOD 07/24/2024 3:15 PM EST [facility] Potassium 3.7 3.5 - 5.5 mmol/L LAB CHEMISTRY METHOD 07/24/2024 3:15 PM [facility] Chloride 105 96 - 110 mmol/L LAB CHEMISTRY METHOD 07/24/2024 3:15 PM [facility] CO2 30 21 - 32 mmol/L LAB CHEMISTRY METHOD 07/24/2024 3:15 PM [facility] Anion Gap 3 3 - 11 LAB CHEMISTRY METHOD 07/24/2024 3:15 PM [facility] Glucose 96 70 - 100 mg/dL LAB CHEMISTRY METHOD 07/24/2024 3:15 PM [facility] BUN 17 5 - 25 mg/dL LAB CHEMISTRY METHOD 07/24/2024 3:15 PM [facility] Creatinine 0.79 0.70 - 1.30 mg/dL LAB CHEMISTRY METHOD 07/24/2024 3:15 PM [facility] eGFR 109 >=60 mL/min/1. 73m2 LAB CHEMISTRY METHOD 07/24/2024 3:15 PM [facility] Comment:Calculation based on the Chronic Kidney Disease Epidemiology Collaboration (CKD-EPI) equation refit without adjustment for race. BUN/Creatinine Ratio 21.5 LAB CHEMISTRY METHOD 07/24/2024 3:15 PM [facility] Calcium 9.6 8.5 - 10.5 mg/dL LAB CHEMISTRY METHOD 07/24/2024 3:15 PM [facility] Blood Venous blood specimen / Unknown Venipuncture / Unknown 07/24/2024 10:34 AM EST 07/24/2024 10:34 AM EST us Lily ATKINSON LAB BLOOD ORDERABLES Final Result [facility] [address] [place] [address], [place] [phone] * Diabetes Eye Exam (01/15/2024) Diabetes: Annual Retina Eye Exam ABSTRACTED Historical Provider HEALTH MAINTENANCE Final Result * HIV Screening (01/29/2021) Pathologist [facility] HIV Screening ABSTRACTED Historical Provider HEALTH MAINTENANCE Final Result * Hepatitis C Screening (01/29/2021) HM Hepatitis C Screening ABSTRACTED Historical Provider HEALTH MAINTENANCE Final Result from Last 3 Months or Most Recently Relevant to Health Maintenance Insurance [facility] MEDICARE Member Subscriber Plan / Payer (Ef fective 2019-Present) Name:JUANI FIGUEROA Relation to Subscriber:Self Name:Juani Figueroa Payer ID:[id number] Group ID:[id number] Type:Not on file Address: [address] [id number] Care Teams Education Intern Relationship Specialty Start Date End Date Sam Bacon [address] [place], [place] PCP - General 02/21/24
--- OUTSIDE RECORDS SUMMARY | 2025-02-27 11:34 | XMS_ITS | Encounter Summary ---
[facility] Organization [facility] Address [address] [place] [address] Care Team Providers Care Call Center Dispatcher Name Role Phone Keri Bar MD Primary Care Provider Tania Melendez MD Primary Care Provider Nathaniel Alberto MD Primary Care Provider [phone] Yolie Walls MD Unavailable [phone] Moiz Fan MD Unavailable [phone] Sam Bacon MD Primary Care Prov ider Unavailable Reason for Visit * Reason Onset Date Comments Medication 08/12/2020 Incoming Fax [facility] pharmacy Encounter Details Date Type Department Care Team Description 08/12/2020 Refill Cardio PVC POC [address] [place] [address] Yolie Walls MD [address] [place] [address] [id number] Medication (Incoming Fax [facility] pharmacy ) Social History Tobacco Use Types Packs/Day Years [...] or suspected to have Coronavirus / COVID-19? Unable to assess 08/12/2020 4:17 PM EST documented as of this encounter Miscellaneous Notes * Telephone Encounter - Keri Bar MD - 08/13/2020 12:05 PM EST yes * Telephone Encounter - Ashia Brannon C.M.A. - 08/12/2020 4:[address] Bar ; Would you consider managing pts metoprolol tart 100mg bid. We last saw pt on 06/2019 and we dont need to see him regularly; only PRN. * Telephone Encounter - Yolie Walls MD - 08/12/2020 4:42 PM EST Yup. * Telephone Encounter - Ashia Brannon C.M.A. - 08/12/2020 2:09 PM EST Incoming fax from [facility] for Metorpolol tart 100mg bid. You last saw pt on 06/2019 withplan to only see as needed. Defer rx to PCP ? documented in this encounter Plan of Treatment Not on file documented as of this encounter Visit Diagnoses Not on filedocumented in this encounter Care Teams Call Center Dispatcher Relationship Specialty Start Date End Date Keri Bar MD PCP - General Internal Medicine 10/05/17 12/21/20 Tania Ramírez MD PCP - General Internal Medicine 12/22/20 01/06/22 Nathaniel Angeles MD PCP - General Internal Medicine 01/07/22 02/20/24 Sam Bacon MD [address] [place] [address] [place] [address] PCP - General Internal Medicine 02/21/24 Yolie Walls MD Specialist Cardiology 10/07/22 03/18/24 Moiz Fan MD [address] [place] [address] [place] [address] Specialist Cardiovascular Disease 11/22/23 documented as of this encounter
--- OUTSIDE RECORDS SUMMARY | 2025-02-27 11:34 | XMS_ITS | Encounter Summary ---
Author Organization [facility] Address [address] [place] [address] Care Team Providers Care Cuff Presser Name Role Phone Tania Ramírez MD Primary Care Provider Nathaniel Alberto MD Primary Care Provider [phone] Yolie Walls MD Unavailable [phone] Moiz Fan MD Unavailable [phone] aSm Bacon MD Primary Care Prov ider Unavailable Encounter Details Date Type Department Care Team Description 01/22/2021 [employer] Umpire Report Medical Records [address] [place] [address] Hang Cheng DO Social History Tobacco Use Types Packs/Day Years [...] have Coronavirus / COVID-19? No / Unsure 01/14/2021 8:43 AM EDT documented as of this encounter Plan of Treatment Not on file documented as of this encounter Visit Diagnoses Not on filedocumented in this encounter Care Teams Cuff Presser Relationship Specialty Start Date End Date Tania Ramírez MD PCP - General Internal Medicine 12/22/20 01/06/22 Nathaniel Angeles MD PCP - General Internal Medicine 01/07/22 02/20/24 Sam Bacon MD [address] [place] [address] [place] [address] PCP - General Internal Medicine 02/21/24 Yolie Walls MD Specialist Cardiology 10/07/22 03/18/24 Moiz Fan MD [address] [place] [address] [place] [address] Specialist Cardiovascular Disease 11/22/23 documented as of this encounter
--- OUTSIDE RECORDS SUMMARY | 2025-02-27 11:34 | XMS_ITS | Encounter Summary ---
Author Organization [facility] Address [address] [place] [address] Care Team Providers Care Food Tray Assembler Name Role Phone Nathaniel Angeles MD Primary Care Provider [phone] Yolie Walls MD Unavailable [phone] Moiz Fan MD Unavailable [phone] Sam Bacon MD Primary Care Prov ider Unavailable Reason for Visit * Reason Onset Date Comments refill request 02/10/2023 Encounter Details Date Type Department Care Team Description 02/10/2023 Refill Internal Medicine - [address], [address] [place] [address] Nathaniel Angeles MD [address] [place], [place] [id number] refill request Social History Tobacco Use Types [...] suspected to have Coronavirus/COVID-19? No / Unsure 01/26/2023 12:57 PM EDT documented as of this encounter Miscellaneous Notes * Telephone Encounter - Kalyn Rodriguez - 02/10/2023 11:00 AM EDT BP Readings from Last 3 Encounters: 12/28/22 (!) 150/80 12/15/22 139/88 12/12/22 (!) 142/90 documented in this encounter Plan of Treatment Not on file documented as of this encounter Visit Diagnoses Not on filedocumented in this encounter Care Teams Food Tray Assembler Relationship Specialty Start Date End Date Nathaniel Angeles MD PCP - General Internal Medicine 01/07/22 02/20/24 Sam Bacon MD [address] [place] [address] Dr [address] [place] [address] PCP - General Internal Medicine 02/21/24 Yolie Walls MD Specialist Cardiology 10/07/22 03/18/24 Moiz Fan MD [address] [place] [address] Dr [address] [place] [address] Specialist Cardiovascular Disease 11/22/23 documented as of this encounter
--- OUTSIDE RECORDS SUMMARY | 2025-02-27 11:34 | XMS_ITS | Encounter Summary ---
Author Organization [facility] Address [address] [place] [address] Care Team Providers Care Leather Goods Sales Representative Name Role Phone Nathaniel Angeles MD Primary Care Provider [phone] Yolie Walls MD Unavailable [phone] Moiz Fan MD Unavailable [phone] Sam Bacon MD Primary Care Prov ider Unavailable Reason for Referral * Non STEVE (Priority) - PVCA: No Auth Needed/Booked Specialty Diagnoses / Procedures Referred By Contac t Referred To Contact Cardiology Procedures REFERRAL TO CARDIOLOGY Nathaniel Angeles MD [address] [place] [address] Cardio Pvc/Stfd [address] [facility] [address] [place] [address] Referral ID Status Reason Start Date Expiration Date V isits Requested Visits Authorized PVCA: No Auth Needed/Booke d 10/06/2022 10/06/2023 1 1 Reason for Visit * Reason Onset Date Comments Boring And Filling Machine Operator Feedback 10/06/2022 cardiology Encounter Details Date Type Department Care Team Description 10/06/2022 Telephone Internal Medicine - [address], [address] [place] [address] Nathaniel Angeles MD [address] [place] [address] Boring And Filling Machine Operator Feedback (cardiology) Social History Tobacco Use Types Packs/Day Years [...] encounter Miscellaneous Notes * Telephone Encounter - Devora Castillo - 10/06/2022 11:11 AM EDT Good morning Patient called requesting a referral to see a shirt sewer, I have pended a new order please reviewand sign. Thank you, Devora Orthopedics Navigator [phone] [facility] Medical [facility] documented in this encounter Plan of Treatment Not on file documented as of this encounter Visit Diagnoses Not on filedocumented in this encounter Care Teams Leather Goods Sales Representative Relationship Specialty Start Date End Date Nathaniel Angeles MD PCP - General Internal Medicine 01/07/22 02/20/24 Sam Bacon MD [address] [place] [address] Dr [address] [place] [address] PCP - General Internal Medicine 02/21/24 Yolie Walls MD Specialist Cardiology 10/07/22 03/18/24 Moiz Fan MD [address] [place] [address] Dr [address] [place] [address] Specialist Cardiovascular Disease 11/22/23 documented as of this encounter
--- OUTSIDE RECORDS SUMMARY | 2025-02-27 11:34 | XMS_ITS | Encounter Summary ---
Author Organization [facility] Address [address] [place] [address] Care Team Providers Care R And D Lab Technician Name Role Phone Nathaniel Angeles MD Primary Care Provider [phone] Yolie Walls MD Unavailable [phone] Moiz Fan MD Unavailable [phone] Sam Bacon MD Primary Care Prov ider Unavailable Encounter Details Date Type Department Care Team Description 12/18/2023 Transfer Records Medical Records [address] [place] [address] Abstract, Provider Social History Tobacco Use Types [...] on filedocumented in this encounter Care Teams R And D Lab Technician Relationship Specialty Start Date End Date Nathaniel Angeles MD PCP - General Internal Medicine 01/07/22 02/20/24 Sam Bacon MD [address] [place] [address] [place] [address] PCP - General Internal Medicine 02/21/24 Yolie Walls MD Specialist Cardiology 10/07/22 03/18/24 Moiz Fan MD [address] [place] [address] [place] [address] Specialist Cardiovascular Disease 11/22/23 documented as of this encounter
--- OUTSIDE RECORDS SUMMARY | 2025-02-27 11:34 | XMS_ITS | Encounter Summary ---
Author [facility] Address [address] [place] [address] Care Team Providers Care Regulatory Affairs Analyst Name Role Phone Keri Bar MD Primary Care Provider Tania Melendez MD Primary Care Provider Nathaniel Alberto MD Primary Care Provider [phone] Yolie Walls MD Unavailable [phone] Moiz Fan MD Unavailable [phone] Sam Bacon MD Primary Care Prov ider Unavailable Encounter Details Date Type Department Care Team Description 08/25/2020 Old Medical Records Medical Records [address] [place] [address] Abstract, Provider Social History Tobacco Use Types [...] have Coronavirus / COVID-19? No / Unsure 08/26/2020 9:00 AM EST documented as of this encounter Plan of Treatment Not on file documented as of this encounter Visit Diagnoses Not on filedocumented in this encounter Care Teams Regulatory Affairs Analyst Relationship Specialty Start Date End Date Keri Bar MD PCP - General Internal Medicine 10/05/17 12/21/20 Tania Ramírez MD PCP - General Internal Medicine 12/22/20 01/06/22 Nathaniel Angeles MD PCP - General Internal Medicine 01/07/22 02/20/24 Sam Bacon MD [address] [place] [address] [place] [address] PCP - General Internal Medicine 02/21/24 Yolie Walls MD Specialist Cardiology 10/07/22 03/18/24 Moiz Fan MD [address] [place] [address] [place] [address] Specialist Cardiovascular Disease 11/22/23 documented as of this encounter
--- OUTSIDE RECORDS SUMMARY | 2025-02-27 11:34 | XMS_ITS | Encounter Summary ---
Author Organization [facility] Address [address] [place] [address] Care Team Providers Care Tomahawk Weapon System Operator Name Role Phone Tania Ramírez MD Primary Care Provider Nathaniel Alberto MD Primary Care Provider [phone] Yolie Walls MD Unavailable [phone] Moiz Fan MD Unavailable [phone] Sam Bacon MD Primary Care Prov ider Unavailable Reason for Visit * Reason Comments E-prescribe Rx Request Encounter Details Date Type Department Care Team Description 05/20/2021 Refill Adult Medicine B - [address] [address] Lily Sepulveda PA-C [address] [place] [address] E-prescribe Rx Request Social History Tobacco Use [...] encounter Miscellaneous Notes * Telephone Encounter - Lily Sepulveda PA-C - 05/24/2021 10:50 AM EST I refilled this medication during our visit documented in this encounter Plan of Treatment Not on file documented as of this encounter Visit Diagnoses Not on filedocumented in this encounter Care Teams Tomahawk Weapon System Operator Relationship Specialty Start Date End Date Tania Ramírez MD PCP - General Internal Medicine 12/22/20 01/06/22 Nathaniel Angeles MD PCP - General Internal Medicine 01/07/22 02/20/24 Sam Bacon MD [address] [place] [address] Dr Johnson [address] [place] [address] PCP - General Internal Medicine 02/21/24 Yolie Walls MD Specialist Cardiology 10/07/22 03/18/24 Moiz Fan MD [address] [place] [address] Dr Johnson [address] [place] [address] Specialist Cardiovascular Disease 11/22/23 documented as of this encounter
--- OUTSIDE RECORDS SUMMARY | 2025-02-27 11:34 | XMS_ITS | Encounter Summary ---
Author Organization [facility] Address [address] [place] [address] Care Team Providers Care Piece Dye Worker Name Role Phone Nathaniel Angeles MD Primary Care Provider [phone] Yolie Walls MD Unavailable [phone] Moiz Fan MD Unavailable [phone] Sam Bacon MD Primary Care Prov ider Unavailable Encounter Details Date Type Department Care Team Description 12/13/2022 Enterprise Account Executive Report Medical Records [address] [place] [address] Hang Cheng, Social History Tobacco Use Types [...] suspected to have Coronavirus/COVID-19? No / Unsure 12/15/2022 3:17 PM EDT documented as of this encounter Plan of Treatment Not on file documented as of this encounter Visit Diagnoses Not on filedocumented in this encounter Care Teams Piece Dye Worker Relationship Specialty Start Date End Date Nathaniel Angeles MD PCP - General Internal Medicine 01/07/22 02/20/24 Sam Bacon MD [address] [place] [address] Dr Johnson [address] [place] [address] PCP - General Internal Medicine 02/21/24 Yolie Walls MD Specialist Cardiology 10/07/22 03/18/24 Moiz Fan MD [address] [place] [address] [place] [address] Specialist Cardiovascular Disease 11/22/23 documented as of this encounter
--- OUTSIDE RECORDS SUMMARY | 2025-02-27 11:35 | XMS_ITS | Encounter Summary ---
Author Organization [employer] Address 75 [facility] 7t [place] [address] Care Team Providers Care Manager Testing Name Role Phone Sam Bacon MD Primary Care Prov ider Reason for Visit * Reason Onset Date Comments Med Refill 12/05/2024 Encounter Details Date Type Department Care Team ([facility] Contact Info) Description 12/05/2024 Refill [facility] CHC MED & PEDS [address] [place] [address] Sam Bacon MD [address] [place] [address] Social History Tobacco Use Types Packs/Day Years [...] 10:15 AM EDT Office Visit [facility] MED & PEDS [address] [place] [address] Sam Bacon MD [address] [place] [address] 04/18/2025 8:00 AM EDT Office Visit [facility] ADULT DENTAL [address] [place] [address] Adolph Cummings documented as of this encounter Visit Diagnoses Not on filedocumented in this encounter Additional Health Concerns Assessment Noted Time PHQ-9 Depression Total Score: 11 024 9:07 AM EDT documented as of this encounter Care Teams Manager Testing Relationship Specialty Start Date End Date Sam Bacon MD [address] [place] [address] PCP - General Internal Medicine 09/14/23 documented as of this encounter
--- OUTSIDE RECORDS SUMMARY | 2025-02-27 11:35 | XMS_ITS | Encounter Summary ---
Author Organization [employer] Address 75 [facility] 7t [place] [address] Care Team Providers Care Ibm Bpm Architect Name Role Phone Sam Bacon MD Primary Care Prov ider Encounter Details Date Type Department Care Team ([facility] st Contact Info) Description 12/12/2024 Orders Only [facility] CHC MED & PEDS [address] [place], [place] [id number] Sam Bacon MD [address] [place] [address] Type 2 diabetes mellitus with hyperglycemia, with long-term current use of insulin ([facility]) (Primary Dx) Social History Tobacco Use Types [...] [facility] MED & PEDS [address] [place] [address] Sam Bacon MD [address] [place] [address] 04/18/2025 8:00 AM EDT Office Visit [facility] ADULT DENTAL [address] [place] [address] Adolph Cummings documented as of this encounter Visit Diagnoses Diagnosis Type 2 diabetes mellitus with hyperglycemia, with long-term current use of insulin ([facility])- Primary documented in this encounter Additional Health Concerns Assessment Noted Time PHQ-9 Depression Total Score: 11 024 9:07 AM EDT documented as of this encounter Care Teams Ibm Bpm Architect Relationship Specialty Start Date End Date Sam Bacon MD [address] [place] [address] PCP - General Internal Medicine 09/14/23 documented as of this encounter
--- OUTSIDE RECORDS SUMMARY | 2025-02-27 11:35 | XMS_ITS | Encounter Summary ---
Author Organization [employer] Address 75 [facility] 7t [place] [address] Care Team Providers Care Cost Recovery Technician Name Role Phone Sam Bacon MD Primary Care Prov ider Reason for Visit * Reason Onset Date Comments Med Refill 12/05/2024 Encounter Details Date Type Department Care Team ([facility] Contact Info) Description 12/05/2024 Refill [facility] CHC MED & PEDS [address] [place] [address] Sam Bacon MD [address] [place] [address] Social History Tobacco Use Types Packs/Day Years [...] Description 03/27/2025 10:15 AM EDT Office Visit [facility] MED & PEDS [address] [place] [address] Sam Bacon MD [address] [place] [address] 04/18/2025 8:00 AM EDT Office Visit [facility] ADULT DENTAL [address] [place] [address] Adolph Cummings documented as of this encounter Visit Diagnoses Not on filedocumented in this encounter Additional Health Concerns Assessment Noted Time PHQ-9 Depression Total Score: 11 024 9:07 AM EDT documented as of this encounter Care Teams Cost Recovery Technician Relationship Specialty Start Date End Date Sam Bacon MD [address] [place] [address] PCP - General Internal Medicine 09/14/23 documented as of this encounter
--- OUTSIDE RECORDS SUMMARY | 2025-02-27 11:35 | XMS_ITS | Encounter Summary ---
Author Organization [employer] Address 75 [facility] 7t [place] [address] Care Team Providers Care Garnett Feeder Name Role Phone Sam Bacon MD Primary Care Prov ider Reason for Visit * Reason Onset Date Comments Med Refill 12/05/2024 Encounter Details Date Type Department Care Team ([facility] Contact Info) Description 12/05/2024 Refill [facility] CHC MED & PEDS [address] [place] [address] Sam Bacon MD [address] [place] [address] Social History Tobacco Use Types Packs/Day Years [...] Description 03/27/2025 10:15 AM EDT Office Visit [facility] MED & PEDS [address] [place] [address] Sam Bacon MD [address] [place] [address] 04/18/2025 8:00 AM EDT Office Visit [facility] ADULT DENTAL [address] [place] [address] Adolph Cummings documented as of this encounter Visit Diagnoses Not on filedocumented in this encounter Additional Health Concerns Assessment Noted Time PHQ-9 Depression Total Score: 11 024 9:07 AM EDT documented as of this encounter Care Teams Garnett Feeder Relationship Specialty Start Date End Date Sam Bacon MD [address] [place] [address] PCP - General Internal Medicine 09/14/23 documented as of this encounter
--- OUTSIDE RECORDS SUMMARY | 2025-02-27 11:35 | XMS_ITS | Encounter Summary ---
Author Organization [employer] Address 75 [facility] 7t [place] [address] Care Team Providers Care Protection Agent Name Role Phone Sam Bacon MD Primary Care Prov ider Reason for Visit * Reason Onset Date Comments Med Refill 12/05/2024 Encounter Details Date Type Department Care Team ([facility] Contact Info) Description 12/05/2024 Refill [facility] CHC MED & PEDS [address] [place] [address] Sam Bacon MD [address] [place] [address] Social History Tobacco Use Types Packs/Day Years [...] 10:15 AM EDT Office Visit [facility] MED & PEDS [address] [place] [address] Sam Bacon MD [address] [place] [address] 04/18/2025 8:00 AM EDT Office Visit [facility] ADULT DENTAL [address] [place] [address] Adolph Cummings documented as of this encounter Visit Diagnoses Not on filedocumented in this encounter Additional Health Concerns Assessment Noted Time PHQ-9 Depression Total Score: 11 024 9:07 AM EDT documented as of this encounter Care Teams Protection Agent Relationship Specialty Start Date End Date Sam Bacon MD [address] [place] [address] PCP - General Internal Medicine 09/14/23 documented as of this encounter
--- OUTSIDE RECORDS SUMMARY | 2025-02-27 11:35 | XMS_ITS | Encounter Summary ---
Author Organization [employer] Address [address] [facility] 7t [place] [address] Care Team Providers Care Crew Attendant Name Role Phone Sam Bacon MD Primary Care Prov ider Reason for Visit * Reason Onset Date Comments Med Refill 12/05/2024 Encounter Details Date Type Department Care Team ([facility] Contact Info) Description 12/05/2024 Refill [facility] CHC MED & PEDS [address] [place] [address] Sam Bacon MD [address] [place] [address] Type 2 diabetes mellitus with hyperglycemia, with long-term current use of insulin ([facility]) Social History Tobacco Use Types Packs/Day Years [...] Description 03/27/2025 10:15 AM EDT Office Visit [facility] MED & PEDS [address] [place] [address] Sam Bacon MD [address] [place] [address] 04/18/2025 8:00 AM EDT Office Visit [facility] ADULT DENTAL [address] [place] [address] Adolph Cummings documented as of this encounter Visit Diagnoses Diagnosis Type 2 diabetes mellitus with hyperglycemia, with long-term current use of insulin ([facility]) documented in this encounter Additional Health Concerns Assessment Noted Time PHQ-9 Depression Total Score: 11 024 9:07 AM EDT documented as of this encounter Care Teams Crew Attendant Relationship Specialty Start Date End Date Sam Bacon MD [address] [place] [address] PCP - General Internal Medicine 09/14/23 documented as of this encounter
--- OUTSIDE RECORDS SUMMARY | 2025-02-27 11:35 | XMS_ITS | Encounter Summary ---
Author Organization [employer] Address 75 [facility] 7t [place] [address] Care Team Providers Care Apparel Cutter Name Role Phone Sam Bacon MD Primary Care Prov ider Reason for Visit * Reason Onset Date Comments Med Refill 12/05/2024 Encounter Details Date Type Department Care Team ([facility] Contact Info) Description 12/05/2024 Refill [facility] CHC MED & PEDS [address] [place] [address] Sam Bacon MD [address] [place] [address] Social History Tobacco Use Types Packs/Day Years [...] [facility] MED & PEDS [address] [place] [address] Sam Bacon MD [address] [place] [address] 04/18/2025 8:00 AM EDT Office Visit [facility] ADULT DENTAL [address] [place] [address] Adolph Cummings documented as of this encounter Visit Diagnoses Not on filedocumented in this encounter Additional Health Concerns Assessment Noted Time PHQ-9 Depression Total Score: 11 024 9:07 AM EDT documented as of this encounter Care Teams Apparel Cutter Relationship Specialty Start Date End Date Sam Bacon MD [address] [place] [address] PCP - General Internal Medicine 09/14/23 documented as of this encounter
--- OUTSIDE RECORDS SUMMARY | 2025-02-27 11:35 | XMS_ITS | Encounter Summary ---
Author Organization [facility] Address [address] [place] [address] Care Team Providers Care Creative Resource Manager Name Role Phone Keri Bar MD Primary Care Provider Tania Melendez MD Primary Care Provider Nathaniel Alberto MD Primary Care Provider [phone] Yolie Walls MD Unavailable [phone] Moiz Fan MD Unavailable [phone] Sam Bacon MD Primary Care Prov ider Unavailable Reason for Visit * Reason Onset Date Comments Prior Authorization 03/26/2018 Encounter Details Date Type Department Care Team Description 03/26/2018 Telephone Cardiology - [address] [id number] Yolie Walls MD [address] [place] [phone] Prior Authorization Social History Tobacco Use Types [...] encounter Miscellaneous Notes * Telephone Encounter - Susanna Galeas - 04/05/2018 8:37 AM EDT Echo booked for 04/24/18 * Telephone Encounter - Eileen Jumana - 04/04/2018 4:52 PM EDT UPDATED APPROVAL [facility] Approved 04/03/18 - 05/26/18 [id number] [facility] Updated approval shows [facility] as facility. * Telephone Encounter - Eileen Jumana - 03/30/2018 11:[address] [facility] Approved 03/30/18 - 06/06/18 [id number] [facility] * Telephone Encounter - Eileen Jumana - 03/26/2018 3:01 PM EDT Clinicals faxed to [facility] today 03/26/18. Will advise when approval/denial is obtained. * Telephone Encounter - Susanna Galeas - 03/26/2018 11:53 AM EDT This pt has CCA, the echocardiogram requires prior-auth. Thank you. Echo in [place] scheduled for 04/24/18 * Telephone Encounter - Marguerite Estes L.P.N. - 03/26/2018 10:33 AM EDT Wrong pool * Telephone Encounter - Susanna Galeas - 03/26/2018 9:02 AM EDT This pt has CCA, the echocardiogram requires prior-auth. Thank you documented in this encounter Plan of Treatment Not on file documented as of this encounter Visit Diagnoses Not on filedocumented in this encounter Care Teams Creative Resource Manager Relationship Specialty Start Date End Date Keri Bar MD PCP - General Internal Medicine 10/05/17 12/21/20 Tania Ramírez MD PCP - General Internal Medicine 12/22/20 01/06/22 Nathaniel Angeles MD PCP - General Internal Medicine 01/07/22 02/20/24 Sam Bacon MD [address] [place] [address] Dr [address] [place] [address] PCP - General Internal Medicine 02/21/24 Yolie Walls MD Specialist Cardiology 10/07/22 03/18/24 Moiz Fan MD [address] [place] [address] [address] [place] [address] Specialist Cardiovascular Disease 11/22/23 documented as of this encounter
--- OUTSIDE RECORDS SUMMARY | 2025-02-27 11:35 | XMS_ITS | Encounter Summary ---
Author Organization [employer] Address 75 [facility] 7t [place] [address] Care Team Providers Care Inspector Machined Parts Name Role Phone Sam Bacon MD Primary Care Prov ider Reason for Visit * Reason Onset Date Comments Med Refill 12/05/2024 Encounter Details Date Type Department Care Team ([facility] Contact Info) Description 12/05/2024 Refill [facility] CHC MED & PEDS [address] [place] [address] Sam Bacon MD [address] [place] [address] Social History Tobacco Use Types Packs/Day Years [...] Description 03/27/2025 10:15 AM EDT Office Visit [facility] MED & PEDS [address] [place] [address] Sam Bacon MD [address] [place] [address] 04/18/2025 8:00 AM EDT Office Visit [facility] ADULT DENTAL [address] [place] [address] Adolph Cummings documented as of this encounter Visit Diagnoses Not on filedocumented in this encounter Additional Health Concerns Assessment Noted Time PHQ-9 Depression Total Score: 11 024 9:07 AM EDT documented as of this encounter Care Teams Inspector Machined Parts Relationship Specialty Start Date End Date Sam Bacon MD [address] [place] [address] PCP - General Internal Medicine 09/14/23 documented as of this encounter
--- OUTSIDE RECORDS SUMMARY | 2025-02-27 11:35 | XMS_ITS | Encounter Summary ---
Author Organization [employer] Address [address] [facility] 7t [place] [address] Care Team Providers Care Mixing Machine Tender Cork Rod Name Role Phone Sam Bacon MD Primary Care Prov ider Reason for Visit * Reason Onset Date Comments Med Refill 12/05/2024 Encounter Details Date Type Department Care Team ([facility] Contact Info) Description 12/05/2024 Refill [facility] CHC MED & PEDS [address] [place] [address] Sam Bacon MD [address] [place] [address] Social History Tobacco Use Types Packs/Day Years [...] 03/27/2025 10:15 AM EDT Office Visit [facility] MED & PEDS [address] [place] [address] Sam Bacon MD [address] [place] [address] 04/18/2025 8:00 AM EDT Office Visit [facility] ADULT DENTAL [address] [place] [address] Adolph Cummings documented as of this encounter Visit Diagnoses Not on filedocumented in this encounter Additional Health Concerns Assessment Noted Time PHQ-9 Depression Total Score: 11 024 9:07 AM EDT documented as of this encounter Care Teams Mixing Machine Tender Cork Rod Relationship Specialty Start Date End Date Sam Bacon MD [address] [place] [address] PCP - General Internal Medicine 09/14/23 documented as of this encounter
--- OUTSIDE RECORDS SUMMARY | 2025-02-27 11:35 | XMS_ITS | Encounter Summary ---
Author Organization [employer] Address [address] [facility] 7t [place] [address] Care Team Providers Care Talent Acquisition Project Manager Name Role Phone Sam Bacon MD Primary Care Prov ider Reason for Visit * Reason Onset Date Comments Med Refill 12/05/2024 Encounter Details Date Type Department Care Team ([facility] Contact Info) Description 12/05/2024 Refill [facility] CHC MED & PEDS [address] [place] [address] Sam Bacon MD [address] [place] [address] Social History Tobacco Use Types Packs/Day Years [...] Description 03/27/2025 10:15 AM EDT Office Visit [facility] MED & PEDS [address] [place] [address] Sam Bacon MD [address] [place] [address] 04/18/2025 8:00 AM EDT Office Visit [facility] ADULT DENTAL [address] [place] [address] Adolph Cummings documented as of this encounter Visit Diagnoses Not on filedocumented in this encounter Additional Health Concerns Assessment Noted Time PHQ-9 Depression Total Score: 11 024 9:07 AM EDT documented as of this encounter Care Teams Talent Acquisition Project Manager Relationship Specialty Start Date End Date Sam Bacon MD [address] [place] [address] PCP - General Internal Medicine 09/14/23 documented as of this encounter
[2025-02-27 14:52] LABS: MANUAL DIFF FLAG NO
[2025-02-27 15:01] LABS: Hematocrit 39.7 % (42.0-52.0); Hemoglobin 13.7 g/dl (14.0-18.0); Imm Gran Abs Auto 0.01 X10*3/uL (0.00-0.03); Imm Gran Pct Auto 0.2 % (0.0-0.4); Lymphocytes Absolute Auto 2.5 X10*3/uL (1.2-4.9); Mean Corpuscular HGB Conc 34.5 g/dl (31.0-36.0); Mean Corpuscular Hemoglobin 30.4 pg (27.0-33.0); Mean Corpuscular Volume 88.2 fL (80.0-98.0); NRBC Abs Auto 0.000 X10*3/uL (0.0-0.012); NRBC Pct Auto 0.0 /100WBC (0.0-0.2); Platelet Count 245 X10*3/uL (160-400); Red Blood Count 4.50 X10*6/uL (4.60-5.80); White Blood Count 6.6 X10*3/uL (4.8-10.8)
[2025-02-27 15:02] LABS: Reticulocytes Absolute 0.050 X10*6/uL (0.026-0.095)
[2025-02-27 15:40] LABS: Lithium 0.63 mmol/L (0.60-1.20)
[2025-02-27 15:56] LABS: Alanine Aminotransferase 43 U/L (0-40); Albumin Level 4.8 g/dL (3.5-5.0); Alkaline Phosphatase 74 U/L (39-117); Anion Gap 12 (12-20); Aspartate Amino Transferase 53 U/L (5-37); Blood Urea Nitrogen 18 mg/dL (9-16); Calcium 9.3 mg/dL (8.4-10.2); Carbon Dioxide 26 mmol/L (22-29); Chloride 103 mmol/L (96-108); Estimated Glomerular Filt Rate > 60; Iron 151 mcg/dL (45-160); Percent Iron Saturation 54 % (15-50); Potassium 4.2 mmol/L (3.3-5.1); Sodium 137 mmol/L (135-145); Total Iron Binding Capacity 279 mcg/dL (228-428); Total Protein 7.5 g/dL (6.5-8.0); Unsaturated Iron Binding 128 ug/dL
[2025-02-27 16:14] LABS: Ferritin 203 ng/mL (20-250)
[2025-02-27 16:16] LABS: Thyroid Stimulating Hormone 1.52 uIU/mL (0.32-4.0)
== END 2025-02-27 10:17 | disposition home or self-care (01) ==
LOC: HO.CHCLDS 10:16
PROVIDERS: Referring Provider Nurse Practitioner; Visit Provider Internal Medicine
DX: F43.12 Post-traumatic stress disorder, chronic (principal); F25.0 Schizoaffective disorder, bipolar type; D64.9 Anemia, unspecified
CPT/HCPCS: 36415; 80053; 80178; 82728; 83540; 84436; 84443; 84480; 85025; 85045